=== PATIENT | female | born 1935 | race Caucasian/White ===

== ENCOUNTER 2019-02-03 09:34 | Inpatient (IN) | payer MEDICARE, BC, SELFPAY ==
[2019-02-03] VITALS (8 sets, daily range): BP systolic 111–167; BP diastolic 48–139; PULSE 62–79; RESP 13–20; TEMP 36.4–36.8; O2SAT 95–100; BMI 26.4; BMI 27.3; BMI 27.4
--- NOTE | 2019-02-03 09:39 | RAD_ITS ---
STUDY: X-RAY - LEFT TIBIA AND FIBULA REASON FOR EXAM: Female, 83 years old. Trauma TECHNIQUE: 2 view(s) of the tibia and fibula were obtained. COMPARISON: None. FINDINGS: Transverse fracture of the medial malleolus. Oblique fracture of the lateral malleolus. Widening of the ankle mortise. The proximal tibia and fibula are intact. RAD/Tibia & Fibula 2 Views IMPRESSION: Transverse fracture of the medial malleolus. Oblique fracture of the lateral malleolus. Widening of the ankle mortise. Electronically Signed: Ed Coyle MD at 10:37 EDT Tel , Service support ,
--- NOTE | 2019-02-03 09:44 | ED.VISSUMM ---
- ER Visit Summary Date of Service: 02/03/19 Chief Complaint: Left ankle injury History of Present Illness: The patient is a 83 F presents to the emergency department left ankle injury. Patient states she is going to the dentist this morning. She states that she stepped into the office and lost her balance. She twisted her left ankle and fell to the ground. She states it was swollen and there was a large bump. She pushed on it and it seemed to go back to normal. She is been unable to bear weight since. She did not strike her head. She denies loss of consciousness. She is otherwise been in her normal state of health. Physical Examination: Exam relatively unremarkable. Patient does have obvious deformity of the left ankle. Pulses are normal. Skin is intact. She does have some mild pain at the proximal fibula. Test Results: [] Emergency Department Course and Treatment: The patient has no tenting of the skin. X-rays do confirm a bimalleolar fracture. The patient was consented for conscious sedation and reduction. She was given propofol. When she was comfortably sedated, the ankle was reduced. She was placed in a sugar tong splint with a posterior plate. X-rays do show good reduction. I did discuss the patient with Dr. Cruz. He does feel that he will be able to repair this tomorrow. The patient will be admitted to the hospitalist for medical clearance and orthopedic intervention. Treatment Plan: [] Disposition: Admission Impression: 1. Closed left bimalleolar fracture 2. Conscious sedation 3. Fracture reduction 4. Splint by ED physician This note was generated with [employer] dictation software. It may contain incorrect words, spelling, and punctuation that were not noted in review of the chart prior to signing ED Disposition - Plan for ED Patient: Disposition: Acute Care [facility]
[2019-02-03] MEDS: Morphine 4 MG/ML Syringe IV (09:57)
[2019-02-03] MEDS: Ondansetron 4 MG/2 ML Vial IV (09:58)
--- NOTE | 2019-02-03 11:00 | RAD_ITS ---
STUDY: X-RAY - LEFT ANKLE REASON FOR EXAM: Female, 83 years old. Post reduction TECHNIQUE: 2 view(s) of the ankle. COMPARISON: Same day FINDINGS: Interval reduction of the ankle mortise and bimalleolar fractures. Mild residual mortise widening by approximately 4 mm. Casting material obscures fine detail. RAD/Ankle 2 Views IMPRESSION: Interval reduction of the ankle mortise and bimalleolar fractures. Mild residual mortise widening by approximately 4 mm. Electronically Signed: Ed Coyle MD at 11:52 EDT Tel , Service support ,
[2019-02-03] MEDS: Propofol 200 MG/20 ML Vial IV BOLUS (11:15)
--- NOTE | 2019-02-03 11:37 | EKG12_ITS ---
Test Reason : Blood Pressure : / mmHG Vent. Rate : 065 BPM Atrial Rate : 065 BPM P-R Int : 148 ms QRS Dur : 070 ms QT Int : 382 ms P-R-T Axes : 009 047 -11 degrees QTc Int : 397 ms Normal sinus rhythm Normal ECG Confirmed by SHERI HAMILTON, ANDREWS ([id number]), technical writer and editor KARINE HUGHES ([id number]) on 02/05/2019 1:18:32 PM Referred By: Juliette Reynaga Confirmed By:ANDREWS WADE MD
--- NOTE | 2019-02-03 11:44 | NURSING ---
NO OLD EKGS
--- NOTE | 2019-02-03 11:45 | RAD_ITS ---
STUDY: X-RAY CHEST REASON FOR EXAM: Female, 83 years old. Cough TECHNIQUE: Single frontal view of the chest. COMPARISON: None. FINDINGS: Moderate hiatal hernia. The lungs are clear and expanded. There is no demonstrated pleural abnormality. Normal size heart. Normal mediastinum and demetria. Normal visualized pulmonary arteries. Normal visualized aortic arch and descending thoracic aorta. Normal visualized thoracic spine. Normal visualized ribs, clavicles, and shoulders. There is no demonstrated abnormality of the visualized soft tissue structures of the upper abdomen. RAD/Chest 1 View (Portable) IMPRESSION: Moderate hiatal hernia. No evidence of acute intestinal pathology or acute obstructive uropathy. Electronically Signed: Ed Coyle MD at 12:04 EDT Tel , Service support ,
--- NOTE | 2019-02-03 11:49 | NURSING ---
DR LUIS F BUCHANAN
--- NOTE | 2019-02-03 11:54 | NURSING ---
MED SURG LEFT ANKLE FX SEMENTI
[2019-02-03 12:07] LABS: Absolute Lymphocyte Count 0.92 X10^3/ul (0.83-4.51); Absolute Neutrophil Count 5.1 X10^3/uL (2.0-7.7); Basophil# 0.02 X10^3/uL; Basophil% 0.3 % (0-1); Eosinophil# 0.02 X10^3/uL; Eosinophils% 0.3 % (0-5); Hematocrit 38.1 % (37-47); Hemoglobin 12.5 g/dl (12.0-15.0); Lymphocyte # 0.92 X10^3/ul (4.0); Mean Corp Hgb Conc 32.8 g/gl (32-36); Mean Corpuscular Hgb 32.3 pg (27.0-32.0); Mean Corpuscular Volume 98.4 fL (81-99); Mean Platelet Vol. 10.4 fl (6.2-12.0); Monocyte# 0.51 X10^3/uL; Monocyte% 7.8 % (0-10); Neutrophil # 5.07 X10^3/uL (2.7-7.7); Neutrophil % 77.4 % (47-70); POSITIVE COUNT NO; POSITIVE DIFFERENTIAL NO; POSITIVE MORPHOLOGY NO; Platelet Count 160 K/mm3 (150-450); RBC Distribution Width CV 13.8 % (11.6-14.6); RBC Distribution Width SD 49.1 fl (35.1-43.9); Red Blood Count 3.87 M/mm3 (4.2-5.4); White Blood Count 6.6 K/mm3 (4.4-11.0)
[2019-02-03 12:21] LABS: ALB/GLOB Ratio 1.3 RATIO (0.9-2.4); AST(SGOT) 16 U/L (15-37); Alanine Aminotransfer ALT/SGPT 17 U/L (13-56); Albumin, Serum 3.5 g/dL (3.2-5.0); Alkaline Phosphatase 68 U/L (45-117); Anion Gap 4 (5-15); BUN 18 mg/dL (7-18); BUN/Creat Ratio 25.6 RATIO (10-20); Calcium,Total 8.1 mg/dL (8.5-10.1); Chloride 111 mmol/L (98-107); EST Glomerular Filtration Rate 84 mL/min (>60); Est Glom Filt Rate - Afr Amer 102 mL/min (>60); Estimated Creatinine Clearance 34.64 ml/min; Globulin 2.7 g/dL (2.2-4.2); Glucose 95 mg/dL (74-106); Potassium 4.6 mmol/L (3.5-5.1); Protein, Total 6.2 g/dL (6.4-8.2); Sodium Level 143 mmol/L (136-145)
--- NOTE | 2019-02-03 13:47 | HP.PCM_ITS ---
Problem List (1) Bimalleolar fracture of left ankle Status: Acute (2) GERD (gastroesophageal reflux disease) Status: Chronic (3) HLD (hyperlipidemia) Status: Chronic (4) Benign essential tremor Status: Chronic (5) Vitamin D deficiency Status: Chronic History of Present Illness Date of Admission: 02/03/19 Chief Complaint: left rodrigo pain The patient is a 83 year old F with pmhx of essential tremor, hld, gerd, vit D deficiency, who presents to the ER with left ankle pain. She was walking into her dentists office when her foot somehow got caught in the doorway. She was unable to move it, and she twisted to the side and felt something shifting in her leg. She developed pain and could not walk, so she sat down on the ground without falling. She was brought to the ER and found to have a left bimalleolar fracture. This was reduced in the ER. Ortho Dr. Fall agreed to take her to the OR tomorrow, and the patient is agreeable. Currently pain is 5/10, improved from 7/10. She has no numbness or tingling in the affected extremity. She denies injuries elsewhere. [] Past Medical History Past Medical History (Chronic Problems): Chronic Problems GERD (gastroesophageal reflux disease) (Chronic) HLD (hyperlipidemia) (Chronic) Benign essential tremor (Chronic) Vitamin D deficiency (Chronic) Allergies meperidine [From Demerol] Allergy (Verified 02/03/19 09:36) Unknown Sulfa (Sulfonamide Antibiotics) Allergy (Verified 02/03/19 09:36) Upset Stomach Home Medications: Ambulatory Orders Medication Instructions Recorded Atorvastatin Calcium [Lipitor] 20 mg PO QHS 02/03/19 Cyanocobalamin (Vitamin B-12) 1,000 mcg PO QHS 02/03/19 [Vitamin B-12] Ergocalciferol (Vitamin D2) 50,000 unit PO Q7D 02/03/19 [Vitamin D2] Propranolol HCl 20 mg PO QHS 02/03/19 Ranitidine [Zantac] 150 mg PO 0500 02/03/19 Surgical History: hysterectomy, - - D&C x3-4 Psychiatric History: No pertinent psych hx Lives: Alone Smoking Status: Never smoker Tobacco Use: Non-smoker Alcohol: None Drugs: None - *Family History Maternal History Items: No pertinent history Paternal History Items: No pertinent history Review of Systems Constitutional: Denies: Chills, Fever, Weight Change HEENT: Denies: Head Aches, Sinus Congestion, Sinus Drainage Cardiovascular: Denies: Chest Pain, Palpitations Respiratory: Denies: Cough, Shortness of breath at rest, Sputum production Gastrointestinal: Denies: Abdominal Pain, Nausea, Vomiting Genitourinary: Denies: Dysuria Musculoskeletal: Reports: Leg Pain. Denies: Joint Pain, Joint Tenderness Skin: Denies: Rash, Wounds Neurological: Denies: Numbness, Tingling, Focal weakness Psychiatric: Denies: Anxiety, Depression, Homicidal Ideations, Suicidal Ideations Hematologic/ Lymphatic: Denies: Easy Bruising, Easy Bleeding VTE Information - Inpt Only VTE Present on Admission: No VTE Mechan Device Prophylaxis: None VTE Pharm Prophylaxis ordered?: Yes Patient Problems: Active and Suspected Problems Bimalleolar fracture of left ankle (Acute) - Physical Exam General: Alert, Oriented x3, Cooperative HEENT: Atraumatic, PERRLA, EOMI, Normocephalic Neck: Supple, No JVD, Negative Carotid Bruits Lungs: Clear to auscultation, Normal air movement Cardiovascular: Regular rate, No murmurs Abdomen: Bowel Sounds Present, Soft, Non Tender Extremities: No edema, Capillary Refill Less than 3 Seconds Skin: No rashes, No breakdown Musculoskeletal: - - left ankle dressed apporpriately. PMS intact in the left foot/toes Neurological: Cranial nerves II-XII grossly intact Psych/Mental Status: Normal Affect, Appropriate, Alert and oriented to time, place, person, mood and affect Vital Signs Temp Pulse Resp BP Pulse Ox 98.2 F 66 16 149/64 H 99 02/03/19 12:35 02/03/19 12:35 02/03/19 12:35 02/03/19 12:35 02/03/19 12:35 Oxygen Flow Rate (L/min) [5] 2 Oxygen Flow Rate (L/min) [4] 2 Oxygen Flow Rate (L/min) [3] 2 Oxygen Flow Rate (L/min) [2] 4 Oxygen Flow Rate (L/min) [1 ( 4 Initial Baseline)] Oxygen Flow Rate (L/min) 2 Oxygen Delivery Method [5] Nasal Cannula Oxygen Delivery Method [4] Nasal Cannula Oxygen Delivery Method [3] Nasal Cannula Oxygen Delivery Method [2] Nasal Cannula Oxygen Delivery Method [1 ( Nasal Cannula Initial Baseline)] Oxygen Delivery Method Room Air Weight: 149 lb 14.629 oz Body Mass Index (BMI) 27.3 Laboratory Tests Past 24 Hrs 02/03/19 02/03/19 11:55 11:55 WBC 6.6 RBC 3.87 L Hgb 12.5 Hct 38.1 MCV 98.4 MCH 32.3 H MCHC 32.8 RDW 13.8 RDW Differential 49.1 H Plt Count 160 MPV 10.4 Immature Gran % (Auto) 0.200 Neut % (Auto) 77.4 H Lymph % (Auto) 14.0 L [place] % (Auto) 7.8 Eos % (Auto) 0.3 Baso % (Auto) 0.3 Absolute Neuts (auto) 5.1 Absolute Lymphs (auto) 0.92 Total Counted Not Reportable Sodium 143 Potassium 4.6 Chloride 111 H Carbon Dioxide 28.0 Anion Gap 4 L BUN 18 Creatinine 0.70 Estim Creat Clear Calc 34.64 Est GFR (MDRD) Af Amer 102 Est GFR (MDRD) Non-Af 84 BUN/Creatinine Ratio 25.6 H Glucose 95 Calcium 8.1 L Total Bilirubin 0.60 AST 16 ALT 17 Alkaline Phosphatase 68 Total Protein 6.2 L Albumin 3.5 Globulin 2.7 Albumin/Globulin Ratio 1.3 Assessment/Plan All Active Problems Bimalleolar fracture of left ankle (Acute) 1. Acute Left bimalleolar fracture 2/2 mechanically foot caught in doorway, twisting movement. ortho following. Dr. Hernandez to take to OR tomorrow. Reduced in OR. Already on home VitD. Dietary consult. PTOT, supportive care. Gap is low, Chloride is high. 2. Essential tremor - on propranolol. 3. Vit D def - continue supplement. 4. GERD - on zantac 5. HLD - on statin DVT ppx: per ortho DC planning: likely needs SNF, lives alone in in law suite. This patient was seen by Nathen Sparks PA-C under the supervision of Dr. Reynaga.
[2019-02-03] MEDS: oxyCODONE 5 MG Tablet PO ×2 (15:53→20:07)
[2019-02-03 16:18] LABS: Bacteria 0 SEEN /hpf (None Seen); Mucous, Urine 0 SEEN /hpf (<or=2+); Red Blood Cells-Urine 0 SEEN /hpf (0-5); Squamous Epithelial Cells - UA 0 SEEN /hpf (5-10); White Blood Cells 0 SEEN /hpf (0-5)
[2019-02-03 17:16] LABS: Color, Urine Yellow (Yellow); Glucose, Dipstick Normal (Normal); Ketone-Dipstick 15 mg/dl (Negative); Leukocyte Esterase-Dipstick 25 /ul (Negative); Nitrite-Dipstick Positive (Negative); Occult Blood-Urine 25 /ul (Negative); Protein-Dipstick Negative (Negative); Urine Bilirubin Dipstick Negative (Negative); Urine Clarity Sl. Cloudy (Clear); Urine Urobilinogen Normal (Normal)
--- NOTE | 2019-02-03 18:09 | PCM.CONS.GEN ---
Reason for Consult Date of Consultation: 02/03/19 Reason for Consultation: left trimalleolar ankle fracture History of Present Illness: The patient is a 83 year old F who sustained a twisting injury at her dentist office earlier today. There was no fall. She does have some confusion about recollection of the injury however her daughter is in the room and is able to help facilitate the history. She denies any significant knee or hip pain set for occasional lateral sided knee and she had groin pain when she tried to ambulate not currently. She has had a hairline fracture many years ago in this ankle but no surgery in this lower extremity. She does admit to very sensitive feet and ankles all her life. Past Medical History Past Medical History (Chronic Problems): Chronic Problems GERD (gastroesophageal reflux disease) (Chronic) HLD (hyperlipidemia) (Chronic) Benign essential tremor (Chronic) Vitamin D deficiency (Chronic) Allergies meperidine [From Demerol] Allergy (Verified 02/03/19 09:36) Unknown Sulfa (Sulfonamide Antibiotics) Allergy (Verified 02/03/19 09:36) Upset Stomach Home Medications: Ambulatory Orders Medication Instructions Recorded Atorvastatin Calcium [Lipitor] 20 mg PO QHS 02/03/19 Cyanocobalamin (Vitamin B-12) 1,000 mcg PO QHS 02/03/19 [Vitamin B-12] Ergocalciferol (Vitamin D2) 50,000 unit PO Q7D 02/03/19 [Vitamin D2] Propranolol HCl 20 mg PO QHS 02/03/19 Ranitidine [Zantac] 150 mg PO 0500 02/03/19 Surgical History: hysterectomy, - - D&C x3-4 Psychiatric History: No pertinent psych hx Lives: Alone Smoking Status: Never smoker Tobacco Use: Non-smoker Alcohol: None Drugs: None - *Family History Maternal History Items: No pertinent history Paternal History Items: No pertinent history Patient Problems: Active and Suspected Problems Bimalleolar fracture of left ankle (Acute) Objective: X-rays reviewed pre-and postreduction demonstrate trimalleolar ankle fracture with improved alignment post reduction - Physical Exam General: Cooperative, No apparent distress, Confused Extremities: - - Left lower extremity in a posterior slab and stirrup splint well-padded apartments are soft in the calf and thigh there is no joint effusion or tenderness about the knee she does have brisk capillary refill. And bunion deformity Vital Signs Temp Pulse Resp BP Pulse Ox 97.8 F 75 14 133/66 H 100 02/03/19 15:50 02/03/19 15:50 02/03/19 15:50 02/03/19 15:50 02/03/19 15:50 Oxygen Flow Rate (L/min) [5] 2 Oxygen Flow Rate (L/min) [4] 2 Oxygen Flow Rate (L/min) [3] 2 Oxygen Flow Rate (L/min) [2] 4 Oxygen Flow Rate (L/min) [1 ( 4 Initial Baseline)] Oxygen Flow Rate (L/min) 2 Oxygen Delivery Method [5] Nasal Cannula Oxygen Delivery Method [4] Nasal Cannula Oxygen Delivery Method [3] Nasal Cannula Oxygen Delivery Method [2] Nasal Cannula Oxygen Delivery Method [1 ( Nasal Cannula Initial Baseline)] Oxygen Delivery Method Room Air Weight: 149 lb 14.629 oz Body Mass Index (BMI) 27.3 Laboratory Tests Past 24 Hrs 02/03/19 02/03/19 02/03/19 11:55 11:55 15:50 WBC 6.6 RBC 3.87 L Hgb 12.5 Hct 38.1 MCV 98.4 MCH 32.3 H MCHC 32.8 RDW 13.8 RDW Differential 49.1 H Plt Count 160 MPV 10.4 Immature Gran % (Auto) 0.200 Neut % (Auto) 77.4 H Lymph % (Auto) 14.0 L [place] % (Auto) 7.8 Eos % (Auto) 0.3 Baso % (Auto) 0.3 Absolute Neuts (auto) 5.1 Absolute Lymphs (auto) 0.92 Total Counted Not Reportable Sodium 143 Potassium 4.6 Chloride 111 H Carbon Dioxide 28.0 Anion Gap 4 L BUN 18 Creatinine 0.70 Estim Creat Clear Calc 34.64 Est GFR (MDRD) Af Amer 102 Est GFR (MDRD) Non-Af 84 BUN/Creatinine Ratio 25.6 H Glucose 95 Calcium 8.1 L Total Bilirubin 0.60 AST 16 ALT 17 Alkaline Phosphatase 68 Total Protein 6.2 L Albumin 3.5 Globulin 2.7 Albumin/Globulin Ratio 1.3 Urine Color Yellow Urine Clarity Sl. Cloudy Urine pH 6.0 Ur Specific [place] 1.010 Urine Protein Negative Urine Glucose (UA) Normal Urine Ketones 15 H Urine Occult Blood 25 H Urine Nitrite Positive H Urine Bilirubin Negative Urine Urobilinogen Normal Ur Leukocyte Esterase 25 H Urine RBC 0 SEEN Urine WBC 0 SEEN Ur Squamous Epith Cells 0 SEEN Urine Bacteria 0 SEEN Urine Mucus 0 SEEN Assessment/Plan All Active Problems Bimalleolar fracture of left ankle (Acute) Plan is for open reduction internal fixation of left ankle N.p.o. after midnight Consent signed Strict ice and elevation overnight Antibiotics on-call to the OR
[2019-02-03] MEDS: Lactated Ringers 1,000 ML 100 ML IV (20:07)
[2019-02-03] MEDS: Psyllium 1 PACKET PO (20:08)
[2019-02-03 20:57] LABS: Thyroid Stim Hormone (TSH) 2.13 uIU/mL (0.358-3.74)
[2019-02-03 21:20] LABS: PTHIN 100.8 pg/mL (18.4-80.1)
[2019-02-03] MEDS: Cyanocobalamin 500 MCG Tablet 1000 MCG PO (21:27)
[2019-02-03] MEDS: MELATONIN 3 MG TABLET 6 MG PO (21:27)
[2019-02-03] MEDS: Acetaminophen 500 MG Tablet 1000 MG PO (21:27)
[2019-02-03] MEDS: Propranolol 10 MG Tablet 20 MG PO (21:27)
[2019-02-03] MEDS: Atorvastatin Calcium 20 MG Tablet PO (21:27)
[2019-02-04] VITALS (13 sets, daily range): BP systolic 98–125; BP diastolic 40–81; PULSE 67–83; RESP 16–18; TEMP 36.4–37.2; O2SAT 92–100; BMI 26.9; BMI 27.4
[2019-02-04] MEDS: Morphine 2 MG/ML Syringe IV ×2 (05:18→08:44)
[2019-02-04] MEDS: 0.9% NaCl Peripheral Flush Adult/Peds IV (05:19)
[2019-02-04] MEDS: Lactated Ringers 1,000 ML 100 ML IV (05:26)
[2019-02-04 06:15] LABS: Absolute Lymphocyte Count 0.94 X10^3/ul (0.83-4.51); Absolute Neutrophil Count 3.2 X10^3/uL (2.0-7.7); Basophil# 0.01 X10^3/uL; Basophil% 0.2 % (0-1); Eosinophil# 0.06 X10^3/uL; Eosinophils% 1.2 % (0-5); Hematocrit 36.9 % (37-47); Hemoglobin 12.1 g/dl (12.0-15.0); Lymphocyte # 0.94 X10^3/ul (4.0); Lymphocyte % 19.1 % (19-41); Mean Corp Hgb Conc 32.8 g/gl (32-36); Mean Corpuscular Hgb 31.9 pg (27.0-32.0); Mean Corpuscular Volume 97.4 fL (81-99); Mean Platelet Vol. 10.4 fl (6.2-12.0); Monocyte# 0.68 X10^3/uL; Monocyte% 13.8 % (0-10); Neutrophil # 3.24 X10^3/uL (2.7-7.7); Neutrophil % 65.7 % (47-70); Platelet Count 146 K/mm3 (150-450); RBC Distribution Width CV 13.5 % (11.6-14.6); RBC Distribution Width SD 46.3 fl (35.1-43.9); Red Blood Count 3.79 M/mm3 (4.2-5.4); White Blood Count 4.9 K/mm3 (4.4-11.0)
[2019-02-04 06:21] LABS: POSITIVE COUNT NO; POSITIVE DIFFERENTIAL NO; POSITIVE MORPHOLOGY NO
[2019-02-04 06:34] LABS: Anion Gap 4 (5-15); BUN 15 mg/dL (7-18); BUN/Creat Ratio 20.1 RATIO (10-20); Calcium,Total 8.9 mg/dL (8.5-10.1); Chloride 108 mmol/L (98-107); Cholesterol 141 mg/dL (200); Creatinine, Serum 0.75 mg/dL (0.55-1.02); EST Glomerular Filtration Rate 79 mL/min (>60); Est Glom Filt Rate - Afr Amer 95 mL/min (>60); Estimated Creatinine Clearance 33.12 ml/min; Glucose 86 mg/dL (74-106); High Density Lipoprotein 70 mg/dL; Potassium 3.8 mmol/L (3.5-5.1); Sodium Level 139 mmol/L (136-145); Triglycerides 118 mg/dL; Very Low Density Lipoprotein 24 mg/dL (5-40)
--- NOTE | 2019-02-04 08:09 | PCM.PROGNOTE ---
Patient Problems: Active and Suspected Problems Bimalleolar fracture of left ankle (Acute) Subjective: The pt was seen independently and in conjunction with Nathen SOLER. Afebrile Vital signs stable Pulse ox 94-100% on room air. All lab was personally reviewed. Hemoglobin is 12.1 today. Platelets are mildly decreased at 146,000. BUN is 15 and the creatinine is 0.75. Triglycerides are within normal limits. LDL is 47 and the HDL is 70. TSH is normal at 2.13. PTH is elevated at 100.8. 24-hour urine is in progress. Vitamin D levels are pending. Calcium is normal at 8.9 today. She slept well last night. Pain is adequately controlled. Denies nausea, abdominal pain, shortness of breath, chest pain. Objective: PHYSICAL EXAM: GENERAL: alert, oriented X 3, Cooperative, NAD ORAL: moist mucosa, no mucosal lesions NECK: No JVD, supple, trachea midline, carotids had a brisk upstroke and good pulse volume with no carotid bruits, no cervical or supraclavicular lymphadenopathy LUNGS: CTA, symmetric chest expansion, good air exchange HEART: RRR, Normal S1 and S2, no rub, no gallop, no ectopy, 2/6 systolic ejection murmur heard at the second right intercostal space with no significant radiation. ABDOMEN: soft, she jumps with palpation of the LLQ, ND, BS present, no guarding with palpation, no masses and no hepatosplenomegaly EXTREMITIES: no edema, no clubbing, no cyanosis, no calf tenderness, intact sensation to both feet and the left foot is warm. peripheral pulses are normal.....could not get to the PT or DP on the left due to bandage. The popliteal on the left is 3/3. SKIN: No rashes, no breakdown NEUROLOGIC: no focal neurologic deficits PSYCH: appropriate, normal affect, pleasant - Physical Exam Vital Signs Temp Pulse Resp BP Pulse Ox 98.6 F 70 16 114/40 L 97 02/04/19 07:54 02/04/19 07:54 02/04/19 07:54 02/04/19 07:54 02/04/19 07:54 Oxygen Flow Rate (L/min) [5] 2 Oxygen Flow Rate (L/min) [4] 2 Oxygen Flow Rate (L/min) [3] 2 Oxygen Flow Rate (L/min) [2] 4 Oxygen Flow Rate (L/min) [1 ( 4 Initial Baseline)] Oxygen Flow Rate (L/min) 2 Oxygen Delivery Method [5] Nasal Cannula Oxygen Delivery Method [4] Nasal Cannula Oxygen Delivery Method [3] Nasal Cannula Oxygen Delivery Method [2] Nasal Cannula Oxygen Delivery Method [1 ( Nasal Cannula Initial Baseline)] Oxygen Delivery Method Room Air Weight: 147 lb 4.301 oz Body Mass Index (BMI) 26.9 Intake and Output for Last 24 Hours 02/02/19 02/03/19 02/04/19 23:59 23:59 23:59 Intake Total 300 / 300 898 / 898 Output Total 750 / 750 1140 / 1140 Balance -450 / -450 -242 / -242 Laboratory Tests Past 24 Hrs 02/03/19 02/03/19 02/03/19 11:55 11:55 11:55 WBC 6.6 RBC 3.87 L Hgb 12.5 Hct 38.1 MCV 98.4 MCH 32.3 H MCHC 32.8 RDW 13.8 RDW Differential 49.1 H Plt Count 160 MPV 10.4 Immature Gran % (Auto) 0.200 Neut % (Auto) 77.4 H Lymph % (Auto) 14.0 L [place] % (Auto) 7.8 Eos % (Auto) 0.3 Baso % (Auto) 0.3 Absolute Neuts (auto) 5.1 Absolute Lymphs (auto) 0.92 Total Counted Not Reportable Sodium 143 Potassium 4.6 Chloride 111 H Carbon Dioxide 28.0 Anion Gap 4 L BUN 18 Creatinine 0.70 Estim Creat Clear Calc 34.64 Est GFR (MDRD) Af Amer 102 Est GFR (MDRD) Non-Af 84 BUN/Creatinine Ratio 25.6 H Glucose 95 Calcium 8.1 L Total Bilirubin 0.60 AST 16 ALT 17 Alkaline Phosphatase 68 Total Protein 6.2 L Albumin 3.5 Globulin 2.7 Albumin/Globulin Ratio 1.3 Triglycerides Cholesterol LDL Cholesterol VLDL Cholesterol HDL Cholesterol Vitamin D 25-Hydroxy Vit D 1,25-Dihydroxy TSH 2.13 PTH Intact Urine Color Urine Clarity Urine pH Ur Specific [place] Urine Protein Urine Glucose (UA) Urine Ketones Urine Occult Blood Urine Nitrite Urine Bilirubin Urine Urobilinogen Ur Leukocyte Esterase Urine RBC Urine WBC Ur Squamous Epith Cells Urine Bacteria Urine Mucus Blood Type Antibody Screen 02/03/19 02/03/19 02/04/19 11:55 15:50 05:45 WBC 4.9 RBC 3.79 L Hgb 12.1 Hct 36.9 L MCV 97.4 MCH 31.9 MCHC 32.8 RDW 13.5 RDW Differential 46.3 H Plt Count 146 L MPV 10.4 Immature Gran % (Auto) 0.000 Neut % (Auto) 65.7 Lymph % (Auto) 19.1 [place] % (Auto) 13.8 H Eos % (Auto) 1.2 Baso % (Auto) 0.2 Absolute Neuts (auto) 3.2 Absolute Lymphs (auto) 0.94 Total Counted Not Reportable Sodium Potassium Chloride Carbon Dioxide Anion Gap BUN Creatinine Estim Creat Clear Calc Est GFR (MDRD) Af Amer Est GFR (MDRD) Non-Af BUN/Creatinine Ratio Glucose Calcium Total Bilirubin AST ALT Alkaline Phosphatase Total Protein Albumin Globulin Albumin/Globulin Ratio Triglycerides Cholesterol LDL Cholesterol VLDL Cholesterol HDL Cholesterol Vitamin D 25-Hydroxy Vit D 1,25-Dihydroxy TSH PTH Intact 100.8 H Urine Color Yellow Urine Clarity Sl. Cloudy Urine pH 6.0 Ur Specific [place] 1.010 Urine Protein Negative Urine Glucose (UA) Normal Urine Ketones 15 H Urine Occult Blood 25 H Urine Nitrite Positive H Urine Bilirubin Negative Urine Urobilinogen Normal Ur Leukocyte Esterase 25 H Urine RBC 0 SEEN Urine WBC 0 SEEN Ur Squamous Epith Cells 0 SEEN Urine Bacteria 0 SEEN Urine Mucus 0 SEEN Blood Type Antibody Screen 02/04/19 02/04/19 02/04/19 05:45 05:45 05:45 WBC RBC Hgb Hct MCV MCH MCHC RDW RDW Differential Plt Count MPV Immature Gran % (Auto) Neut % (Auto) Lymph % (Auto) [place] % (Auto) Eos % (Auto) Baso % (Auto) Absolute Neuts (auto) Absolute Lymphs (auto) Total Counted Sodium 139 Potassium 3.8 Chloride 108 H Carbon Dioxide 27.0 Anion Gap 4 L BUN 15 Creatinine 0.75 Estim Creat Clear Calc 33.12 Est GFR (MDRD) Af Amer 95 Est GFR (MDRD) Non-Af 79 BUN/Creatinine Ratio 20.1 H Glucose 86 Calcium 8.9 Total Bilirubin AST ALT Alkaline Phosphatase Total Protein Albumin Globulin Albumin/Globulin Ratio Triglycerides 118 Cholesterol 141 LDL Cholesterol 47 VLDL Cholesterol 24 HDL Cholesterol 70 Vitamin D 25-Hydroxy Pending Vit D 1,25-Dihydroxy TSH PTH Intact Urine Color Urine Clarity Urine pH Ur Specific [place] Urine Protein Urine Glucose (UA) Urine Ketones Urine Occult Blood Urine Nitrite Urine Bilirubin Urine Urobilinogen Ur Leukocyte Esterase Urine RBC Urine WBC Ur Squamous Epith Cells Urine Bacteria Urine Mucus Blood Type A POSITIVE Antibody Screen NEGATIVE 02/04/19 05:45 WBC RBC Hgb Hct MCV MCH MCHC RDW RDW Differential Plt Count MPV Immature Gran % (Auto) Neut % (Auto) Lymph % (Auto) [place] % (Auto) Eos % (Auto) Baso % (Auto) Absolute Neuts (auto) Absolute Lymphs (auto) Total Counted Sodium Potassium Chloride Carbon Dioxide Anion Gap BUN Creatinine Estim Creat Clear Calc Est GFR (MDRD) Af Amer Est GFR (MDRD) Non-Af BUN/Creatinine Ratio Glucose Calcium Total Bilirubin AST ALT Alkaline Phosphatase Total Protein Albumin Globulin Albumin/Globulin Ratio Triglycerides Cholesterol LDL Cholesterol VLDL Cholesterol HDL Cholesterol Vitamin D 25-Hydroxy Vit D 1,25-Dihydroxy Pending TSH PTH Intact Urine Color Urine Clarity Urine pH Ur Specific [place] Urine Protein Urine Glucose (UA) Urine Ketones Urine Occult Blood Urine Nitrite Urine Bilirubin Urine Urobilinogen Ur Leukocyte Esterase Urine RBC Urine WBC Ur Squamous Epith Cells Urine Bacteria Urine Mucus Blood Type Antibody Screen Medical Necessity - Tobacco Use Smoking Status: Never smoker Tobacco Use: Non-smoker Assessment/Plan All Active Problems Bimalleolar fracture of left ankle (Acute) Impressions 1. left bimalleolar ankle fracture with no Fall - suspect she has significant osteoporosis 2. Suspected osteoporosis 3. Hiatal hernia with gastroesophageal reflux disease-intolerant of bisphosphonates in the past 4. History of vitamin D deficiency 5. History of colon polyps 6. Benign essential tremor-controlled with Propanolol 7. Mild dehydration 8. Hyperlipidemia 9. back pain in the upper lumbar, lower thoracic area over the vertebral column - possible old compression fracture 10. increased PTH - primary or secondary hyperparathyroidism? surgery today await the results of the 24 hour urine and vitamin D levels to restart calcium and vitamin D supplementation Will likely need SNF at [place] Start Pepcid for Reflux Continue IV LR until she is able to eat Code Visit Inpatient E&M: 00212 Subs Hosp L2
[2019-02-04 08:35] LABS: Vitamin D,25 Hydroxy 60.2 ng/mL (29.95-100.01)
--- NOTE | 2019-02-04 10:05 | CASEMGMT ---
RN CM Note: unable to complete RN CM assessment at this time. Pt to surgery. Jesus NAVARRETEN RN ACM
--- NOTE | 2019-02-04 10:46 | RAD_ITS ---
STUDY: X-RAY - LEFT ANKLE REASON FOR EXAM: ORIF left ankle. TECHNIQUE: 5 intraoperative view(s) of the ankle. COMPARISON: Radiographs 02/03/2019. FINDINGS: There is an orthopedic plate and screws transfixing a distal fibular fracture in anatomical alignment and position. There are 2 orthopedic screws transfixing a medial malleolar fracture in anatomical alignment and position. Electronically Signed: Chang Cruz MD at 15:00 EDT Tel , Service support , RAD/Ankle min 3 Views
[2019-02-04] MEDS: Cefazolin 2 GM in 0.9% Normal Saline 100 ML IV ×3 (10:51→21:25)
--- NOTE | 2019-02-04 12:54 | PCM.OPRPT ---
Report of Operation Date of Procedure: 02/04/19 Description of Surgical Findings:: Preoperative diagnosis: Left ankle bimalleolar ankle fracture displaced Postoperative diagnosis: Same Procedure: Open reduction internal fixation Anesthesia: Spinal EBL: 10 Complications: None Condition: Stable to PACU Implants: Synthes distal fibular locking plate and 2x 40 mm partially threaded medial malleolus cancellus screws with one washer Indication for procedure: This is a pleasant 83-year-old female who twisted her ankle at the dentist office immediately had pain inability to ambulate was brought to the emergency room where x-rays demonstrated a displaced ankle fracture she did have a closed reduction in the emergency room was splinted she was unable to ambulate with crutches due to her age and stability and was unable to be discharged home she was admitted to the hospitalist service and plans for definitive ORIF were made. Risk benefits and alternatives were reviewed including risk of bleeding infection nerve, artery, bone, tissue damage, blood clot need for further surgery and continued pain. Procedure: Patient was met in the preoperative holding area once again the operative extremity was identified by both patient and physician and was marked. Patient was met by anesthesia and a spinal was placed. Patient was brought back to the operating room and transferred the operating table in the supine position. A bump was placed under the left hip and the left lower extremity was elevated with blankets a well-padded tourniquet was placed on the left upper thigh and she was prepped and draped in the usual sterile fashion. A timeout was called to ensure the proper patient procedure and extremity were being contemplated. An Esmarch was used to exsanguinate the extremity and the tourniquet was inflated to 300 mmHg. A 15 blade scalpel was used to make a curvilinear incision over the medial malleolus section was carried down to avoid injury to the saphenous vein and nerve the fracture site was then cleared of debris with sharp dissection and a fracture was booked open to allow thorough irrigation of the ankle joint and to ensure there was no loose bodies. It was irrigated. Attention was then turned towards the lateral side of the ankle and with sharp dissection a lateral approach was performed with attention to avoid injury to the superficial peroneal nerve in the proximal extent of the wound. Dissection was carried down as full-thickness flaps to the bone. The fracture site was once again identified and cleared of debris. With the use of nrbqg-es-anlut reduction clamps the fracture was reduced and a locking plate was positioned over the fracture plate was secured to the shaft with 2 cortical screws and secured distally with 3 locking screws then placed a final locking screw proximally and one more cortical screw proximally use of the locking screw was because of the quality of the bone. We then turned our attention to the medial malleolus fracture a bepal-qq-kntrg reduction clamp was used to reduce the fracture and 2 threaded K wires were inserted. The cortex was overdrilled and 40 mm cancellus screw x2 in a parallel orientation were placed a washer was placed on the anterior screw. There was excellent compression of the fracture site with excellent reduction. Wounds were thoroughly irrigated a final fluoroscopic images were taken and saved to the PACS system closure was performed with the 0 Vicryl the subcutaneous tissues followed by 3-0 nylon vertical mattress stitches with simple interrupteds in between. Dressing was applied in the form of Xeroform 4 x 4 ABD bulky Arora a stirrup and posterior slab plaster splint and an Abdirashid wrap. Patient tolerated the procedure well with no intraoperative complications she was brought back to the PACU in stable condition all counts were correct.
--- NOTE | 2019-02-04 15:04 | PCM.PROGNOTE ---
Patient Problems: Active and Suspected Problems Bimalleolar fracture of left ankle (Acute) Subjective: Pt resting comfortably in bed post op. No pain. Some tingling in the affected extremity. No SOB/Cough. No N/V. Pt had spinal anaesthesia. - Physical Exam General: Alert, Oriented x3, Cooperative HEENT: Atraumatic, PERRLA, EOMI, Normocephalic Neck: Supple, No JVD, Negative Carotid Bruits Lungs: Clear to auscultation, Normal air movement Cardiovascular: Regular rate, No murmurs Abdomen: Bowel Sounds Present, Soft, Non Tender Extremities: No edema, Capillary Refill Less than 3 Seconds Skin: No rashes, No breakdown Musculoskeletal: No Tenderness to Palpation of Joints or Extremities, - - PMS intact Neurological: Cranial nerves II-XII grossly intact Psych/Mental Status: Normal Affect, Appropriate, Alert and oriented to time, place, person, mood and affect Vital Signs Temp Pulse Resp BP Pulse Ox 98.9 F 69 18 103/81 H 96 02/04/19 13:52 02/04/19 13:52 02/04/19 13:52 02/04/19 13:52 02/04/19 13:52 Oxygen Flow Rate (L/min) [5] 2 Oxygen Flow Rate (L/min) [4] 2 Oxygen Flow Rate (L/min) [3] 2 Oxygen Flow Rate (L/min) [2] 4 Oxygen Flow Rate (L/min) [1 ( 4 Initial Baseline)] Oxygen Flow Rate (L/min) 2 Oxygen Delivery Method [5] Nasal Cannula Oxygen Delivery Method [4] Nasal Cannula Oxygen Delivery Method [3] Nasal Cannula Oxygen Delivery Method [2] Nasal Cannula Oxygen Delivery Method [1 ( Nasal Cannula Initial Baseline)] Oxygen Delivery Method Room Air Weight: 147 lb 4.301 oz Body Mass Index (BMI) 26.9 Intake and Output for Last 24 Hours 02/02/19 02/03/19 02/04/19 23:59 23:59 23:59 Intake Total 300 / 300 1898 / 1898 Output Total 750 / 750 1140 / 1140 Balance -450 / -450 758 / 758 Microbiology Past 72 Hours 02/03/19 15:50 Urine Culture - Preliminary Urine Catheter - Catheter Presumptive E. coli Laboratory Tests Past 24 Hrs 02/03/19 02/03/19 02/03/19 11:55 11:55 15:50 WBC RBC Hgb Hct MCV MCH MCHC RDW RDW Differential Plt Count MPV Immature Gran % (Auto) Neut % (Auto) Lymph % (Auto) Eddy % (Auto) Eos % (Auto) Baso % (Auto) Absolute Neuts (auto) Absolute Lymphs (auto) Total Counted Sodium Potassium Chloride Carbon Dioxide Anion Gap BUN Creatinine Estim Creat Clear Calc Est GFR (MDRD) Af Amer Est GFR (MDRD) Non-Af BUN/Creatinine Ratio Glucose Calcium Triglycerides Cholesterol LDL Cholesterol VLDL Cholesterol HDL Cholesterol Vitamin D 25-Hydroxy Vit D 1,25-Dihydroxy TSH 2.13 PTH Intact 100.8 H Urine Color Yellow Urine Clarity Sl. Cloudy Urine pH 6.0 Ur Specific [place] 1.010 Urine Protein Negative Urine Glucose (UA) Normal Urine Ketones 15 H Urine Occult Blood 25 H Urine Nitrite Positive H Urine Bilirubin Negative Urine Urobilinogen Normal Ur Leukocyte Esterase 25 H Urine RBC 0 SEEN Urine WBC 0 SEEN Ur Squamous Epith Cells 0 SEEN Urine Bacteria 0 SEEN Urine Mucus 0 SEEN Blood Type Antibody Screen 02/04/19 02/04/19 02/04/19 05:45 05:45 05:45 WBC 4.9 RBC 3.79 L Hgb 12.1 Hct 36.9 L MCV 97.4 MCH 31.9 MCHC 32.8 RDW 13.5 RDW Differential 46.3 H Plt Count 146 L MPV 10.4 Immature Gran % (Auto) 0.000 Neut % (Auto) 65.7 Lymph % (Auto) 19.1 Eddy % (Auto) 13.8 H Eos % (Auto) 1.2 Baso % (Auto) 0.2 Absolute Neuts (auto) 3.2 Absolute Lymphs (auto) 0.94 Total Counted Not Reportable Sodium 139 Potassium 3.8 Chloride 108 H Carbon Dioxide 27.0 Anion Gap 4 L BUN 15 Creatinine 0.75 Estim Creat Clear Calc 33.12 Est GFR (MDRD) Af Amer 95 Est GFR (MDRD) Non-Af 79 BUN/Creatinine Ratio 20.1 H Glucose 86 Calcium 8.9 Triglycerides 118 Cholesterol 141 LDL Cholesterol 47 VLDL Cholesterol 24 HDL Cholesterol 70 Vitamin D 25-Hydroxy Vit D 1,25-Dihydroxy TSH PTH Intact Urine Color Urine Clarity Urine pH Ur Specific [place] Urine Protein Urine Glucose (UA) Urine Ketones Urine Occult Blood Urine Nitrite Urine Bilirubin Urine Urobilinogen Ur Leukocyte Esterase Urine RBC Urine WBC Ur Squamous Epith Cells Urine Bacteria Urine Mucus Blood Type A POSITIVE Antibody Screen NEGATIVE 02/04/19 02/04/19 05:45 05:45 WBC RBC Hgb Hct MCV MCH MCHC RDW RDW Differential Plt Count MPV Immature Gran % (Auto) Neut % (Auto) Lymph % (Auto) Eddy % (Auto) Eos % (Auto) Baso % (Auto) Absolute Neuts (auto) Absolute Lymphs (auto) Total Counted Sodium Potassium Chloride Carbon Dioxide Anion Gap BUN Creatinine Estim Creat Clear Calc Est GFR (MDRD) Af Amer Est GFR (MDRD) Non-Af BUN/Creatinine Ratio Glucose Calcium Triglycerides Cholesterol LDL Cholesterol VLDL Cholesterol HDL Cholesterol Vitamin D 25-Hydroxy 60.2 Vit D 1,25-Dihydroxy Pending TSH PTH Intact Urine Color Urine Clarity Urine pH Ur Specific [place] Urine Protein Urine Glucose (UA) Urine Ketones Urine Occult Blood Urine Nitrite Urine Bilirubin Urine Urobilinogen Ur Leukocyte Esterase Urine RBC Urine WBC Ur Squamous Epith Cells Urine Bacteria Urine Mucus Blood Type Antibody Screen Medical Necessity - Tobacco Use Smoking Status: Never smoker Tobacco Use: Non-smoker Assessment/Plan All Active Problems Bimalleolar fracture of left ankle (Acute) 1. Acute Left bimalleolar fracture 2/2 mechanically foot caught in doorway, twisting movement. ortho following. Dr. Hernandez POD#0. Currently no pain. post spinal. good PMS. Already on home VitD q week. Dietary consult. PTOT, supportive care. Gap is low, Chloride is high. 2. Presumed Osteoporosis - currently do not have access to her prior DEXA scans. PTH is elevated, calcium has been mildly low to normal. TSH normal. Renal function normal. Vit D is normal - she is on weekly supplementaion. -She has not tolerated alendronate in the past, due to GI side effects, and a bisphosphonate is not indicated with her underlying hiatal hernia. -She likely needs an additional outpatient therapy, nonbisphosphonate, this will depend on further workup for the underlying etiology. -24 hour urine pending. 3. Essential tremor - on propranolol. 4. Vit D def - continue supplement. 5. GERD with hx hiatal hernia - on zantac 6. HLD - on statin DVT ppx: per ortho DC planning: PTOT for possible SNF placement. This patient was seen by Nathen Sparks PA-C under the supervision of Dr. Reynaga.
[2019-02-04] MEDS: Acetaminophen 500 MG Tablet 1000 MG PO ×2 (15:20→21:26)
[2019-02-04] MEDS: Famotidine 20 MG Tablet PO (15:21)
[2019-02-04] MEDS: Atorvastatin Calcium 20 MG Tablet PO (21:26)
[2019-02-04] MEDS: Cyanocobalamin 500 MCG Tablet 1000 MCG PO (21:26)
[2019-02-04] MEDS: MELATONIN 3 MG TABLET 6 MG PO (21:26)
[2019-02-04] MEDS: Propranolol 10 MG Tablet 20 MG PO (21:27)
[2019-02-04] MEDS: Lactated Ringers 1,000 ML 15 ML IV (23:32)
[2019-02-05 02:30] VITALS: BP 94/44; PULSE 76; RESP 16; TEMP 36.7; O2SAT 94
[2019-02-05] MEDS: Acetaminophen 500 MG Tablet 1000 MG PO ×3 (05:27→21:07)
[2019-02-05] MEDS: oxyCODONE 5 MG Tablet PO (05:27)
[2019-02-05] MEDS: Cefazolin 2 GM in 0.9% Normal Saline 100 ML IV (05:28)
--- NOTE | 2019-02-05 07:22 | PCM.PN.ORT ---
Patient Problems: Active and Suspected Problems Bimalleolar fracture of left ankle (Acute) Subjective: Seen and examined doing okay block has worn off and pain increased this morning no chest pain shortness of breath - Physical Exam General: Cooperative, No apparent distress Extremities: - - Dressing clean dry and intact. Intact sensation to light touch to toes brisk capillary refill compartments soft and compressible Vital Signs Temp Pulse Resp BP Pulse Ox 98.1 F 76 16 94/44 L 94 02/05/19 02:30 02/05/19 02:30 02/05/19 02:30 02/05/19 02:30 02/05/19 02:30 Oxygen Flow Rate (L/min) [5] 2 Oxygen Flow Rate (L/min) [4] 2 Oxygen Flow Rate (L/min) [3] 2 Oxygen Flow Rate (L/min) [2] 4 Oxygen Flow Rate (L/min) [1 ( 4 Initial Baseline)] Oxygen Flow Rate (L/min) 2 Oxygen Delivery Method [5] Nasal Cannula Oxygen Delivery Method [4] Nasal Cannula Oxygen Delivery Method [3] Nasal Cannula Oxygen Delivery Method [2] Nasal Cannula Oxygen Delivery Method [1 ( Nasal Cannula Initial Baseline)] Oxygen Delivery Method Room Air Weight: 147 lb 4.301 oz Body Mass Index (BMI) 26.9 Intake and Output for Last 24 Hours 02/03/19 02/04/19 02/05/19 23:59 23:59 23:59 Intake Total 300 / 300 3034 / 3034 1940 / 1940 Output Total 750 / 750 2090 / 2090 2100 / 2100 Balance -450 / -450 944 / 944 -160 / -160 Microbiology Past 72 Hours 02/03/19 15:50 Urine Culture - Preliminary Urine Catheter - Catheter Presumptive E. coli Laboratory Tests Past 24 Hrs 02/04/19 05:45 Vitamin D 25-Hydroxy 60.2 Medical Necessity - Tobacco Use Smoking Status: Never smoker Tobacco Use: Non-smoker Assessment/Plan All Active Problems Bimalleolar fracture of left ankle (Acute) Nonweightbearing left lower extremity Recommend aspirin 81 mg twice daily times 30 days secondary to immobility Dressing and splint to remain on until follow-up appointment 2 weeks in office. Must keep dressing clean and dry Strict elevation of foot higher than knee when not working with physical therapy for the next 2 weeks
[2019-02-05 08:30] VITALS: BP 114/79; PULSE 74; RESP 16; TEMP 36.3; O2SAT 98
[2019-02-05 08:55] LABS: (24 HR) Urine Calcium 196.2 mg/24 HR (42.0-353.0); 24HR UR TOTAL VOLUME 3325 ml; Calcium Urine pH Range 1; Urine Calcium (Random) 5.9 (Not Estab.)
--- NOTE | 2019-02-05 08:55 | PN_ITS ---
Patient Problems: Active and Suspected Problems Bimalleolar fracture of left ankle (Acute) Subjective: Postoperative day #1 She was seen independently and in conjunction with Nathen SOLER. Afebrile since admission Blood pressure is a little low today and is currently 94/44. Heart rate is 76. She is 93-94% saturated on room air. Fluid balance on 02/04/2019 was +944. Overnight she is -160. Urine obtained by straight cath on 02/03/2019 grew E. coli, greater than 100,000 colonies. It is pansensitive. She slept very well last night. When the epidural wore off she began to experience increased left lower extremity pain but the pain medication has been effective. Denies nausea. No shortness of breath, no cough, no CP. she does c/o pain in her hands and uses hot water to make them feel better. At times the PIP are red and swollen. she also had BL knee swelling and pain in the past. 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 No red or warm to touch joints. No rheumatoid nodules. Skin: No rashes Psych/Mental Status: Normal Affect, Appropriate Vital Signs Temp Pulse Resp BP Pulse Ox 98.1 F 76 16 94/44 L 94 02/05/19 02:30 02/05/19 02:30 02/05/19 02:30 02/05/19 02:30 02/05/19 02:30 Oxygen Flow Rate (L/min) [5] 2 Oxygen Flow Rate (L/min) [4] 2 Oxygen Flow Rate (L/min) [3] 2 Oxygen Flow Rate (L/min) [2] 4 Oxygen Flow Rate (L/min) [1 ( 4 Initial Baseline)] Oxygen Flow Rate (L/min) 2 Oxygen Delivery Method [5] Nasal Cannula Oxygen Delivery Method [4] Nasal Cannula Oxygen Delivery Method [3] Nasal Cannula Oxygen Delivery Method [2] Nasal Cannula Oxygen Delivery Method [1 ( Nasal Cannula Initial Baseline)] Oxygen Delivery Method Room Air Weight: 147 lb 4.301 oz Body Mass Index (BMI) 26.9 Intake and Output for Last 24 Hours 02/03/19 02/04/19 02/05/19 23:59 23:59 23:59 Intake Total 300 / 300 3034 / 3034 194 / 0 Output Total 750 / 750 2089 / 2099 Balance -450 / -450 944 / 944 -160 / -160 Microbiology Past 72 Hours 02/03/19 15:50 Urine Culture - Final Urine Catheter - Catheter Presumptive E. coli Laboratory Tests Past 24 Hrs 02/05/19 08:29 Urine pH Pending Urine Collection Time Pending Urine Total Volume Pending Urine Calcium Pending Ur Calcium 24 Hr Pending Medical Necessity - Tobacco Use Smoking Status: Never smoker Tobacco Use: Non-smoker Assessment/Plan All Active Problems Bimalleolar fracture of left ankle (Acute) Postoperative day #1 Impressions 1. left bimalleolar ankle fracture with no Fall - suspect she has significant osteoporosis 2. Suspected osteoporosis 3. Hiatal hernia with gastroesophageal reflux disease-intolerant of bisphosphonates in the past 4. History of vitamin D deficiency 5. History of colon polyps 6. Benign essential tremor-controlled with Propanolol 7. Mild dehydration 8. Hyperlipidemia 9. back pain in the upper lumbar, lower thoracic area over the vertebral column - possible old compression fracture 10. increased PTH - primary or secondary hyperparathyroidism? Restart vitamin D supplementation Calcium 500 mg p.o. 3 times daily with meals Evista 60 mg p.o. daily for suspected osteoporosis Check H&H and BMP now Check an RA and CCP DC [place] catheter since the 24-hour urine collection has concluded Duricef 500 mg twice daily for urinary tract infection X-rays of the lumbar and cervical spine residential at discharge when she is ready Code Visit Inpatient E&M: 15444 Subs Hosp L2
[2019-02-05 09:32] LABS: Hematocrit 36.2 % (37-47)
[2019-02-05 09:40] LABS: Anion Gap 3 (5-15); BUN 9 mg/dL (7-18); BUN/Creat Ratio 12.8 RATIO (10-20); Calcium,Total 8.5 mg/dL (8.5-10.1); Chloride 108 mmol/L (98-107); EST Glomerular Filtration Rate 84 mL/min (>60); Est Glom Filt Rate - Afr Amer 102 mL/min (>60); Estimated Creatinine Clearance 33.12 ml/min; Glucose 112 mg/dL (74-106); Potassium 3.7 mmol/L (3.5-5.1); Sodium Level 140 mmol/L (136-145)
--- NOTE | 2019-02-05 10:35 | CASEMGMT ---
RN CALEB COMPLIANCE REPRESENTATIVE DEALER CM to room to meet with patient for initial transition planning/care coordination assessment. PROSPER ELLIS introduced self and role at [facility]. Pt voices understanding and consents to assessment at this time. Pt resting in bed in no distress at this time. Pt is A/O at this time and answers all questions appropriately. Care providers, pharmacy, and demographics verified/updated at this time. PCP: Dr Joselyn Garner in [place] Preferred Pharmacy: [facility] Insurance: Aysha EPPS Prescription Benefit: Yes Living Will/HPOA: has both LW and HCPOA, who is her daughter, Tessie Crabtree. Pt made aware these are not on file @ [facility]. LNOK: Daughter Living Arrangements: Lives in an apt attached to her daughters home. HHC/SNF: wishes to go to TCU on discharge. Made aware there may not be a bed available when she is discharged and asked pt if she had a 2nd choice facility. Pt states she will discuss this with her daughter when she gets off of work. Provided pt with local SNF's. Mary JUSTICE, notified of pt's 1st choice and that pt wants to talk to her daughter re: 2nd choice. CM to follow for any further discharge planning/needs. Pt voices no further concerns/needs at this time. Advised pt to ask for CM if any further questions/concerns/needs arise. Voices understanding. PLAN: SNF. Ortega FELIZ RN, CM
--- NOTE | 2019-02-05 11:11 | CASEMGMT ---
Addendum entered by Mary Allen 02/05/19 15:14: Daughter called SW back and states she heard there may be a bed in TCU on Sunday. SW spoke w/Aggie, confirmed this. SW spoke w/physician, pt will not be ready for discharge before Sunday, and so can likely go to TCU on Sunday. SW let Aggie know, she will slot the bed on Sunday for pt. SW let pt's daughter know that pt will be able to go to TCU Sunday. SW will continue to follow. VIVIAN Calero Original Note: Addendum entered by Mary Allen 02/05/19 13:04: SW received a call back from Aggie at TCU, they will not have a bed tomorrow and pt will be ready for discharge tomorrow. SW spoke w/pt, explained the above, she states she will speak w/her daughter this evening about other snf choices this evening, and will let this SW know. SW asked if it would be okay to call her daughter, pt is in agreement with this. SW called daughter Tessie, explained to daughter that TCU will not have a bed when pt is ready for discharge, as pt will likely be ready for discharge tomorrow. SW explained to daughter spoke w/pt and pt gave permission to call daughter about other choices, explained pt does have a list of nursing homes in the area in the room. SW explained to daughter to let SW know tomorrow where she would like SW to send referral. SW explained the Medicare coverage and referral process for SNF. Daughter to call SW tomorrow. VIVIAN Calero Original Note: CM spoke w/pt about placement, pt wants TCU and plans to speak w/her daughter this evening in regard to alternative options in the event TCU does not have a bed. VINH called TCU and left a message, will continue to follow. VIVIAN Calero
[2019-02-05] MEDS: Famotidine 20 MG Tablet PO (11:20)
[2019-02-05] MEDS: Cefadroxil 500 MG CAPSULE PO ×2 (11:21→21:07)
[2019-02-05] MEDS: Aspirin 81 MG TAB.CHEW PO ×2 (11:22→21:07)
[2019-02-05] MEDS: Raloxifene HCl 60 MG Tablet PO (11:22)
[2019-02-05] MEDS: Psyllium 1 PACKET PO (11:22)
[2019-02-05] MEDS: Calcium Carbonate 500 MG Tablet PO ×2 (11:23→17:58)
--- NOTE | 2019-02-05 13:38 | CASEMGMT ---
CM let pt know that pt's LW/POA are not on file here at the hospital. VIVIAN Calero, SODA FOUNTAIN CLERK
--- NOTE | 2019-02-05 14:31 | PCM.PROGNOTE ---
Patient Problems: Active and Suspected Problems Bimalleolar fracture of left ankle (Acute) Subjective: When pain occurs, it completely resolves about 30 minutes after pain medication administered. PTOT evals. Will go to SNF at [place]. No urinary symptoms. No fever/chills. No cough/sob. Tolerating diet. No nausea/vomiting/abd pain. - Physical Exam General: Alert, Oriented x3, Cooperative HEENT: Atraumatic, PERRLA, EOMI, Normocephalic Neck: Supple, No JVD, Negative Carotid Bruits Lungs: Clear to auscultation, Normal air movement Cardiovascular: Regular rate, No murmurs Abdomen: Bowel Sounds Present, Soft, Non Tender Extremities: No edema, Capillary Refill Less than 3 Seconds Skin: No rashes, No breakdown Musculoskeletal: No Tenderness to Palpation of Joints or Extremities Neurological: Cranial nerves II-XII grossly intact Psych/Mental Status: Normal Affect, Appropriate Vital Signs Temp Pulse Resp BP Pulse Ox 97.3 F L 74 16 114/79 98 02/05/19 08:30 02/05/19 08:30 02/05/19 08:30 02/05/19 08:30 02/05/19 08:30 Oxygen Flow Rate (L/min) [5] 2 Oxygen Flow Rate (L/min) [4] 2 Oxygen Flow Rate (L/min) [3] 2 Oxygen Flow Rate (L/min) [2] 4 Oxygen Flow Rate (L/min) [1 ( 4 Initial Baseline)] Oxygen Flow Rate (L/min) 2 Oxygen Delivery Method [5] Nasal Cannula Oxygen Delivery Method [4] Nasal Cannula Oxygen Delivery Method [3] Nasal Cannula Oxygen Delivery Method [2] Nasal Cannula Oxygen Delivery Method [1 ( Nasal Cannula Initial Baseline)] Oxygen Delivery Method Room Air Weight: 147 lb 4.301 oz Body Mass Index (BMI) 26.9 Intake and Output for Last 24 Hours 02/03/19 02/04/19 02/05/19 23:59 23:59 23:59 Intake Total 300 / 300 3034 / 3034 2790 / 2790 Output Total 750 / 750 2090 / 2090 2200 / 2200 Balance -450 / -450 944 / 944 590 / 590 Microbiology Past 72 Hours 02/03/19 15:50 Urine Culture - Final Urine Catheter - Catheter Presumptive E. coli Laboratory Tests Past 24 Hrs 02/05/19 02/05/19 02/05/19 08:29 09:10 09:10 Hgb 12.0 Hct 36.2 L Sodium 140 Potassium 3.7 Chloride 108 H Carbon Dioxide 29.0 Anion Gap 3 L BUN 9 Creatinine 0.70 Estim Creat Clear Calc 33.12 Est GFR (MDRD) Af Amer 102 Est GFR (MDRD) Non-Af 84 BUN/Creatinine Ratio 12.8 Glucose 112 H Calcium 8.5 Urine pH 1 Urine Collection Time 24.0 Urine Total Volume 3325 Urine Calcium 5.9 Ur Calcium 24 Hr 196.2 Medical Necessity - Tobacco Use Smoking Status: Never smoker Tobacco Use: Non-smoker Assessment/Plan All Active Problems Bimalleolar fracture of left ankle (Acute) 1. Acute Left bimalleolar fracture 2/2 mechanically foot caught in doorway, twisting movement. ortho following. Dr. Hernandez POD#1. Currently no pain. post spinal. good PMS. Already on home VitD q week, add calcium. Dietary consult. PTOT, supportive care. Gap is low, Chloride is high. 2. Presumed Osteoporosis - currently do not have access to her prior DEXA scans. PTH is elevated, corrected calcium normal. TSH normal. Renal function normal. Vit D is normal - she is on weekly supplementation. -She has not tolerated alendronate in the past, due to GI side effects, and a bisphosphonate is not indicated with her underlying hiatal hernia. -Evista started. -24 hour urine pending. -Check C/T/L spine xrays 3. Essential tremor - on propranolol. 4. Vit D def - continue supplement. 5. GERD with hx hiatal hernia - on zantac 6. HLD - on statin DVT ppx: per ortho DC planning: PTOT for possible SNF placement. This patient was seen by Nathen Sparks PA-C under the supervision of Dr. Reynaga.
--- NOTE | 2019-02-05 14:36 | RAD_ITS ---
STUDY: X-RAY - CERVICAL SPINE REASON FOR EXAM: Female, 83 years old. Neck pain TECHNIQUE: 3 view(s) of the cervical spine were obtained. COMPARISON: None FINDINGS: Normal anterior atlantoaxial articulation. Normal odontoid process. 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 Normal cervical lordosis. Normal vertebral bodies and endplates. There is narrowing of the C4-5 disc space. The soft tissue structures are unremarkable. RAD/Cerv Spine 2 or 3 Views IMPRESSION: Narrowing of the C4-5 disc space. 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 If clinically indicated, CT would be helpful for further evaluation of this finding. Electronically Signed: Chandra Burkett MD at 20:09 EDT , Service support ,
--- NOTE | 2019-02-05 14:36 | PN_ITS ---
Addendum entered and electronically signed by KARLENE Baldwin 02/05/19 14:39: Code Visit ADDENDUM: Possible hx rheumatoid arthritis per patient, check RA and CRP. Pt has mild back pain throughout spine, with osteoporosis will obtain Xrays throughout to rule out compression fractures. Original Note: Patient Problems: Active and Suspected Problems Bimalleolar fracture of left ankle (Acute) Subjective: When pain occurs, it completely resolves about 30 minutes after pain medication administered. PTOT evals. [place] go [place] [facility] [place]. No urinary symptoms. No fever/chills. No cough/sob. Tolerating diet. No nausea/vomiting/abd pain. - Physical Exam General: Alert, Oriented x3, Cooperative HEENT: Atraumatic, PERRLA, EOMI, Normocephalic Neck: Supple, No JVD, Negative Carotid Bruits Lungs: Clear to auscultation, Normal air movement Cardiovascular: Regular rate, No murmurs Abdomen: Bowel Sounds Present, Soft, Non Tender Extremities: No edema, Capillary Refill Less than 3 Seconds Skin: No rashes, No breakdown Musculoskeletal: No Tenderness to Palpation of Joints or Extremities Neurological: Cranial nerves II-XII grossly intact Psych/Mental Status: Normal Affect, Appropriate Vital Signs Temp Pulse Resp BP Pulse Ox 97.3 F L 74 16 114/79 98 02/05/19 08:30 02/05/19 08:30 02/05/19 08:30 02/05/19 08:30 02/05/19 08:30 Oxygen Flow Rate (L/min) [5] 2 Oxygen Flow Rate (L/min) [4] 2 Oxygen Flow Rate (L/min) [3] 2 Oxygen Flow Rate (L/min) [2] 4 Oxygen Flow Rate (L/min) [1 ( 4 Initial Baseline)] Oxygen Flow Rate (L/min) 2 Oxygen Delivery Method [5] Nasal Cannula Oxygen Delivery Method [4] Nasal Cannula Oxygen Delivery Method [3] Nasal Cannula Oxygen Delivery Method [2] Nasal Cannula Oxygen Delivery Method [1 ( Nasal Cannula Initial Baseline)] Oxygen Delivery Method Room Air Weight: 147 lb 4.301 oz Body Mass Index (BMI) 26.9 Intake and Output for Last 24 Hours 02/03/19 02/04/19 02/05/19 23:59 23:59 23:59 Intake Total 300 / 300 3034 / 3034 2790 / 2790 Output Total 750 / 750 2090 / 2090 2200 / 2200 Balance -450 / -450 944 / 944 590 / 590 Microbiology Past 72 Hours 02/03/19 15:50 Urine Culture - Final Urine Catheter - Catheter Presumptive E. coli Laboratory Tests Past 24 Hrs 02/05/19 02/05/19 02/05/19 08:29 09:10 09:10 Hgb 12.0 Hct 36.2 L Sodium 140 Potassium 3.7 Chloride 108 H Carbon Dioxide 29.0 Anion Gap 3 L BUN 9 Creatinine 0.70 Estim Creat Clear Calc 33.12 Est GFR (MDRD) Af Amer 102 Est GFR (MDRD) Non-Af 84 BUN/Creatinine Ratio 12.8 Glucose 112 H Calcium 8.5 Urine pH 1 Urine Collection Time 24.0 Urine Total Volume 3325 Urine Calcium 5.9 Ur Calcium 24 Hr 196.2 Medical Necessity - Tobacco Use Smoking Status: Never smoker Tobacco Use: Non-smoker Assessment/Plan All Active Problems Bimalleolar fracture of left ankle (Acute) 1. Acute Left bimalleolar fracture 2/2 mechanically foot caught in doorway, twisting movement. ortho following. Dr. Hernandez POD#1. Currently no pain. post spinal. good PMS. Already on home VitD q week, add calcium. Dietary consult. PTOT, supportive care. Gap is low, Chloride is high. 2. Presumed Osteoporosis - currently do not have access to her prior DEXA scans. PTH is elevated, corrected calcium normal. TSH normal. Renal function normal. Vit D is normal - she is on weekly supplementation. -She has not tolerated alendronate in the past, due to GI side effects, and a bisphosphonate is not indicated with her underlying hiatal hernia. -Evista started. -24 hour urine pending. -Check C/T/L spine xrays 3. Essential tremor - on propranolol. 4. Vit D def - continue supplement. 5. GERD with hx hiatal hernia - on zantac 6. HLD - on statin DVT ppx: per ortho DC planning: PTOT for possible SNF placement. This patient was seen by Nathen Sparks PA-C under the supervision of Dr. Reynaga.
--- NOTE | 2019-02-05 15:15 | RAD_ITS ---
STUDY: X-RAY - LUMBAR SPINE REASON FOR EXAM: Female, 83 years old. Pain TECHNIQUE: 3 view(s) of the lumbar spine were obtained. COMPARISON: None FINDINGS: Normal lumbar lordosis. There is no substantial scoliosis. There is a normal alignment of the vertebrae. Normal vertebral bodies and endplates. Normal disc space heights. There are calcified plaques of the abdominal aorta. RAD/Lumbar Spine 2 or 3 Views IMPRESSION: Normal x-ray examination of the lumbar spine. There are calcified plaques of the abdominal aorta. Electronically Signed: Chandra Burkett MD at 16:08 EDT , Service support ,
[2019-02-05 15:21] LABS: Rheumatoid Factor < 10.0 IU/mL (<15)
[2019-02-05 16:16] VITALS: BP 105/43; PULSE 70; RESP 18; TEMP 36.8; O2SAT 98
[2019-02-05 20:10] VITALS: BP 118/56; PULSE 78; RESP 16; TEMP 37.6; O2SAT 97
[2019-02-05] MEDS: Cyanocobalamin 500 MCG Tablet 1000 MCG PO (21:07)
[2019-02-05] MEDS: Atorvastatin Calcium 20 MG Tablet PO (21:07)
[2019-02-05] MEDS: Propranolol 10 MG Tablet 20 MG PO (21:07)
[2019-02-05] MEDS: MELATONIN 3 MG TABLET 6 MG PO (21:07)
[2019-02-06] VITALS (7 sets, daily range): BP systolic 119–134; BP diastolic 37–58; PULSE 65–75; RESP 16–18; TEMP 36.1–36.8; O2SAT 98
[2019-02-06] MEDS: Acetaminophen 500 MG Tablet 1000 MG PO ×3 (05:25→22:05)
[2019-02-06] MEDS: oxyCODONE 5 MG Tablet PO (05:44)
--- NOTE | 2019-02-06 07:05 | PCM.PROGNOTE ---
Patient Problems: Active and Suspected Problems Bimalleolar fracture of left ankle (Acute) Subjective: All events of the past 24 hours of been reviewed. She had a low-grade fever last evening to 99.6. Vital signs are stable. Pulse ox is 97-98% on room air. Oral intake is good. All lab was personally reviewed. 24-hour urine calcium is high at 196. She complains to me that she had some lightheadedness early this morning when she was lying down when it initially started. She denies vertigo. She did have some stomach upset but did not have an emesis. She denies chest pain and also denies shortness of breath. She has no history of atrial fibrillation. Pain is adequately controlled. She was able to ambulate 15 feet with a wheeled walker and contact-guard assist this afternoon. She had good control of the assistive device and good technique. Additional therapy was recommended. Objective: PHYSICAL EXAM: GENERAL: alert, oriented X 3, Cooperative, NAD ORAL: moist mucosa, no mucosal lesions NECK: No JVD, supple, trachea midline LUNGS: CTA, symmetric chest expansion, excellent air exchange HEART: RRR, Normal S1 and S2, no rub, no gallop, 2/6 systolic ejection murmur at the second right intercostal space ABDOMEN: soft, NT, ND, BS present, no guarding with palpation EXTREMITIES: edema left lower extremity, no cyanosis, no calf tenderness, intact sensation to all toes on the left foot and the toes are warm SKIN: No rashes, no breakdown NEUROLOGIC: no focal neurologic deficits PSYCH: appropriate, normal affect, pleasant - Physical Exam Vital Signs Temp Pulse Resp BP Pulse Ox 97.6 F L 72 16 119/48 L 98 02/06/19 02:00 02/06/19 02:00 02/06/19 02:00 02/06/19 02:00 02/06/19 02:00 Oxygen Flow Rate (L/min) [5] 2 Oxygen Flow Rate (L/min) [4] 2 Oxygen Flow Rate (L/min) [3] 2 Oxygen Flow Rate (L/min) [2] 4 Oxygen Flow Rate (L/min) [1 ( 4 Initial Baseline)] Oxygen Flow Rate (L/min) 2 Oxygen Delivery Method [5] Nasal Cannula Oxygen Delivery Method [4] Nasal Cannula Oxygen Delivery Method [3] Nasal Cannula Oxygen Delivery Method [2] Nasal Cannula Oxygen Delivery Method [1 ( Nasal Cannula Initial Baseline)] Oxygen Delivery Method Room Air Weight: 147 lb 4.301 oz Body Mass Index (BMI) 26.9 Intake and Output for Last 24 Hours 02/04/19 02/05/19 02/06/19 23:59 23:59 23:59 Intake Total 3034 / 3034 3340 / 3340 900 / 900 Output Total 2090 / 2090 2200 / 2200 1100 / 1100 Balance 944 / 944 1140 / 1140 -200 / -200 Microbiology Past 72 Hours 02/03/19 15:50 Urine Culture - Final Urine Catheter - Catheter Presumptive E. coli Laboratory Tests Past 24 Hrs 02/05/19 02/05/19 02/05/19 08:29 09:10 09:10 Hgb 12.0 Hct 36.2 L Sodium 140 Potassium 3.7 Chloride 108 H Carbon Dioxide 29.0 Anion Gap 3 L BUN 9 Creatinine 0.70 Estim Creat Clear Calc 33.12 Est GFR (MDRD) Af Amer 102 Est GFR (MDRD) Non-Af 84 BUN/Creatinine Ratio 12.8 Glucose 112 H Calcium 8.5 C-React Prot Ext Range Urine pH 1 Urine Collection Time 24.0 Urine Total Volume 3325 Urine Calcium 5.9 Ur Calcium 24 Hr 196.2 Rheumatoid Factor 02/05/19 09:10 Hgb Hct Sodium Potassium Chloride Carbon Dioxide Anion Gap BUN Creatinine Estim Creat Clear Calc Est GFR (MDRD) Af Amer Est GFR (MDRD) Non-Af BUN/Creatinine Ratio Glucose Calcium C-React Prot Ext Range 102.00 H Urine pH Urine Collection Time Urine Total Volume Urine Calcium Ur Calcium 24 Hr Rheumatoid Factor < 10.0 Medical Necessity - Tobacco Use Smoking Status: Never smoker Tobacco Use: Non-smoker Assessment/Plan All Active Problems Bimalleolar fracture of left ankle (Acute) Postoperative day #2 Impressions 1. left bimalleolar ankle fracture with no Fall - suspect she has significant osteoporosis 2. Suspected osteoporosis 3. Hiatal hernia with gastroesophageal reflux disease-intolerant of bisphosphonates in the past 4. History of vitamin D deficiency 5. History of colon polyps 6. Benign essential tremor-controlled with Propanolol 7. Mild dehydration-resolved 8. Hyperlipidemia 9. back pain in the upper lumbar, lower thoracic area over the vertebral column - possible old compression fracture. No old compression fractures on x-rays 10. increased PTH - primary or secondary hyperparathyroidism? 11. Transient lightheadedness and nausea-etiology? Start HCTZ at a low dose to conserve Calcium in the kidney Place on telemetry. Need to exclude possible PAF as the etiology of the lightheadedness and nausea while lying down. Recheck lab in the a.m. Use Miacalcin for now instead of Evista since she will be more sedentary. Ultimately she would do better with a bisphosphonate....she may be able to tolerate an IV bisphosphonate such as Prolia. Possible transfer to TCU tomorrow if no PAF. Code Visit Inpatient E&M: 73684 Subs Hosp L2
[2019-02-06 08:03] LABS: Absolute Lymphocyte Count 0.88 X10^3/ul (0.83-4.51); Absolute Neutrophil Count 3.1 X10^3/uL (2.0-7.7); Basophil# 0.01 X10^3/uL; Basophil% 0.2 % (0-1); Eosinophil# 0.07 X10^3/uL; Eosinophils% 1.4 % (0-5); Erythrocyte Sedimentation Rate 29 mm/hr (0-30); Hematocrit 32.8 % (37-47); Hemoglobin 10.9 g/dl (12.0-15.0); Lymphocyte # 0.88 X10^3/ul (4.0); Lymphocyte % 18.2 % (19-41); Mean Corp Hgb Conc 33.2 g/gl (32-36); Mean Corpuscular Hgb 32.4 pg (27.0-32.0); Mean Corpuscular Volume 97.6 fL (81-99); Mean Platelet Vol. 10.6 fl (6.2-12.0); Monocyte# 0.82 X10^3/uL; Neutrophil # 3.05 X10^3/uL (2.7-7.7); Neutrophil % 63.2 % (47-70); Platelet Count 131 K/mm3 (150-450); RBC Distribution Width CV 13.7 % (11.6-14.6); RBC Distribution Width SD 49.2 fl (35.1-43.9); Red Blood Count 3.36 M/mm3 (4.2-5.4); White Blood Count 4.8 K/mm3 (4.4-11.0)
[2019-02-06] MEDS: Calcium Carbonate 500 MG Tablet PO ×3 (08:07→17:08)
[2019-02-06 08:10] LABS: POSITIVE COUNT NO; POSITIVE DIFFERENTIAL NO; POSITIVE MORPHOLOGY NO
[2019-02-06] MEDS: Famotidine 20 MG Tablet PO (09:39)
[2019-02-06] MEDS: Cefadroxil 500 MG CAPSULE PO ×2 (09:40→22:04)
[2019-02-06] MEDS: Aspirin 81 MG TAB.CHEW PO ×2 (09:41→22:03)
[2019-02-06] MEDS: Raloxifene HCl 60 MG Tablet PO (09:41)
--- NOTE | 2019-02-06 11:06 | CASEMGMT ---
SW spoke w/pt, let her know TCU will have a bed tomorrow for her and it is anticipated she will be discharged tomorrow. Pt was already aware, had spoken to her daughter. SW will follow for discharge to TCU most likely tomorrow. VIVIAN Calero
[2019-02-06] MEDS: Atorvastatin Calcium 20 MG Tablet PO (22:04)
[2019-02-06] MEDS: Propranolol 10 MG Tablet 20 MG PO (22:04)
[2019-02-06] MEDS: Cyanocobalamin 500 MCG Tablet 1000 MCG PO (22:05)
[2019-02-06] MEDS: MELATONIN 3 MG TABLET 6 MG PO (22:05)
[2019-02-07] VITALS (7 sets, daily range): BP systolic 116–139; BP diastolic 40–50; PULSE 61–75; RESP 16–18; TEMP 36.6–37; O2SAT 96–98
[2019-02-07] MEDS: Acetaminophen 500 MG Tablet 1000 MG PO (05:50)
[2019-02-07 06:06] LABS: Hematocrit 33.8 % (37-47); Hemoglobin 11.1 g/dl (12.0-15.0); Mean Corp Hgb Conc 32.8 g/gl (32-36); Mean Corpuscular Hgb 32.3 pg (27.0-32.0); Mean Corpuscular Volume 98.3 fL (81-99); Mean Platelet Vol. 10.1 fl (6.2-12.0); Platelet Count 156 K/mm3 (150-450); RBC Distribution Width CV 13.6 % (11.6-14.6); RBC Distribution Width SD 46.7 fl (35.1-43.9); Red Blood Count 3.44 M/mm3 (4.2-5.4); White Blood Count 4.2 K/mm3 (4.4-11.0)
[2019-02-07 06:12] LABS: Scan Indicated on CBC? Y/N NO
[2019-02-07 06:23] LABS: Anion Gap 6 (5-15); BUN 10 mg/dL (7-18); BUN/Creat Ratio 17.6 RATIO (10-20); Calcium,Total 8.8 mg/dL (8.5-10.1); Chloride 109 mmol/L (98-107); Creatinine, Serum 0.57 mg/dL (0.55-1.02); EST Glomerular Filtration Rate 108 mL/min (>60); Est Glom Filt Rate - Afr Amer 130 mL/min (>60); Estimated Creatinine Clearance 33.12 ml/min; Glucose 99 mg/dL (74-106); Magnesium 2.4 mg/dL (1.6-2.6); Potassium 4.2 mmol/L (3.5-5.1); Sodium Level 143 mmol/L (136-145)
--- NOTE | 2019-02-07 07:38 | PCM.TXEXTCAR ---
- Diet 02/04/19 16:40 Diet: regular Is pt able to select menu?: Yes - Routine Orders/Code Status Enema Type: Fleetz Enema Frequency: Daily PRN Suppository Type: Dulcolax 10mg Suppository Frequency: Daily PRN - Wound(s) lt ankle Wound Type: Surgical Incision - Therapies Weight Bearing: Non weight bearing Extremity Affected:: Left Lower Physical Therapy: Eval and Treat Occupational Therapy: Eval and Treat - Problem/Diagnosis (1) Bimalleolar fracture of left ankle Status: Acute Current Visit: Yes (2) Benign essential tremor Status: Chronic Current Visit: Yes (3) GERD (gastroesophageal reflux disease) Status: Chronic Current Visit: Yes (4) HLD (hyperlipidemia) Status: Chronic Current Visit: Yes (5) Vitamin D deficiency Status: Chronic Current Visit: Yes (6) Hiatal hernia Status: Chronic Current Visit: Yes (7) Osteoporosis Status: Suspected Current Visit: Yes (8) Colon polyps Status: Chronic Current Visit: Yes (9) Increased PTH level Status: Acute Current Visit: Yes (10) UTI (urinary tract infection) Status: Acute Current Visit: Yes - Allergies/Procedures Done in Hospital Allergies/Adverse Reactions: Allergies meperidine [From Demerol] Allergy (Verified 02/03/19 09:36) Unknown Sulfa (Sulfonamide Antibiotics) Allergy (Verified 02/03/19 09:36) Upset Stomach Procedures: - - ORIF Left ankle fx 02/04/19 - Type of Care/Length of Stay Estimated LOS: Convalescent Care Less Than 30 days Type of Care Needed: Skilled Rehab Potential: Good Prognosis: Good - Additional Orders/Day of Discharge H&P will serve as current which was dated: 02/03/19 Day of Discharge: 02/07/19 - Dietary and Speech Recommendations Dietitian Recommendations/Changes: Continue regular diet. Continue Ensure Enlive 120 mL 4x/day - Follow Up Care Please Follow Up With: Ayesha Elliott MD When: following DC from TCU Please Follow Up With: Mono Ross DO When: 2 weeks
[2019-02-07] MEDS: Famotidine 20 MG Tablet PO (08:15)
[2019-02-07] MEDS: Calcium Carbonate 500 MG Tablet PO (08:56)
[2019-02-07] MEDS: Aspirin 81 MG TAB.CHEW PO (08:56)
[2019-02-07] MEDS: hydroCHLOROthiazide 12.5mg 12.5 MG PO (08:57)
[2019-02-07] MEDS: Cefadroxil 500 MG CAPSULE PO (08:57)
[2019-02-07] MEDS: Calcitonin-Salmon 1 SPRAY SPRAY NARES (09:00)
--- NOTE | 2019-02-07 10:37 | PCM.DC.SUM ---
Discharge Date and Diagnosis - Problem List Patient Problems: Active and Suspected Problems Bimalleolar fracture of left ankle (Acute) Osteoporosis (Suspected) Increased PTH level (Acute) UTI (urinary tract infection) (Acute) Date of Admission: 02/03/19 Date of Discharge: 02/07/19 - Primary Discharge Diagnosis Active and Suspected Problems Bimalleolar fracture of left ankle (Acute) due to suspected osteoporosis Osteoporosis (Suspected) Increased PTH level (Acute) UTI (urinary tract infection) (Acute) - Secondary Discharge Diagnosis Chronic Problems GERD (gastroesophageal reflux disease) (Chronic) HLD (hyperlipidemia) (Chronic) Benign essential tremor (Chronic) Vitamin D deficiency (Chronic) Hiatal hernia (Chronic) Colon polyps (Chronic) Hospital Course and Treatment Imaging Results: Clinical Impression(s) from Imaging Studies Tibia/Fibula X-Ray 02/03/19 09:39 IMPRESSION: Transverse fracture of the medial malleolus. Oblique fracture of the lateral malleolus. Widening of the ankle mortise. Electronically Signed: Ed Coyle MD at 10:37 EDT Tel , Service support , Ankle X-Ray 02/03/19 11:00 IMPRESSION: Interval reduction of the ankle mortise and bimalleolar fractures. Mild residual mortise widening by approximately 4 mm. Electronically Signed: Ed Coyle MD at 11:52 EDT Tel , Service support , Chest X-Ray 02/03/19 11:45 IMPRESSION: Moderate hiatal hernia. No evidence of acute intestinal pathology or acute obstructive uropathy. Electronically Signed: Ed Coyle MD at 12:04 EDT Tel , Service support , Ankle X-Ray 02/04/19 10:46 Cervical Spine X-Ray 02/05/19 14:36 IMPRESSION: Narrowing of the C4-5 disc space. 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 If clinically indicated, CT would be helpful for further evaluation of this finding. Electronically Signed: Chandra Burkett MD at 20:09 EDT , Service support , Lumbar Spine X-Ray 02/05/19 15:15 IMPRESSION: Normal x-ray examination of the lumbar spine. There are calcified plaques of the abdominal aorta. Electronically Signed: Chandra Burkett MD at 16:08 EDT , Service support , Microbiology 02/03/19 15:50 Urine Catheter - Catheter Urine Culture - Final Presumptive E. coli Laboratory Results - last 24 hr 02/07/19 02/07/19 05:56 05:56 WBC 4.2 L RBC 3.44 L Hgb 11.1 L Hct 33.8 L MCV 98.3 MCH 32.3 H MCHC 32.8 RDW 13.6 RDW Differential 46.7 H Plt Count 156 MPV 10.1 Sodium 143 Potassium 4.2 Chloride 109 H Carbon Dioxide 28.0 Anion Gap 6 BUN 10 Creatinine 0.57 Estim Creat Clear Calc 33.12 Est GFR (MDRD) Af Amer 130 Est GFR (MDRD) Non-Af 108 BUN/Creatinine Ratio 17.6 Glucose 99 Calcium 8[address] Mono Cruz-orthopedics Operations: - - ORIF left ankle fracture on 02/04/[address] Ross Procedures: None Summary of Care Provided: Tamy Delgado is a 83YO female admitted with left ankle bimalleolar fracture. The patient did not fall the ankle fractured when she twisted it. Her past medical history is significant for GERD, hiatal hernia, heart murmur, hyperlipidemia, benign essential tremor, colon polyps, vitamin D deficiency and remote iron deficiency. She was put on Vitamin D in the past 1-2 months. She was not currently on calcium at admission. She is a non-smoker. She drinks a 2 Liter bottle of soda every 2 weeks. She denies any hx of thyroid disease. She apparently was on a bisphosphonate in the past but, she had increased heartburn and the medication was stopped. She was taken to surgery by Dr. Soria on 02/04/2019 for ORIF of the left ankle fracture. PT/OT was consulted and she has been ambulating with a FWW. Work-up for treatable causes of osteoporosis was undertaken in the hospital. PTH was elevated at 100.8 and the highest normal is 80.1. Calcium corrected for hypoalbuminemia is within normal limits. Generally the calcium is high with hypercalcemia but, there is a hx of hyperparathyroidism in her family so I think she deserves a work-up for hyperthyroidism as an OP. TSH was normal. 25 hydroxy vitamin D was normal. The 24-hour urine calcium was 196.2 Generally if it is > 200 HCTZ is used to retain calcium in the kidney. In light of the bimalleolar fracture without trauma/fall I suspect she has severe osteoporosis and I elected to start her on a low dose of HCTZ. She is intolerant of bisphosphonates and since she is less active than usual and in a cast so I did not start Evista because it can be prothrombotic. I started Miacalcin but, this is not the best treatment for osteoporosis and following recovery from the fracture would consider changing to Evista. She is on calcium and vitamin D supplementation a the time of DC. She should have a DEXA in the next few months. She has been told a long time ago that she has rheumatoid arthritis. ESR is 29 and the CRP is 102.......these may be elevated due to the fracture but, can not rule out inflammatory arthropathy. RA is <10 and the JANNY and CCP are pending. On 02/06/19 she had lightheadedness and nausea and she was placed on telemetry which showed NSR with no significant ectopy. Hemoglobin at the time of discharge is 11.1 and stable. White blood cell count is unremarkable and platelets are within normal limits. BMP is unremarkable. She was transferred to the transitional care unit on 02/07/2019 for further physical therapy prior to returning home. She will follow-up with Dr. Elliott following discharge from TCU. She needs to see Dr. Ross in the office in 2 weeks. She is strictly nonweightbearing on the left lower extremity and it should be elevated anytime she is in bed. She will be on aspirin 81 mg p.o. twice daily for DVT prophylaxis at the recommendation of Dr. Ross. 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 No red or warm to touch joints. No rheumatoid nodules. Skin: No rashes Psych/Mental Status: Normal Affect, Appropriate This note was generated with [employer] dictation software. It may contain incorrect words, spelling, and punctuation that were not noted in checking the note before signing. Patient Problems: Active and Suspected Problems Bimalleolar fracture of left ankle (Acute) Osteoporosis (Suspected) Increased PTH level (Acute) UTI (urinary tract infection) (Acute) - Physical Exam Vital Signs Temp Pulse Resp BP Pulse Ox 97.9 F 69 16 139/46 H 98 02/07/19 08:16 02/07/19 08:16 02/07/19 08:16 02/07/19 08:16 02/07/19 08:16 Oxygen Flow Rate (L/min) [5] 2 Oxygen Flow Rate (L/min) [4] 2 Oxygen Flow Rate (L/min) [3] 2 Oxygen Flow Rate (L/min) [2] 4 Oxygen Flow Rate (L/min) [1 ( 4 Initial Baseline)] Oxygen Flow Rate (L/min) 2 Oxygen Delivery Method [5] Nasal Cannula Oxygen Delivery Method [4] Nasal Cannula Oxygen Delivery Method [3] Nasal Cannula Oxygen Delivery Method [2] Nasal Cannula Oxygen Delivery Method [1 ( Nasal Cannula Initial Baseline)] Oxygen Delivery Method Room Air Weight: 147 lb 4.301 oz Body Mass Index (BMI) 26.9 Intake and Output for Last 24 Hours 02/05/19 02/06/19 02/07/19 23:59 23:59 23:59 Intake Total 3340 / 3340 1450 / 1450 450 / 450 Output Total 2200 / 2200 1100 / 1100 Balance 1140 / 1140 350 / 350 450 / 450 Microbiology Past 72 Hours 02/03/19 15:50 Urine Culture - Final Urine Catheter - Catheter Presumptive E. coli Laboratory Tests Past 24 Hrs 02/07/19 02/07/19 05:56 05:56 WBC 4.2 L RBC 3.44 L Hgb 11.1 L Hct 33.8 L MCV 98.3 MCH 32.3 H MCHC 32.8 RDW 13.6 RDW Differential 46.7 H Plt Count 156 MPV 10.1 Sodium 143 Potassium 4.2 Chloride 109 H Carbon Dioxide 28.0 Anion Gap 6 BUN 10 Creatinine 0.57 Estim Creat Clear Calc 33.12 Est GFR (MDRD) Af Amer 130 Est GFR (MDRD) Non-Af 108 BUN/Creatinine Ratio 17.6 Glucose 99 Calcium 8.8 Magnesium 2.4 Home Medications: Medications to take at Discharge Atorvastatin Calcium [Lipitor] 20 mg PO QHS 02/03/19 Cyanocobalamin (Vitamin B-12) [Vitamin B-12] 1,000 mcg PO QHS 02/03/19 Ergocalciferol (Vitamin D2) [Vitamin D2] 50,000 unit PO Q7D 02/03/19 Propranolol HCl 20 mg PO QHS 02/03/19 Acetaminophen [Tylenol] 1,000 mg PO Q8 tablet 02/07/19 Aspirin [Adult Aspirin Regimen] 81 mg PO BID #1 tablet. 02/07/19 Calcium Carbonate [Tums] 500 mg PO BIDCM tablet 02/07/19 Cefadroxil [Duricef] 500 mg PO BID #6 capsule 02/07/19 Famotidine [Pepcid] 20 mg PO DAILY tablet 02/07/19 Melatonin 6 mg PO QHS tablet 02/07/19 Oxycodone [Oxyir] 5 - 10 mg PO Q4H PRN PRN 7 Days #30 tablet 02/07/19 hydroCHLOROthiazide [Hydrochlorothiazide] 12.5 mg PO DAILY capsule 02/07/19 Following Prescrptions Were Given to Patient: Aspirin [Adult Aspirin Regimen] 81 mg PO BID #1 tablet. Primary Care Physician: [facility],Out of [Primary Care Provider] - Please Follow Up With: Ayesha Elliott MD When: following DC from TCU Please Follow Up With: Mono Ross DO When: 2 weeks Disposition: Halfway facility Minutes spent on discharge:: 35 Patient Condition:: Good Medical Necessity - Tobacco Use Smoking Status: Never smoker Tobacco Use: Non-smoker Meaningful Use Info Meaningful Use Diagnoses (Choose all that apply): None applicable Code Visit Inpatient E&M: 47413 Disch Hosp
--- NOTE | 2019-02-07 10:41 | DS.PCM_ITS ---
Discharge Date and Diagnosis - Problem List Patient Problems: Active and Suspected Problems Bimalleolar fracture of left ankle (Acute) Osteoporosis (Suspected) Increased PTH level (Acute) UTI (urinary tract infection) (Acute) Date of Admission: 02/03/19 Date of Discharge: 02/07/19 - Primary Discharge Diagnosis Active and Suspected Problems Bimalleolar fracture of left ankle (Acute) due to suspected osteoporosis Osteoporosis (Suspected) Increased PTH level (Acute) UTI (urinary tract infection) (Acute) - Secondary Discharge Diagnosis Chronic Problems GERD (gastroesophageal reflux disease) (Chronic) HLD (hyperlipidemia) (Chronic) Benign essential tremor (Chronic) Vitamin D deficiency (Chronic) Hiatal hernia (Chronic) Colon polyps (Chronic) Hospital Course and Treatment Imaging Results: Clinical Impression(s) from Imaging Studies Tibia/Fibula X-Ray 02/03/19 09:39 IMPRESSION: Transverse fracture of the medial malleolus. Oblique fracture of the lateral malleolus. Widening of the ankle mortise. Electronically Signed: Ed Coyle MD at 10:37 EDT Tel , Service support , Ankle X-Ray 02/03/19 11:00 IMPRESSION: Interval reduction of the ankle mortise and bimalleolar fractures. Mild residual mortise widening by approximately 4 mm. Electronically Signed: Ed Coyle MD at 11:52 EDT Tel , Service support , Chest X-Ray 02/03/19 11:45 IMPRESSION: Moderate hiatal hernia. No evidence of acute intestinal pathology or acute obstructive uropathy. Electronically Signed: Ed Coyle MD at 12:04 EDT Tel , Service support , Ankle X-Ray 02/04/19 10:46 Cervical Spine X-Ray 02/05/19 14:36 IMPRESSION: Narrowing of the C4-5 disc space. 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 If clinically indicated, CT would be helpful for further evaluation of this finding. Electronically Signed: Chandra Burkett MD at 20:09 EDT , Service support , Lumbar Spine X-Ray 02/05/19 15:15 IMPRESSION: Normal x-ray examination of the lumbar spine. There are calcified plaques of the abdominal aorta. Electronically Signed: Chandra Burkett MD at 16:08 EDT , Service support , Microbiology 02/03/19 15:50 Urine Catheter - Catheter Urine Culture - Final Presumptive E. coli Laboratory Results - last 24 hr 02/07/19 02/07/19 05:56 05:56 WBC 4.2 L RBC 3.44 L Hgb 11.1 L Hct 33.8 L MCV 98.3 MCH 32.3 H MCHC 32.8 RDW 13.6 RDW Differential 46.7 H Plt Count 156 MPV 10.1 Sodium 143 Potassium 4.2 Chloride 109 H Carbon Dioxide 28.0 Anion Gap 6 BUN 10 Creatinine 0.57 Estim Creat Clear Calc 33.12 Est GFR (MDRD) Af Amer 130 Est GFR (MDRD) Non-Af 108 BUN/Creatinine Ratio 17.6 Glucose 99 Calcium 8[address] Mono Cruz-orthopedics Operations: - - ORIF left ankle fracture on 02/04/[address] Ross Procedures: None Summary of Care Provided: Tamy Delgado is a 83YO female admitted with left ankle bimalleolar fracture. The patient did not fall the ankle fractured when she twisted it. Her past medical history is significant for GERD, hiatal hernia, heart murmur, hyperlipidemia, benign essential tremor, colon polyps, vitamin D deficiency and remote iron deficiency. She was put on Vitamin D in the past 1-2 months. She was not currently on calcium at admission. She is a non-smoker. She drinks a 2 Liter bottle of soda every 2 weeks. She denies any hx of thyroid disease. She apparently was on a bisphosphonate in the past but, she had increased heartburn and the medication was stopped. She was taken to surgery by Dr. Soria on 02/04/2019 for ORIF of the left ankle fracture. PT/OT was consulted and she medrano s been ambulating with a FWW. Work-up for treatable causes of osteoporosis was undertaken in the hospital. PTH was elevated at 100.8 and the highest normal is 80.1. Calcium corrected for hypoalbuminemia is within normal limits. Generally the calcium is high with hypercalcemia but, there is a hx of hyperparathyroidism in her family so I think she deserves a work-up for hyperthyroidism as an OP. TSH was normal. 25 hydroxy vitamin D was normal. The 24-hour urine calcium was 196.2 Generally if it is > 200 HCTZ is used to retain calcium in the kidney. In light of the bimalleolar fracture without trauma/fall I suspect she has severe osteoporosis and I elected to start her on a low dose of HCTZ. She is intolerant of bisphosphonates and since she is less active than usual and in a cast so I did not start Evista because it can be prothrombotic. I started Miacalcin but, this is not the best treatment for osteoporosis and following recovery from the fracture would consider changing to Evista. She is on calcium and vitamin D supplementation a the time of DC. She should have a DEXA in the next few months. She has been told a long time ago that she has rheumatoid arthritis. ESR is 29 and the CRP is 102.......these may be elevated due to the fracture but, can not rule out inflammatory arthropathy. RA is <10 and the JANNY and CCP are pending. On 02/06/19 she had lightheadedness and nausea and she was placed on telemetry which showed NSR with no significant ectopy. Hemoglobin at the time of discharge is 11.1 and stable. White blood cell count is unremarkable and platelets are within normal limits. BMP is unremarkable. She was transferred to the transitional care unit on 02/07/2019 for further physical therapy prior to returning home. She will follow-up with Dr. Elliott following discharge from TCU. She needs to see Dr. Ross in the office in 2 weeks. She is strictly nonweightbearing on the left lower extremity and it should be elevated anytime she is in bed. She will be on aspirin 81 mg p.o. twice daily for DVT prophylaxis at the recommendation of Dr. Rsos. 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 No red or warm to touch joints. No rheumatoid nodules. Skin: No rashes Psych/Mental Status: Normal Affect, Appropriate This note was generated with Eko dictation software. It may contain incorrect words, spelling, and punctuation that were not noted in checking the note before signing. Patient Problems: Active and Suspected Problems Bimalleolar fracture of left ankle (Acute) Osteoporosis (Suspected) Increased PTH level (Acute) UTI (urinary tract infection) (Acute) - Physical Exam Vital Signs Temp Pulse Resp BP Pulse Ox 97.9 F 69 16 139/46 H 98 02/07/19 08:16 02/07/19 08:16 02/07/19 08:16 02/07/19 08:16 02/07/19 08:16 Oxygen Flow Rate (L/min) [5] 2 Oxygen Flow Rate (L/min) [4] 2 Oxygen Flow Rate (L/min) [3] 2 Oxygen Flow Rate (L/min) [2] 4 Oxygen Flow Rate (L/min) [1 ( 4 Initial Baseline)] Oxygen Flow Rate (L/min) 2 Oxygen Delivery Method [5] Nasal Cannula Oxygen Delivery Method [4] Nasal Cannula Oxygen Delivery Method [3] Nasal Cannula Oxygen Delivery Method [2] Nasal Cannula Oxygen Delivery Method [1 ( Nasal Cannula Initial Baseline)] Oxygen Delivery Method Room Air Weight: 147 lb 4.301 oz Body Mass Index (BMI) 26.9 Intake and Output for Last 24 Hours 02/05/19 02/06/19 02/07/19 23:59 23:59 23:59 Intake Total 3340 / 3340 1450 / 1450 450 / 450 Output Total 2200 / 2200 1100 / 1100 Balance 1140 / 1140 350 / 350 450 / 450 Microbiology Past 72 Hours 02/03/19 15:50 Urine Culture - Final Urine Catheter - Catheter Presumptive E. coli Laboratory Tests Past 24 Hrs 02/07/19 02/07/19 05:56 05:56 WBC 4.2 L RBC 3.44 L Hgb 11.1 L Hct 33.8 L MCV 98.3 MCH 32.3 H MCHC 32.8 RDW 13.6 RDW Differential 46.7 H Plt Count 156 MPV 10.1 Sodium 143 Potassium 4.2 Chloride 109 H Carbon Dioxide 28.0 Anion Gap 6 BUN 10 Creatinine 0.57 Estim Creat Clear Calc 33.12 Est GFR (MDRD) Af Amer 130 Est GFR (MDRD) Non-Af 108 BUN/Creatinine Ratio 17.6 Glucose 99 Calcium 8.8 Magnesium 2.4 Home Medications: Medications to take at Discharge Atorvastatin Calcium [Lipitor] 20 mg PO QHS 02/03/19 Cyanocobalamin (Vitamin B-12) [Vitamin B-12] 1,000 mcg PO QHS 02/03/19 Ergocalciferol (Vitamin D2) [Vitamin D2] 50,000 unit PO Q7D 02/03/19 Propranolol HCl 20 mg PO QHS 02/03/19 Acetaminophen [Tylenol] 1,000 mg PO Q8 tablet 02/07/19 Aspirin [Adult Aspirin Regimen] 81 mg PO BID #1 tablet. 02/07/19 Calcium Carbonate [Tums] 500 mg PO BIDCM tablet 02/07/19 Cefadroxil [Duricef] 500 mg PO BID #6 capsule 02/07/19 Famotidine [Pepcid] 20 mg PO DAILY tablet 02/07/19 Melatonin 6 mg PO QHS tablet 02/07/19 Oxycodone [Oxyir] 5 - 10 mg PO Q4H PRN PRN 7 Days #30 tablet 02/07/19 hydroCHLOROthiazide [Hydrochlorothiazide] 12.5 mg PO DAILY capsule 02/07/19 Following Prescrptions Were Given to Patient: Aspirin [Adult Aspirin Regimen] 81 mg PO BID #1 tablet. Primary Care Physician: [facility],Out of [Primary Care Provider] - Please Follow Up With: Ayesha Elliott MD When: following DC from TCU Please Follow Up With: Mono Ross DO When: 2 weeks Disposition: [facility] facility Minutes spent on discharge:: 35 Patient Condition:: Good Medical Necessity - Tobacco Use Smoking Status: Never smoker Tobacco Use: Non-smoker Meaningful Use Info Meaningful Use Diagnoses (Choose all that apply): None applicable Code Visit Inpatient E&M: 49039 Disch Hosp
--- NOTE | 2019-02-07 11:18 | CASEMGMT ---
Pt is ready for discharge to TCU. VINH faxed all discharge paperwork to TCU. SW spoke w/pt, she is aware going to TCU today, SW let her know will call her daughter to let her know. RN called TCU, it is likely pt will go to TCU after lunch. VINH called pt's daughter, let her know pt is discharged to TCU and will likely go over after lunch. No further needs, pt to TCU today. VIVIAN Calero
[2019-02-07 11:19] LABS: Vitamin D 1,25-Dihydroxy 65.8 pg/mL (19.9-79.3)
--- NOTE | 2019-02-07 12:04 | NURSING ---
Report given to Nilay CHENG in TCU at this time.
[2019-02-08 15:22] LABS: CCP IgG Antibodies 2 units (0-19)
[2019-02-08 15:56] LABS: ANTINUCLEAR ANTIBODIES DIRECT Negative (Negative)
== END 2019-02-07 12:15 | disposition skilled nursing facility (03) | DRG 493 ==
LOC: ED 11:59 → MS2 12:05
PROVIDERS: Orthopaedic Surgery; Physician Assistant; Admitting Provider Internal Medicine; Emergency Provider Emergency Medicine; Referring Provider Internal Medicine; Visit Provider Internal Medicine
PROC: 0QSK04Z Reposition Left Fibula with Internal Fixation Device, Open Approach (ICD-10-PCS; principal; 2019-02-04 09:35)
DX: M80.862A Other osteoporosis with current pathological fracture, left lower leg, initial encounter for fracture (principal); N39.0 Urinary tract infection, site not specified; K21.9 Gastro-esophageal reflux disease without esophagitis; E78.5 Hyperlipidemia, unspecified; I10 Essential (primary) hypertension; E55.9 Vitamin D deficiency, unspecified; K44.9 Diaphragmatic hernia without obstruction or gangrene; G25.0 Essential tremor; E86.0 Dehydration; Z86.010 Personal history of colon polyps; M54.9 Dorsalgia, unspecified
CPT/HCPCS: 36415; 71045; 72040; 72100; 73590; 73600; 73610; 76000; 80048; 80053; 80061; 81001; 82306; 82340; 82652; 83735; 83970; 84443; 85014; 85018; 85025; 85027; 85652; 86038; 86140; 86200; 86225; 86235; 86431; 86850; 86900; 87086; 87088; 87186; 93005; 97110; 97162; 97166; 97530; 97802; 99152; 99285; C1713; J7030; J7050; J7120; A4216; J2405

== ENCOUNTER 2019-02-07 12:20 | Inpatient (IN) | payer MEDICARE, BC, SELFPAY ==
[2019-02-04 08:05] VITALS: BMI 26.9
[2019-02-07 13:00] VITALS: BP 140/62; PULSE 71; RESP 18; TEMP 36.9; O2SAT 96
[2019-02-07 14:09] VITALS: BMI 25.9
[2019-02-07 14:20] VITALS: BMI 25.9
--- NOTE | 2019-02-07 14:52 | PCM.HP.STD ---
Problem List (1) Heart murmur Status: Chronic (2) Bimalleolar fracture of left ankle Status: Acute (3) GERD (gastroesophageal reflux disease) Status: Chronic (4) HLD (hyperlipidemia) Status: Chronic (5) Benign essential tremor Status: Chronic (6) Vitamin D deficiency Status: Chronic (7) Hiatal hernia Status: Chronic (8) Colon polyps Status: Chronic History of Present Illness Date of Admission: 02/07/19 Chief Complaint: Here for rehabilitation, strengthening, prior to discharge home alone. The patient is a 83 year old Female with below past medical history presented to [facility] Emergency Department 02/03/2019 with left ankle injury. Fall, twisted left ankle, swollen. Unable to bear weight. Ankle deformed. 02/03/2019 X-ray left tibia/fibular showed transverse fracture medial malleolus, oblique fracture lateral malleolus, widening of ankle mortise. 02/03/2019 EKG normal sinus rhythm, normal EKG. 02/03/2019 Chest X-ray moderate hiatal hernia. Propofol given, ankle reduced, sugar tong splint, posterior plate applied. 02/03/2019 Admit to Hospital. Preoperative evaluation. 02/04/2019 Dr. Ross performed open reduction internal fixation left bimalleolar ankle fracture. 02/05/2019 X-ray cervical spine showed narrowing C4-5 disc space. developmental defects of lateral arches of C1 02/05/2019 X-ray lumbar spine normal. HCTZ started to help kidneys retain calcium. Bisphosphonates intolerable due to hiatal hernia, gastroesophageal reflux disease. Evista not used due to prothrombotic effect. Calcium, Vitamin D added for osteoporosis, recommend DEXA as outpatient. Aspirin 81MG twice daily for DVT prophylaxis. Urine culture growing > 100,000 E. Coli treated with Cefuroxime twice daily. 02/07/2019 Admit to TCU with debility, here for rehabilitation, strengthening, prior to discharge home alone. Resident with establish with Dr. Elliott for primary care. Past Medical History Past Medical History (Chronic Problems): Chronic Problems GERD (gastroesophageal reflux disease) (Chronic) HLD (hyperlipidemia) (Chronic) Benign essential tremor (Chronic) Vitamin D deficiency (Chronic) Hiatal hernia (Chronic) Colon polyps (Chronic) Heart murmur (Chronic) Allergies meperidine [From Demerol] Allergy (Verified 02/03/19 09:36) Unknown Sulfa (Sulfonamide Antibiotics) Allergy (Verified 02/03/19 09:36) Upset Stomach Home Medications: Ambulatory Orders Medication Instructions Recorded Atorvastatin Calcium [Lipitor] 20 mg PO QHS 02/03/19 Cyanocobalamin (Vitamin B-12) 1,000 mcg PO QHS 02/03/19 [Vitamin B-12] Ergocalciferol (Vitamin D2) 50,000 unit PO Q7D 02/03/19 [Vitamin D2] Propranolol HCl 20 mg PO QHS 02/03/19 Acetaminophen [Tylenol] 1,000 mg PO Q8 02/07/19 Aspirin [Adult Aspirin Regimen] 81 mg PO BID 02/07/19 Calcium Carbonate [Tums] 500 mg PO BIDCM 02/07/19 Cefadroxil [Duricef] 500 mg PO BID 02/07/19 Famotidine [Pepcid] 20 mg PO DAILY 02/07/19 Melatonin 6 mg PO QHS 02/07/19 Oxycodone [Oxyir] 5 - 10 mg PO Q4H PRN PRN 7 Days 02/07/19 #30 tablet hydroCHLOROthiazide 12.5 mg PO DAILY 02/07/19 [Hydrochlorothiazide] Surgical History: hysterectomy, - - Oopherectomy, skin cancer left ear, hemorrhoids, D&C x3-4 Psychiatric History: 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 Lives: Alone Smoking Status: Never smoker Alcohol: None Drugs: None - *Family History Maternal History Items: No pertinent history Paternal History Items: No pertinent history Review of Systems Constitutional: Denies: Chills, Fever, Weight Change HEENT: Denies: Head Aches, Sinus Congestion, Sinus Drainage Cardiovascular: Denies: Chest Pain, Palpitations Respiratory: Denies: Cough, Shortness of breath at rest, Sputum production Gastrointestinal: Denies: Abdominal Pain, Nausea, Vomiting Genitourinary: Denies: Dysuria Musculoskeletal: Denies: Joint Pain, Joint Tenderness Skin: Denies: Rash, Wounds Neurological: Denies: Numbness, Tingling, Focal weakness Psychiatric: Denies: Anxiety, Depression, Homicidal Ideations, Suicidal Ideations Hematologic/ Lymphatic: Denies: Easy Bruising, Easy Bleeding VTE Information - Inpt Only VTE Present on Admission: No VTE Mechan Device Prophylaxis: Knee High DEEJAY Hose VTE Pharm Prophylaxis ordered?: Yes - Physical Exam General: Alert, Oriented x3, Cooperative HEENT: Atraumatic, PERRLA, EOMI, Normocephalic Neck: Supple, No JVD, Negative Carotid Bruits Lungs: Clear to auscultation, Normal air movement Cardiovascular: Regular rate, No murmurs Abdomen: Bowel Sounds Present, Soft, Non Tender Extremities: No edema, Capillary Refill Less than 3 Seconds, - - Left lower extremity splinted. Skin: No rashes, No breakdown Musculoskeletal: No Tenderness to Palpation of Joints or Extremities Neurological: Cranial nerves II-XII grossly intact Psych/Mental Status: Normal Affect, Appropriate Vital Signs Temp Pulse Resp BP Pulse Ox 98.4 F 71 18 140/62 H 96 02/07/19 13:00 02/07/19 13:00 02/07/19 13:00 02/07/19 13:00 02/07/19 13:00 Oxygen Delivery Method Room Air Weight: 64.2 kg Body Mass Index (BMI) 25.9 Assessment/Plan All Active Problems Bimalleolar fracture of left ankle (Acute) Increased PTH level (Acute) UTI (urinary tract infection) (Acute) 83 year old female with below past medical history hospitalized for left bimalleolar fracture, underwent open reduction internal fixation 02/04/[address] Ross, complicated by severe osteoporosis, E. Coli UTI, admitted to TCU with debility, here for rehabilitation, strengthening, prior to discharge home alone. Debility - PT/OT. Pain - Tylenol 1000MG Q8H, Oxycodone 5MG Q4H PRN moderate pain. Bowel - Miralax 17GM daily, Senna/colace 2 tablets BID, Dulcolax 10MG PO daily PRN. Pneumonia vaccination - Administer Prevnar 13 and/or Pneumovax 23 as necessary. DVT prophylaxis - Aspirin 81MG BID thru 03/06/2019. Hyperlipidemia - Atorvastatin 20MG QHS. Hypocalcemia - Calcium 500MG BID, HCTZ 12.5MG daily. E. Coli UTI - Duricef 500MG BID thru 02/15/2019. Vitamin B12 deficiency - B12 1000MCG daily. Nutrition - Ensure Enlive 120ML 4x/day. Vitamin D deficiency - D2 50,000 units per week. GERD - Famotidine 20MG daily. Insomnia - Melatonin 6MG QHS. Benign essential tremor - Propranolol 20MG QHS. Osteoporosis - order bone density test, consider Prolia, or Tymlos.
--- NOTE | 2019-02-07 15:04 | HP.PCM_ITS ---
Problem List (1) Heart murmur Status: Chronic (2) Bimalleolar fracture of left ankle Status: Acute (3) GERD (gastroesophageal reflux disease) Status: Chronic (4) HLD (hyperlipidemia) Status: Chronic (5) Benign essential tremor Status: Chronic (6) Vitamin D deficiency Status: Chronic (7) Hiatal hernia Status: Chronic (8) Colon polyps Status: Chronic History of Present Illness Date of Admission: 02/07/19 Chief Complaint: Here for rehabilitation, strengthening, prior to discharge home alone. The patient is a 83 year old Female with below past medical history presented to [facility] Emergency Department 02/03/2019 with left ankle injury. Fall, twisted left ankle, swollen. Unable to bear weight. Ankle deformed. 02/03/2019 X-ray left tibia/fibular showed transverse fracture medial malleolus, oblique fracture lateral malleolus, widening of ankle mortise. 02/03/2019 EKG normal sinus rhythm, normal EKG. 02/03/2019 Chest X-ray moderate hiatal hernia. Propofol given, ankle reduced, sugar tong splint, posterior plate applied. 02/03/2019 Admit to Hospital. Preoperative evaluation. 02/04/2019 Dr. Ross performed open reduction internal fixation left bimalleolar ankle fracture. 02/05/2019 X-ray cervical spine showed narrowing C4-5 disc space. developmental defects of lateral arches of C1 02/05/2019 X-ray lumbar spine normal. HCTZ started to help kidneys retain calcium. Bisphosphonates intolerable due to hiatal hernia, gastroesophageal reflux disease. Evista not used due to prothrombotic effect. Calcium, Vitamin D added for osteoporosis, recommend DEXA as outpatient. Aspirin 81MG twice daily for DVT prophylaxis. Urine culture growing > 100,000 E. Coli treated with Cefuroxime twice daily. 02/07/2019 Admit to TCU with debility, here for rehabilitation, strengthening, prior to discharge home alone. Resident with establish with Dr. Elliott for primary care. Past Medical History Past Medical History (Chronic Problems): Chronic Problems GERD (gastroesophageal reflux disease) (Chronic) HLD (hyperlipidemia) (Chronic) Benign essential tremor (Chronic) Vitamin D deficiency (Chronic) Hiatal hernia (Chronic) Colon polyps (Chronic) Heart murmur (Chronic) Allergies meperidine [From Demerol] Allergy (Verified 02/03/19 09:36) Unknown Sulfa (Sulfonamide Antibiotics) Allergy (Verified 02/03/19 09:36) Upset Stomach Home Medications: Ambulatory Orders Medication Instructions Recorded Atorvastatin Calcium [Lipitor] 20 mg PO QHS 02/03/19 Cyanocobalamin (Vitamin B-12) 1,000 mcg PO QHS 02/03/19 [Vitamin B-12] Ergocalciferol (Vitamin D2) 50,000 unit PO Q7D 02/03/19 [Vitamin D2] Propranolol HCl 20 mg PO QHS 02/03/19 Acetaminophen [Tylenol] 1,000 mg PO Q8 02/07/19 Aspirin [Adult Aspirin Regimen] 81 mg PO BID 02/07/19 Calcium Carbonate [Tums] 500 mg PO BIDCM 02/07/19 Cefadroxil [Duricef] 500 mg PO BID 02/07/19 Famotidine [Pepcid] 20 mg PO DAILY 02/07/19 Melatonin 6 mg PO QHS 02/07/19 Oxycodone [Oxyir] 5 - 10 mg PO Q4H PRN PRN 7 Days 02/07/19 #30 tablet hydroCHLOROthiazide 12.5 mg PO DAILY 02/07/19 [Hydrochlorothiazide] Surgical History: hysterectomy, - - Oopherectomy, skin cancer left ear, hemorrhoids, D&C x3-4 Psychiatric History: 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 Lives: Alone Smoking Status: Never smoker Alcohol: None Drugs: None - *Family History Maternal History Items: No pertinent history Paternal History Items: No pertinent history Review of Systems Constitutional: Denies: Chills, Fever, Weight Change HEENT: Denies: Head Aches, Sinus Congestion, Sinus Drainage Cardiovascular: Denies: Chest Pain, Palpitations Respiratory: Denies: Cough, Shortness of breath at rest, Sputum production Gastrointestinal: Denies: Abdominal Pain, Nausea, Vomiting Genitourinary: Denies: Dysuria Musculoskeletal: Denies: Joint Pain, Joint Tenderness Skin: Denies: Rash, Wounds Neurological: Denies: Numbness, Tingling, Focal weakness Psychiatric: Denies: Anxiety, Depression, Homicidal Ideations, Suicidal Ideations Hematologic/ Lymphatic: Denies: Easy Bruising, Easy Bleeding VTE Information - Inpt Only VTE Present on Admission: No VTE Mechan Device Prophylaxis: Knee High DEEJAY Hose VTE Pharm Prophylaxis ordered?: Yes - Physical Exam General: Alert, Oriented x3, Cooperative HEENT: Atraumatic, PERRLA, EOMI, Normocephalic Neck: Supple, No JVD, Negative Carotid Bruits Lungs: Clear to auscultation, Normal air movement Cardiovascular: Regular rate, No murmurs Abdomen: Bowel Sounds Present, Soft, Non Tender Extremities: No edema, Capillary Refill Less than 3 Seconds, - - Left lower extremity splinted. Skin: No rashes, No breakdown Musculoskeletal: No Tenderness to Palpation of Joints or Extremities Neurological: Cranial nerves II-XII grossly intact Psych/Mental Status: Normal Affect, Appropriate Vital Signs Temp Pulse Resp BP Pulse Ox 98.4 F 71 18 140/62 H 96 02/07/19 13:00 02/07/19 13:00 02/07/19 13:00 02/07/19 13:00 02/07/19 13:00 Oxygen Delivery Method Room Air Weight: 64.2 kg Body Mass Index (BMI) 25.9 Assessment/Plan All Active Problems Bimalleolar fracture of left ankle (Acute) Increased PTH level (Acute) UTI (urinary tract infection) (Acute) 83 year old female with below past medical history hospitalized for left bimalleolar fracture, underwent open reduction internal fixation 02/04/[address] Ross, complicated by severe osteoporosis, E. Coli UTI, admitted to TCU with debility, here for rehabilitation, strengthening, prior to discharge home alone. * Debility - PT/OT. * Pain - Tylenol 1000MG Q8H, Oxycodone 5MG Q4H PRN moderate pain. * Bowel - Miralax 17GM daily, Senna/colace 2 tablets BID, Dulcolax 10MG PO daily PRN. * Pneumonia vaccination - Administer Prevnar 13 and/or Pneumovax 23 as necessary. * DVT prophylaxis - Aspirin 81MG BID thru 03/06/2019. * Hyperlipidemia - Atorvastatin 20MG QHS. * Hypocalcemia - Calcium 500MG BID, HCTZ 12.5MG daily. * E. Coli UTI - Duricef 500MG BID thru 02/15/2019. * Vitamin B12 deficiency - B12 1000MCG daily. * Nutrition - Ensure Enlive 120ML 4x/day. * Vitamin D deficiency - D2 50,000 units per week. * GERD - Famotidine 20MG daily. * Insomnia - Melatonin 6MG QHS. * Benign essential tremor - Propranolol 20MG QHS. * Osteoporosis - order bone density test, consider Prolia, or Tymlos.
[2019-02-07] MEDS: Senna/Docusate Sodium 1 Tablet 2 TABLET PO (18:26)
[2019-02-07] MEDS: Calcium Carbonate 500 MG Tablet PO (18:27)
[2019-02-07] MEDS: Aspirin E.C. 81 MG Tablet PO (18:28)
[2019-02-07] MEDS: Cefadroxil 500 MG CAPSULE PO (18:28)
[2019-02-07] MEDS: Atorvastatin Calcium 20 MG Tablet PO (21:00)
[2019-02-07] MEDS: MELATONIN 3 MG TABLET 6 MG PO (21:00)
[2019-02-07] MEDS: Cyanocobalamin 500 MCG Tablet 1000 MCG PO (21:00)
[2019-02-07] MEDS: Propranolol 10 MG Tablet 20 MG PO (21:01)
[2019-02-07] MEDS: Acetaminophen 500 MG Tablet 1000 MG PO (21:01)
[2019-02-08] MEDS: Acetaminophen 500 MG Tablet 1000 MG PO ×3 (06:08→21:28)
[2019-02-08] MEDS: Cefadroxil 500 MG CAPSULE PO ×2 (06:09→17:16)
[2019-02-08] MEDS: Famotidine 20 MG Tablet PO (06:09)
[2019-02-08] MEDS: hydroCHLOROthiazide 12.5mg 12.5 MG PO (06:10)
[2019-02-08] MEDS: Senna/Docusate Sodium 1 Tablet 2 TABLET PO ×2 (06:10→17:17)
[2019-02-08 06:50] LABS: Absolute Lymphocyte Count 0.96 X10^3/ul (0.83-4.51); Absolute Neutrophil Count 1.8 X10^3/uL (2.0-7.7); Basophil# 0.02 X10^3/uL; Basophil% 0.6 % (0-1); Eosinophil# 0.07 X10^3/uL; Hematocrit 33.9 % (37-47); Lymphocyte # 0.96 X10^3/ul (4.0); Lymphocyte % 27.3 % (19-41); Mean Corp Hgb Conc 32.4 g/gl (32-36); Mean Corpuscular Hgb 31.9 pg (27.0-32.0); Mean Corpuscular Volume 98.3 fL (81-99); Mean Platelet Vol. 10.1 fl (6.2-12.0); Monocyte# 0.68 X10^3/uL; Monocyte% 19.3 % (0-10); Neutrophil # 1.79 X10^3/uL (2.7-7.7); Neutrophil % 50.8 % (47-70); Platelet Count 179 K/mm3 (150-450); RBC Distribution Width CV 13.5 % (11.6-14.6); RBC Distribution Width SD 46.6 fl (35.1-43.9); Red Blood Count 3.45 M/mm3 (4.2-5.4); White Blood Count 3.5 K/mm3 (4.4-11.0)
[2019-02-08 06:52] LABS: POSITIVE COUNT NO; POSITIVE DIFFERENTIAL NO; POSITIVE MORPHOLOGY NO
[2019-02-08 07:19] LABS: Anion Gap 6 (5-15); BUN 12 mg/dL (7-18); BUN/Creat Ratio 17.6 RATIO (10-20); Calcium,Total 8.4 mg/dL (8.5-10.1); Chloride 104 mmol/L (98-107); Creatinine, Serum 0.68 mg/dL (0.55-1.02); EST Glomerular Filtration Rate 87 mL/min (>60); Est Glom Filt Rate - Afr Amer 105 mL/min (>60); Estimated Creatinine Clearance 33.12 ml/min; Glucose 96 mg/dL (74-106); Potassium 3.8 mmol/L (3.5-5.1); Sodium Level 138 mmol/L (136-145)
[2019-02-08] MEDS: Calcium Carbonate 500 MG Tablet PO ×2 (09:01→17:15)
[2019-02-08] MEDS: Aspirin E.C. 81 MG Tablet PO ×2 (09:01→17:16)
[2019-02-08] MEDS: Tuberculin,Purif.prot.deriv. 50 TU/ML Vial 5 ML ID (12:48)
[2019-02-08 16:00] VITALS: BP 122/63; PULSE 77; RESP 18; TEMP 37.2; O2SAT 93
[2019-02-08] MEDS: Ensure Clear 120 ML Liquid PO (21:27)
[2019-02-08] MEDS: Atorvastatin Calcium 20 MG Tablet PO (21:29)
[2019-02-08] MEDS: MELATONIN 3 MG TABLET 6 MG PO (21:29)
[2019-02-08] MEDS: Propranolol 10 MG Tablet 20 MG PO (21:29)
[2019-02-08] MEDS: Cyanocobalamin 500 MCG Tablet 1000 MCG PO (21:31)
[2019-02-09] MEDS: Famotidine 20 MG Tablet PO (06:06)
[2019-02-09] MEDS: hydroCHLOROthiazide 12.5mg 12.5 MG PO (06:06)
[2019-02-09] MEDS: Cefadroxil 500 MG CAPSULE PO ×2 (06:07→18:00)
[2019-02-09] MEDS: Senna/Docusate Sodium 1 Tablet 2 TABLET PO ×2 (06:07→18:00)
[2019-02-09] MEDS: Acetaminophen 500 MG Tablet 1000 MG PO ×3 (06:09→21:23)
[2019-02-09] MEDS: Calcium Carbonate 500 MG Tablet PO ×2 (08:32→18:00)
[2019-02-09] MEDS: Aspirin E.C. 81 MG Tablet PO ×2 (08:32→18:00)
[2019-02-09] MEDS: Ensure Clear 120 ML Liquid PO ×3 (09:58→21:22)
[2019-02-09 10:00] VITALS: RESP 16
--- NOTE | 2019-02-09 13:31 | NURSING ---
Addendum entered by Ti Velazquez 02/09/19 18:49: pt has external hemorrhoid, anusol suppository given per order. Original Note: c/o hemorrhoid pain. states uses anusol supp at home. ti toro made aware.
[2019-02-09 16:00] VITALS: BP 107/58; PULSE 72; RESP 16; TEMP 37.1; O2SAT 97
[2019-02-09] MEDS: Hydrocortisone 25 MG Suppository RECTAL (18:36)
[2019-02-09] MEDS: Atorvastatin Calcium 20 MG Tablet PO (21:23)
[2019-02-09] MEDS: Cyanocobalamin 500 MCG Tablet 1000 MCG PO (21:23)
[2019-02-09] MEDS: MELATONIN 3 MG TABLET 6 MG PO (21:23)
[2019-02-09] MEDS: Propranolol 10 MG Tablet 20 MG PO (21:23)
[2019-02-10] MEDS: Acetaminophen 500 MG Tablet 1000 MG PO ×3 (05:52→21:42)
[2019-02-10] MEDS: Senna/Docusate Sodium 1 Tablet 2 TABLET PO ×2 (05:52→17:07)
[2019-02-10] MEDS: Cefadroxil 500 MG CAPSULE PO ×2 (05:52→17:06)
[2019-02-10] MEDS: hydroCHLOROthiazide 12.5mg 12.5 MG PO (05:52)
[2019-02-10] MEDS: Famotidine 20 MG Tablet PO (05:53)
[2019-02-10] MEDS: Hydrocortisone 25 MG Suppository RECTAL (06:23)
[2019-02-10 07:25] VITALS: PULSE 76; RESP 18; O2SAT 98
--- NOTE | 2019-02-10 10:00 | NURSING ---
awakens easily, states had nausea this am. states took meds on empty stomach this am. encouraged pt to have snack with meds. communication sent to pharmacy to change duricef to breakfast time. pt made aware. states feeling better at this time. going to work with therapy and will eat breakfast after.
[2019-02-10] MEDS: Aspirin E.C. 81 MG Tablet PO ×2 (10:58→17:06)
--- NOTE | 2019-02-10 12:40 | NURSING ---
Patient's bone scan rescheduled for 02/12/19 at 0900.
[2019-02-10] MEDS: Ensure Clear 120 ML Liquid PO ×2 (13:55→21:41)
[2019-02-10 16:00] VITALS: BP 127/58; PULSE 72; RESP 16; TEMP 36.9; O2SAT 94
[2019-02-10] MEDS: MELATONIN 3 MG TABLET 6 MG PO (21:41)
[2019-02-10] MEDS: Propranolol 10 MG Tablet 20 MG PO (21:41)
[2019-02-10] MEDS: Atorvastatin Calcium 20 MG Tablet PO (21:42)
[2019-02-10] MEDS: Cyanocobalamin 500 MCG Tablet 1000 MCG PO (21:42)
[2019-02-11] MEDS: Acetaminophen 500 MG Tablet 1000 MG PO ×3 (05:25→20:33)
[2019-02-11] MEDS: hydroCHLOROthiazide 12.5mg 12.5 MG PO (05:26)
[2019-02-11] MEDS: Senna/Docusate Sodium 1 Tablet 2 TABLET PO ×2 (05:26→18:03)
[2019-02-11] MEDS: Famotidine 20 MG Tablet PO (05:27)
[2019-02-11] MEDS: Cefadroxil 500 MG CAPSULE PO (07:52)
[2019-02-11] MEDS: Aspirin E.C. 81 MG Tablet PO ×2 (07:52→18:03)
[2019-02-11] MEDS: Ensure Clear 120 ML Liquid PO (07:54)
[2019-02-11] MEDS: Hydrocortisone 25 MG Suppository RECTAL (11:29)
[2019-02-11 15:34] VITALS: BP 120/55; PULSE 74; RESP 16; TEMP 36.2; O2SAT 95
--- NOTE | 2019-02-11 16:05 | NURSING ---
Pt c/o nausea again today, states she took her meds this morning on an empty stomach and it upset her stomach. Dr. Elliott updated and N.O. orders received. Pt updated. Pt eating crackers and drinking water, states she feels better when rechecked, cont to monitor.
[2019-02-11] MEDS: Ondansetron ODT 4 MG Tablet PO (17:19)
[2019-02-11] MEDS: Calcium Carbonate 500 MG Tablet PO (18:03)
[2019-02-11] MEDS: Cyanocobalamin 500 MCG Tablet 1000 MCG PO (20:33)
[2019-02-11] MEDS: Propranolol 10 MG Tablet 20 MG PO (20:33)
[2019-02-11] MEDS: Atorvastatin Calcium 20 MG Tablet PO (20:33)
[2019-02-11] MEDS: MELATONIN 3 MG TABLET 6 MG PO (20:34)
[2019-02-12] MEDS: Acetaminophen 500 MG Tablet 1000 MG PO ×3 (04:40→21:02)
[2019-02-12] MEDS: hydroCHLOROthiazide 12.5mg 12.5 MG PO (04:41)
[2019-02-12] MEDS: Famotidine 20 MG Tablet PO (04:41)
[2019-02-12] MEDS: Hydrocortisone 25 MG Suppository RECTAL (04:42)
[2019-02-12] MEDS: Aspirin E.C. 81 MG Tablet PO (08:40)
[2019-02-12] MEDS: Calcium Carbonate 500 MG Tablet PO ×2 (08:40→16:49)
--- NOTE | 2019-02-12 10:57 | NURSING ---
Dr. Elliott updated on pt nausea, not eating well, new orders.
[2019-02-12] MEDS: Ondansetron ODT 4 MG Tablet 8 MG PO ×2 (11:22→20:58)
[2019-02-12 11:41] LABS: AST(SGOT) 21 U/L (15-37); Alanine Aminotransfer ALT/SGPT 16 U/L (13-56); Albumin, Serum 3.3 g/dL (3.2-5.0); Alkaline Phosphatase 76 U/L (45-117); Anion Gap 10 (5-15); BUN 13 mg/dL (7-18); BUN/Creat Ratio 21.7 RATIO (10-20); Calcium,Total 8.9 mg/dL (8.5-10.1); Chloride 92 mmol/L (98-107); EST Glomerular Filtration Rate 101 mL/min (>60); Est Glom Filt Rate - Afr Amer 123 mL/min (>60); Estimated Creatinine Clearance 33.12 ml/min; Globulin 3.4 g/dL (2.2-4.2); Glucose 96 mg/dL (74-106); Potassium 3.5 mmol/L (3.5-5.1); Protein, Total 6.7 g/dL (6.4-8.2); Sodium Level 126 mmol/L (136-145)
[2019-02-12] MEDS: Ensure Clear 120 ML Liquid PO ×3 (11:51→21:01)
--- NOTE | 2019-02-12 14:58 | CASEMGMT ---
Plan of care meeting held today with pt and daughter Tessie present. Pt is receiving PT/OT and progressing. No d/c date set at this time. Pt is planning on returning home at d/c, either to the mother in law suite she has been living in at Tessie's home, or to her daughter's home in [place]. Pt will need a wheelchair and wheeled walker upon d/c. Pt dgt obtaining raised toilet seat. Therapy is recommending home health services PT/OT. Will continue with treatment plan at this time. CHRISTOPHER Swann
[2019-02-12 15:28] VITALS: BP 122/62; PULSE 67; RESP 16; TEMP 37.2; O2SAT 93
[2019-02-12] MEDS: Senna/Docusate Sodium 1 Tablet 2 TABLET PO (16:49)
[2019-02-12] MEDS: Cyanocobalamin 500 MCG Tablet 1000 MCG PO (21:02)
[2019-02-12] MEDS: MELATONIN 3 MG TABLET 6 MG PO (21:02)
[2019-02-12] MEDS: Propranolol 10 MG Tablet 20 MG PO (21:02)
[2019-02-13] MEDS: Famotidine 20 MG Tablet PO (05:22)
[2019-02-13] MEDS: Enoxaparin 30 MG/0.3 ML Syringe SC (05:23)
[2019-02-13] MEDS: Acetaminophen 500 MG Tablet 1000 MG PO ×3 (05:23→21:18)
[2019-02-13] MEDS: Ondansetron ODT 4 MG Tablet 8 MG PO ×3 (05:23→21:17)
[2019-02-13 06:17] LABS: Anion Gap 9 (5-15); BUN 11 mg/dL (7-18); BUN/Creat Ratio 17.3 RATIO (10-20); Calcium,Total 8.3 mg/dL (8.5-10.1); Chloride 97 mmol/L (98-107); Creatinine, Serum 0.64 mg/dL (0.55-1.02); EST Glomerular Filtration Rate 95 mL/min (>60); Est Glom Filt Rate - Afr Amer 114 mL/min (>60); Estimated Creatinine Clearance 33.12 ml/min; Glucose 95 mg/dL (74-106); Potassium 3.3 mmol/L (3.5-5.1); Sodium Level 131 mmol/L (136-145)
[2019-02-13] MEDS: Calcium Carbonate 500 MG Tablet PO (08:22)
--- NOTE | 2019-02-13 10:20 | MDS.RN ---
Pain interview for lexx 02/14/19 completed.
[2019-02-13] MEDS: Hydrocortisone 25 MG Suppository RECTAL ×2 (10:46→21:20)
[2019-02-13] MEDS: Ensure Clear 120 ML Liquid PO ×2 (10:54→21:21)
--- NOTE | 2019-02-13 12:01 | PCM.PN.BLA ---
Progress Note Patient is an 83-year-old female known to me from a recent admission to the hospital for trimalleolar fracture of the left ankle. Since coming to the transitional care unit she has been experiencing a dizzy/lightheaded feeling and also having excessive belching, flatulence and nausea. She is having a difficult time eating because the smell bothers her. New medications since coming to the hospital include melatonin 6 mg nightly, calcium carbonate and MiraLAX however she has refused the MiraLAX. The dizziness can be attributed to melatonin and we will decrease the dose to 1.5 mg nightly. She was hyponatremic to 126 on 02/12 on received 1 Liter of NS with K and the sodium today is 133 but, she remains nauseated and having a lot of gas. K is low and has been supplemented. I discussed some changes with Dr. Elliott on the phone and he is in agreement. Increase the Anusol to scheduled BID until he hemorrhoidal pain is improved. DC the calcium carbonate.....nausea and flatulence are 2 of the most common side effects and decrease Melatonin to 1.5 mg. The recommended dose for patients over 70 years of age in the literature is actually 0.5-1 mg but, the hospital only has 3 mg tablets so will give 1.5 mg. If the head sensation continues will DC the Melatonin. Will also try Simethicone ACHS to help with gas. Will check back with her tomorrow to see if she has had any improvement.
--- NOTE | 2019-02-13 12:49 | CASEMGMT ---
Addendum entered by Bianka Rojas 02/13/19 15:02: Student Social Work MDS documentation reviewed. CHRISTOPHER Swann Original Note: Brief interview for mental status (BIMS) and mood (PHQ-9) completed on this day. BIMS score . PHQ-9 score 12/25. Ayleen Crain social work student
--- NOTE | 2019-02-13 14:45 | PCM.PN.RX ---
<Dequan Myers D - Last Filed: 02/13/19 14:45> Progress Note - Pharmacy Subjective: TCU Admission Objective: Allergies meperidine [From Demerol] Allergy (Verified 02/03/19 09:36) Unknown Sulfa (Sulfonamide Antibiotics) Allergy (Verified 02/03/19 09:36) Upset Stomach Current Medications Generic Name Dose Route Start Last Admin Trade Name Freq PRN Reason Stop Dose Admin Acetaminophen 1,000 mg 02/07/19 22:00 02/13/19 13:44 Tylenol PO 1,000 mg Q8 [facility] Administration Atorvastatin Calcium 20 mg 02/07/19 22:00 02/12/19 10:56 Lipitor PO Not Given QHS [facility] Bisacodyl 10 mg 02/07/19 15:24 Dulcolax PO DAILY PRN Constipation Calamine/Phenol 1 applic 02/08/19 12:55 Calmoseptine Ointment TOPICAL BID PRN PRN Hemorrhoids Protocol Cyanocobalamin 1,000 mcg 02/07/19 22:00 02/12/19 21:02 Vitamin B12 PO 1,000 mcg QHS [facility] Administration Enoxaparin Sodium 30 mg 02/13/19 06:00 02/13/19 05:23 Lovenox SC 30 mg DAILY@0600 [facility] Administration Ergocalciferol 50,000 unit 02/11/19 10:00 02/11/19 12:39 Vitamin D PO 50,000 unit Q7D [facility] Administration Famotidine 20 mg 02/08/19 06:00 02/13/19 05:22 Pepcid PO 20 mg DAILY [facility] Administration Hydrocortisone Acetate 25 mg 02/13/19 18:00 Anusol Hc RECTAL BID [facility] Melatonin 1.5 mg 02/13/19 22:00 Melatonin PO QHS [facility] Nutritional Formula (Lactose Free) 120 ml 02/08/19 22:00 02/13/19 13:44 Ensure Clear PO Not Given 1000,1400,2200 [facility] Ondansetron HCl 8 mg 02/12/19 14:00 02/13/19 13:44 Zofran Odt PO 8 mg Q8 [facility] Administration Oxycodone HCl 5 mg 02/07/19 15:25 Oxyir PO Q4H PRN MODERATE PAIN (4-5/10) Polyethylene Glycol 17 gm 02/08/19 06:00 02/13/19 05:24 Miralax PO Not Given DAILY [facility] Propranolol HCl 20 mg 02/07/19 22:00 02/12/19 21:02 Inderal PO 20 mg QHS [facility] Administration Senna/Docusate Sodium 2 tablet 02/07/19 18:00 02/13/19 05:24 Senokot-S, Emily-Colace PO Not Given BID [facility] Simethicone 80 mg 02/13/19 13:00 02/13/19 13:43 Mylicon PO 80 mg PCHS [facility] Administration Tuberculin PPD 5 tu 02/15/19 10:00 Tubersol, Aplisol, Ppd ID 02/15/19 10:01 X1 ONE Problem List Heart murmur (Chronic) Vital Signs Temp Pulse Resp BP Pulse Ox 98.9 F 67 16 122/62 H 93 02/12/19 15:28 02/12/19 15:28 02/12/19 15:28 02/12/19 15:28 02/12/19 15:28 Oxygen Delivery Method Room Air Weight: 62.369 kg Body Mass Index (BMI) 25.9 Sodium 131 mmol/L (136-145) L 02/13/19 05:20 Potassium 3.3 mmol/L (3.5-5.1) L 02/13/19 05:20 Chloride 97 mmol/L (98-107) L 02/13/19 05:20 Carbon Dioxide 25.0 mmol/L (21.0-32.0) 02/13/19 05:20 Anion Gap 9 (5-15) 02/13/19 05:20 BUN 11 mg/dL (7-18) 02/13/19 05:20 Creatinine 0.64 mg/dL (0.55-1.02) 02/13/19 05:20 Est GFR (MDRD) Af Amer 114 mL/min (>60) 02/13/19 05:20 Est GFR (MDRD) Non-Af 95 mL/min (>60) 02/13/19 05:20 BUN/Creatinine Ratio 17.3 RATIO (10-20) 02/13/19 05:20 Glucose 95 mg/dL (74-106) 02/13/19 05:20 Assessment/Plan: 1) Pain APAP, oxycodone for moderate pain, hydrocortisone suppositories. Continue to monitor daily pain scores, prn medication use. 2) DVT PPx Enoxaparin. Continue to monitor for bleeding/clot. 3) HLD Atorvastatin. Continue to monitor lipids. 4) GI Simethicone, ondansetron, famotidine. Continue to monitor s/s GI distress. * Recommend to check D level due to symptoms shes having along with her high dose of 50k units D weekly. 5) Sleep Melatonin. Continue to monitor for insomnia. 6) Nutrition B12, D, Ensure. Continue to monitor clinically. 7) Tremor Propranolol at HS. Continue to monitor BP/HR. Psychotropic Medications: None Unnecessary Medications: None Bowel Regimen: 8) Senna/s, PEG, prn bisacodyl. Continue to monitor prn medication use, for constipation/diarrhea. Date of Note:: 02/13/19 - Provider Comments Provider responsibility: Provider responsible to enter orders to implement recommendations <Hugo Gordon Chi - Last Filed: 02/13/19 19:39> Progress Note - Pharmacy Subjective: [] Objective: Allergies meperidine [From Demerol] Allergy (Verified 02/03/19 09:36) Unknown Sulfa (Sulfonamide Antibiotics) Allergy (Verified 02/03/19 09:36) Upset Stomach Current Medications Generic Name Dose Route Start Last Admin Trade Name Freq PRN Reason Stop Dose Admin Acetaminophen 1,000 mg 02/07/19 22:00 02/13/19 13:44 Tylenol PO 1,000 mg Q8 [facility] Administration Atorvastatin Calcium 20 mg 02/07/19 22:00 02/12/19 10:56 Lipitor PO Not Given QHS [facility] Bisacodyl 10 mg 02/07/19 15:24 Dulcolax PO DAILY PRN Constipation Calamine/Phenol 1 applic 02/08/19 12:55 Calmoseptine Ointment TOPICAL BID PRN PRN Hemorrhoids Protocol Cyanocobalamin 1,000 mcg 02/07/19 22:00 02/12/19 21:02 Vitamin B12 PO 1,000 mcg QHS [facility] Administration Enoxaparin Sodium 30 mg 02/13/19 06:00 02/13/19 05:23 Lovenox SC 30 mg DAILY@0600 [facility] Administration Ergocalciferol 50,000 unit 02/11/19 10:00 02/11/19 12:39 Vitamin D PO 50,000 unit Q7D [facility] Administration Famotidine 20 mg 02/08/19 06:00 02/13/19 05:22 Pepcid PO 20 mg DAILY [facility] Administration Hydrocortisone Acetate 25 mg 02/13/19 22:00 Anusol Hc RECTAL 1000,2200 [facility] Melatonin 1.5 mg 02/13/19 22:00 Melatonin PO QHS [facility] Nutritional Formula (Lactose Free) 120 ml 02/08/19 22:00 02/13/19 13:44 Ensure Clear PO Not Given 1000,1400,2200 [facility] Ondansetron HCl 8 mg 02/12/19 14:00 02/13/19 13:44 Zofran Odt PO 8 mg Q8 [facility] Administration Oxycodone HCl 5 mg 02/07/19 15:25 Oxyir PO Q4H PRN MODERATE PAIN (4-5/10) Polyethylene Glycol 17 gm 02/08/19 06:00 02/13/19 05:24 Miralax PO Not Given DAILY [facility] Propranolol HCl 20 mg 02/07/19 22:00 02/12/19 21:02 Inderal PO 20 mg QHS [facility] Administration Senna/Docusate Sodium 2 tablet 02/07/19 18:00 02/13/19 16:54 Senokot-S, Emily-Colace PO Not Given BID [facility] Simethicone 80 mg 02/13/19 13:00 02/13/19 16:54 Mylicon PO 80 mg PCHS [facility] Administration Tuberculin PPD 5 tu 02/15/19 10:00 Tubersol, Aplisol, Ppd ID 02/15/19 10:01 X1 ONE Problem List Heart murmur (Chronic) Vital Signs Temp Pulse Resp BP Pulse Ox 98.3 F 68 16 126/55 H 95 02/13/19 15:31 02/13/19 15:31 02/13/19 15:31 02/13/19 15:31 02/13/19 15:31 Oxygen Delivery Method Room Air Weight: 62.369 kg Body Mass Index (BMI) 25.9 Sodium 131 mmol/L (136-145) L 02/13/19 05:20 Potassium 3.3 mmol/L (3.5-5.1) L 02/13/19 05:20 Chloride 97 mmol/L (98-107) L 02/13/19 05:20 Carbon Dioxide 25.0 mmol/L (21.0-32.0) 02/13/19 05:20 Anion Gap 9 (5-15) 02/13/19 05:20 BUN 11 mg/dL (7-18) 02/13/19 05:20 Creatinine 0.64 mg/dL (0.55-1.02) 02/13/19 05:20 Est GFR (MDRD) Af Amer 114 mL/min (>60) 02/13/19 05:20 Est GFR (MDRD) Non-Af 95 mL/min (>60) 02/13/19 05:20 BUN/Creatinine Ratio 17.3 RATIO (10-20) 02/13/19 05:20 Glucose 95 mg/dL (74-106) 02/13/19 05:20 Assessment/Plan: Psychotropic Medications: Unnecessary Medications: Bowel Regimen: - Provider Comments Provider responsibility: Provider responsible to enter orders to implement recommendations Provider Comments to Recommendations by Pharmacy: Agree
--- NOTE | 2019-02-13 15:00 | PHA.CONS_ITS ---
<Dequan Myers D - Last Filed: 02/13/19 14:45> Progress Note - Pharmacy Subjective: TCU Admission Objective: Allergies meperidine [From Demerol] Allergy (Verified 02/03/19 09:36) Unknown Sulfa (Sulfonamide Antibiotics) Allergy (Verified 02/03/19 09:36) Upset Stomach Current Medications Generic Name Dose Route Start Last Admin Trade Name Freq PRN Reason Stop Dose Admin Acetaminophen 1,000 mg 02/07/19 22:00 02/13/19 13:44 Tylenol PO 1,000 mg Q8 [facility] Administration Atorvastatin Calcium 20 mg 02/07/19 22:00 02/12/19 10:56 Lipitor PO Not Given QHS [facility] Bisacodyl 10 mg 02/07/19 15:24 Dulcolax PO DAILY PRN Constipation Calamine/Phenol 1 applic 02/08/19 12:55 Calmoseptine Ointment TOPICAL BID PRN PRN Hemorrhoids Protocol Cyanocobalamin 1,000 mcg 02/07/19 22:00 02/12/19 21:02 Vitamin B12 PO 1,000 mcg QHS [facility] Administration Enoxaparin Sodium 30 mg 02/13/19 06:00 02/13/19 05:23 Lovenox SC 30 mg DAILY@0600 [facility] Administration Ergocalciferol 50,000 unit 02/11/19 10:00 02/11/19 12:39 Vitamin D PO 50,000 unit Q7D [facility] Administration Famotidine 20 mg 02/08/19 06:00 02/13/19 05:22 Pepcid PO 20 mg DAILY [facility] Administration Hydrocortisone Acetate 25 mg 02/13/19 18:00 Anusol Hc RECTAL BID [facility] Melatonin 1.5 mg 02/13/19 22:00 Melatonin PO QHS [facility] Nutritional Formula (Lactose Free) 120 ml 02/08/19 22:00 02/13/19 13:44 Ensure Clear PO Not Given 1000,1400,2200 [facility] Ondansetron HCl 8 mg 02/12/19 14:00 02/13/19 13:44 Zofran Odt PO 8 mg Q8 [facility] Administration Oxycodone HCl 5 mg 02/07/19 15:25 Oxyir PO Q4H PRN MODERATE PAIN (4-5/10) Polyethylene Glycol 17 gm 02/08/19 06:00 02/13/19 05:24 Miralax PO Not Given DAILY [facility] Propranolol HCl 20 mg 02/07/19 22:00 02/12/19 21:02 Inderal PO 20 mg QHS [facility] Administration Senna/Docusate Sodium 2 tablet 02/07/19 18:00 02/13/19 05:24 Senokot-S, Emily-Colace PO Not Given BID [facility] Simethicone 80 mg 02/13/19 13:00 02/13/19 13:43 Mylicon PO 80 mg PCHS [facility] Administration Tuberculin PPD 5 tu 02/15/19 10:00 Tubersol, Aplisol, Ppd ID 02/15/19 10:01 X1 ONE Problem List Heart murmur (Chronic) Vital Signs Temp Pulse Resp BP Pulse Ox 98.9 F 67 16 122/62 H 93 02/12/19 15:28 02/12/19 15:28 02/12/19 15:28 02/12/19 15:28 02/12/19 15:28 Oxygen Delivery Method Room Air Weight: 62.369 kg Body Mass Index (BMI) 25.9 Sodium 131 mmol/L (136-145) L 02/13/19 05:20 Potassium 3.3 mmol/L (3.5-5.1) L 02/13/19 05:20 Chloride 97 mmol/L (98-107) L 02/13/19 05:20 Carbon Dioxide 25.0 mmol/L (21.0-32.0) 02/13/19 05:20 Anion Gap 9 (5-15) 02/13/19 05:20 BUN 11 mg/dL (7-18) 02/13/19 05:20 Creatinine 0.64 mg/dL (0.55-1.02) 02/13/19 05:20 Est GFR (MDRD) Af Amer 114 mL/min (>60) 02/13/19 05:20 Est GFR (MDRD) Non-Af 95 mL/min (>60) 02/13/19 05:20 BUN/Creatinine Ratio 17.3 RATIO (10-20) 02/13/19 05:20 Glucose 95 mg/dL (74-106) 02/13/19 05:20 Assessment/Plan: 1) Pain APAP, oxycodone for moderate pain, hydrocortisone suppositories. Continue to monitor daily pain scores, prn medication use. 2) DVT PPx Enoxaparin. Continue to monitor for bleeding/clot. 3) HLD Atorvastatin. Continue to monitor lipids. 4) GI Simethicone, ondansetron, famotidine. Continue to monitor s/s GI distress. * Recommend to check D level due to symptoms shes having along with her high dose of 50k units D weekly. 5) Sleep Melatonin. Continue to monitor for insomnia. 6) Nutrition B12, D, Ensure. Continue to monitor clinically. 7) Tremor Propranolol at HS. Continue to monitor BP/HR. Psychotropic Medications: None Unnecessary Medications: None Bowel Regimen: 8) Senna/s, PEG, prn bisacodyl. Continue to monitor prn medication use, for constipation/diarrhea. Date of Note:: 02/13/19 - Provider Comments Provider responsibility: Provider responsible to enter orders to implement recommendations <Hugo Gordon Chi - Last Filed: 02/13/19 19:39> Progress Note - Pharmacy Subjective: [] Objective: Allergies meperidine [From Demerol] Allergy (Verified 02/03/19 09:36) Unknown Sulfa (Sulfonamide Antibiotics) Allergy (Verified 02/03/19 09:36) Upset Stomach Current Medications Generic Name Dose Route Start Last Admin Trade Name Freq PRN Reason Stop Dose Admin Acetaminophen 1,000 mg 02/07/19 22:00 02/13/19 13:44 Tylenol PO 1,000 mg Q8 [facility] Administration Atorvastatin Calcium 20 mg 02/07/19 22:00 02/12/19 10:56 Lipitor PO Not Given QHS [facility] Bisacodyl 10 mg 02/07/19 15:24 Dulcolax PO DAILY PRN Constipation Calamine/Phenol 1 applic 02/08/19 12:55 Calmoseptine Ointment TOPICAL BID PRN PRN Hemorrhoids Protocol Cyanocobalamin 1,000 mcg 02/07/19 22:00 02/12/19 21:02 Vitamin B12 PO 1,000 mcg QHS [facility] Administration Enoxaparin Sodium 30 mg 02/13/19 06:00 02/13/19 05:23 Lovenox SC 30 mg DAILY@0600 [facility] Administration Ergocalciferol 50,000 unit 02/11/19 10:00 02/11/19 12:39 Vitamin D PO 50,000 unit Q7D [facility] Administration Famotidine 20 mg 02/08/19 06:00 02/13/19 05:22 Pepcid PO 20 mg DAILY [facility] Administration Hydrocortisone Acetate 25 mg 02/13/19 22:00 Anusol Hc RECTAL 1000,2200 [facility] Melatonin 1.5 mg 02/13/19 22:00 Melatonin PO QHS [facility] Nutritional Formula (Lactose Free) 120 ml 02/08/19 22:00 02/13/19 13:44 Ensure Clear PO Not Given 1000,1400,2200 [facility] Ondansetron HCl 8 mg 02/12/19 14:00 02/13/19 13:44 Zofran Odt PO 8 mg Q8 [facility] Administration Oxycodone HCl 5 mg 02/07/19 15:25 Oxyir PO Q4H PRN MODERATE PAIN (4-5/10) Polyethylene Glycol 17 gm 02/08/19 06:00 02/13/19 05:24 Miralax PO Not Given DAILY [facility] Propranolol HCl 20 mg 02/07/19 22:00 02/12/19 21:02 Inderal PO 20 mg QHS [facility] Administration Senna/Docusate Sodium 2 tablet 02/07/19 18:00 02/13/19 16:54 Senokot-S, Emily-Colace PO Not Given BID [facility] Simethicone 80 mg 02/13/19 13:00 02/13/19 16:54 Mylicon PO 80 mg PCHS [facility] Administration Tuberculin PPD 5 tu 02/15/19 10:00 Tubersol, Aplisol, Ppd ID 02/15/19 10:01 X1 ONE Problem List Heart murmur (Chronic) Vital Signs Temp Pulse Resp BP Pulse Ox 98.3 F 68 16 126/55 H 95 02/13/19 15:31 02/13/19 15:31 02/13/19 15:31 02/13/19 15:31 02/13/19 15:31 Oxygen Delivery Method Room Air Weight: 62.369 kg Body Mass Index (BMI) 25.9 Sodium 131 mmol/L (136-145) L 02/13/19 05:20 Potassium 3.3 mmol/L (3.5-5.1) L 02/13/19 05:20 Chloride 97 mmol/L (98-107) L 02/13/19 05:20 Carbon Dioxide 25.0 mmol/L (21.0-32.0) 02/13/19 05:20 Anion Gap 9 (5-15) 02/13/19 05:20 BUN 11 mg/dL (7-18) 02/13/19 05:20 Creatinine 0.64 mg/dL (0.55-1.02) 02/13/19 05:20 Est GFR (MDRD) Af Amer 114 mL/min (>60) 02/13/19 05:20 Est GFR (MDRD) Non-Af 95 mL/min (>60) 02/13/19 05:20 BUN/Creatinine Ratio 17.3 RATIO (10-20) 02/13/19 05:20 Glucose 95 mg/dL (74-106) 02/13/19 05:20 Assessment/Plan: Psychotropic Medications: Unnecessary Medications: Bowel Regimen: - Provider Comments Provider responsibility: Provider responsible to enter orders to implement recommendations Provider Comments to Recommendations by Pharmacy: Agree
[2019-02-13 15:31] VITALS: BP 126/55; PULSE 68; RESP 16; TEMP 36.8; O2SAT 95
--- NOTE | 2019-02-13 16:47 | CHAPLAIN ---
Type of Pastoral Visit _x__ Initial Visit ___ Follow-up Visit ___ On-call Visit ___ General Patient Visit ___ Spiritual Assessment ___ Family Conference ___ Bereavement ___ Rapid Response ___ Code Blue ___ Other (describe below) Pastoral Care Referral From _x__ Patient ___ Family ___ Nurse ___ Physician ___ Bakeshop Cleaner ___ Jewelry Mechanic ___ Other (describe below) Sacrament/Intervention _x__ Active listening ___ Anointing ___ Synagogue ___ Bereavement ___ Communion _x__ Brii exploration ___ _x__ Life review _x__ Prayer ___ Reconciliation ___ Sacrament of Sick ___ Supportive presence ___ Wedding ___ Other (describe below) Pastoral Comments long talk on many subjects; patient welcomes further visits from
[2019-02-13] MEDS: Cyanocobalamin 500 MCG Tablet 1000 MCG PO (21:18)
[2019-02-13] MEDS: Propranolol 10 MG Tablet 20 MG PO (21:18)
[2019-02-13] MEDS: MELATONIN 3 MG TABLET 1.5 MG PO (21:18)
[2019-02-13] MEDS: Atorvastatin Calcium 20 MG Tablet PO (21:18)
[2019-02-14] MEDS: Acetaminophen 500 MG Tablet 1000 MG PO ×3 (05:03→20:53)
[2019-02-14] MEDS: Ondansetron ODT 4 MG Tablet 8 MG PO ×3 (05:03→20:53)
[2019-02-14] MEDS: Famotidine 20 MG Tablet PO (05:04)
[2019-02-14] MEDS: Enoxaparin 30 MG/0.3 ML Syringe SC (05:04)
[2019-02-14 08:28] LABS: Vitamin D,25 Hydroxy 87.7 ng/mL (29.95-100.01)
[2019-02-14] MEDS: Hydrocortisone 25 MG Suppository RECTAL ×2 (10:29→20:51)
[2019-02-14] MEDS: Ensure Clear 120 ML Liquid PO ×2 (10:30→12:50)
[2019-02-14 15:10] VITALS: BP 115/59; PULSE 70; RESP 14; TEMP 36.8; O2SAT 99
--- NOTE | 2019-02-14 15:48 | NURSING ---
Dr. Gordon reviewed labs, order to recheck BMP in AM.
[2019-02-14] MEDS: Atorvastatin Calcium 20 MG Tablet PO (20:52)
[2019-02-14] MEDS: Propranolol 10 MG Tablet 20 MG PO (20:52)
[2019-02-14] MEDS: MELATONIN 3 MG TABLET 1.5 MG PO (20:52)
[2019-02-14] MEDS: Cyanocobalamin 500 MCG Tablet 1000 MCG PO (20:53)
[2019-02-15] MEDS: Enoxaparin 30 MG/0.3 ML Syringe SC (05:23)
[2019-02-15] MEDS: Acetaminophen 500 MG Tablet 1000 MG PO ×3 (05:24→21:15)
[2019-02-15] MEDS: Ondansetron ODT 4 MG Tablet 8 MG PO ×3 (05:24→21:16)
[2019-02-15] MEDS: Famotidine 20 MG Tablet PO (05:27)
[2019-02-15 06:57] LABS: Absolute Lymphocyte Count 1.16 X10^3/ul (0.83-4.51); Basophil# 0.03 X10^3/uL; Basophil% 0.6 % (0-1); Eosinophil# 0.05 X10^3/uL; Hematocrit 34.3 % (37-47); Hemoglobin 11.4 g/dl (12.0-15.0); Lymphocyte # 1.16 X10^3/ul (4.0); Lymphocyte % 23.7 % (19-41); Mean Corp Hgb Conc 33.2 g/gl (32-36); Mean Corpuscular Hgb 32.3 pg (27.0-32.0); Mean Corpuscular Volume 97.2 fL (81-99); Mean Platelet Vol. 9.6 fl (6.2-12.0); Monocyte# 0.66 X10^3/uL; Monocyte% 13.5 % (0-10); Neutrophil # 2.98 X10^3/uL (2.7-7.7); POSITIVE COUNT NO; POSITIVE DIFFERENTIAL NO; POSITIVE MORPHOLOGY NO; Platelet Count 267 K/mm3 (150-450); RBC Distribution Width CV 14.1 % (11.6-14.6); RBC Distribution Width SD 48.9 fl (35.1-43.9); Red Blood Count 3.53 M/mm3 (4.2-5.4); White Blood Count 4.9 K/mm3 (4.4-11.0)
[2019-02-15 07:24] LABS: Anion Gap 8 (5-15); BUN 9 mg/dL (7-18); BUN/Creat Ratio 12.8 RATIO (10-20); Calcium,Total 8.6 mg/dL (8.5-10.1); Chloride 105 mmol/L (98-107); EST Glomerular Filtration Rate 84 mL/min (>60); Est Glom Filt Rate - Afr Amer 102 mL/min (>60); Estimated Creatinine Clearance 33.12 ml/min; Glucose 97 mg/dL (74-106); Potassium 3.9 mmol/L (3.5-5.1); Sodium Level 137 mmol/L (136-145)
[2019-02-15] MEDS: Ensure Clear 120 ML Liquid PO ×3 (10:49→21:21)
[2019-02-15] MEDS: Tuberculin,Purif.prot.deriv. 50 TU/ML Vial 5 ML ID (11:02)
[2019-02-15] MEDS: Hydrocortisone 25 MG Suppository RECTAL ×2 (11:11→21:21)
[2019-02-15 15:45] VITALS: BP 120/57; PULSE 76; RESP 18; TEMP 37; O2SAT 96
[2019-02-15] MEDS: Senna/Docusate Sodium 1 Tablet 2 TABLET PO (17:26)
[2019-02-15] MEDS: Cyanocobalamin 500 MCG Tablet 1000 MCG PO (21:15)
[2019-02-15] MEDS: MELATONIN 3 MG TABLET 1.5 MG PO (21:16)
[2019-02-15] MEDS: Propranolol 10 MG Tablet 20 MG PO (21:16)
[2019-02-15] MEDS: Atorvastatin Calcium 20 MG Tablet PO (21:16)
[2019-02-16] MEDS: Enoxaparin 30 MG/0.3 ML Syringe SC (05:40)
[2019-02-16] MEDS: Acetaminophen 500 MG Tablet 1000 MG PO ×3 (05:41→20:47)
[2019-02-16] MEDS: Famotidine 20 MG Tablet PO (05:41)
[2019-02-16] MEDS: Senna/Docusate Sodium 1 Tablet 2 TABLET PO (05:41)
[2019-02-16] MEDS: Ondansetron ODT 4 MG Tablet 8 MG PO ×3 (05:41→20:48)
[2019-02-16] MEDS: Hydrocortisone 25 MG Suppository RECTAL ×2 (09:46→20:54)
[2019-02-16] MEDS: Ensure Clear 120 ML Liquid PO (09:48)
[2019-02-16 15:23] VITALS: BP 121/57; PULSE 73; RESP 18; TEMP 36.8; O2SAT 98
[2019-02-16] MEDS: MELATONIN 3 MG TABLET 1.5 MG PO (20:48)
[2019-02-16] MEDS: Cyanocobalamin 500 MCG Tablet 1000 MCG PO (20:48)
[2019-02-16] MEDS: Propranolol 10 MG Tablet 20 MG PO (20:49)
[2019-02-16] MEDS: Atorvastatin Calcium 20 MG Tablet PO (20:49)
[2019-02-17] MEDS: Famotidine 20 MG Tablet PO (05:30)
[2019-02-17] MEDS: Enoxaparin 30 MG/0.3 ML Syringe SC (05:30)
[2019-02-17] MEDS: Acetaminophen 500 MG Tablet 1000 MG PO ×3 (05:31→21:15)
[2019-02-17] MEDS: Ondansetron ODT 4 MG Tablet 8 MG PO ×3 (05:31→21:12)
--- NOTE | 2019-02-17 10:13 | RAD_ITS ---
STUDY: X-RAY - LEFT ANKLE REASON FOR EXAM: Postop 02/04/2019. TECHNIQUE: 3 view(s) of the ankle. COMPARISON: Radiographs 02/03/2019 and intraoperative films 02/04/2018. FINDINGS: There is orthopedic plate and screws transfixing a distal fibular fracture in anatomic alignment and position. There are 2 orthopedic screws transfixing a medial malleolar fracture in anatomical alignment and position. Normal visualized talus and calcaneus. The visualized subtalar, talonavicular, calcaneocuboid and tarsal articulations are normal. There is an overlying cast. RAD/Ankle min 3 Views IMPRESSION: No interval change of operative reduction internal fixation of distal fibular and medial malleolar fractures. Electronically Signed: Chang Cruz MD at 14:09 EDT Tel , Service support ,
[2019-02-17] MEDS: Ensure Clear 120 ML Liquid PO (11:19)
[2019-02-17] MEDS: Hydrocortisone 25 MG Suppository RECTAL ×2 (11:36→22:07)
[2019-02-17 14:00] VITALS: PULSE 69; RESP 16; O2SAT 97
--- NOTE | 2019-02-17 14:07 | CASEMGMT ---
Social Work SW spoke with pt and with dgt Tessie. D/C set for Sunday02/19/19. Pt will be returning to her home where she lives in an in-law suite at daughter Tessie's home. Pt is alone during the day. Pt is agreeable to home health services PT/OT and dgt preferring [facility]. Pt will need wheelchair with elevating leg rests and a wheeled walker. Referral made to Carlie at [facility] and they are able to accept pt. Referral made to [facility] for needed DME. Will fax orders when obtained. Plan: D/C 02/19 with [facility] PT/OT and walker and wheelchair CHRISTOPHER Swann
[2019-02-17 16:00] VITALS: BP 127/68; PULSE 69; RESP 16; TEMP 36.6; O2SAT 94
[2019-02-17] MEDS: Senna/Docusate Sodium 1 Tablet 2 TABLET PO (17:44)
--- NOTE | 2019-02-17 19:50 | DCINST_ITS ---
- Discharge Diagnoses Current Active Problems: Current Active and Chronic Problems Heart murmur (Chronic) You will use the following diet at home:: No restrictions, Regular Your food should be the consistency of: Regular Your liquids should be the consistency of: Regular/Thin Discharge Activity: Return to Normal Activity, May Shower, Use Walker Weight Bearing Status: No weight bearing - Left lower extremity. Call your doctor if you observe: Inability to urinate, Inability to have a bowel movement, Shortness of breath, Chest pain, Uncontrolled pain Allergies/Adverse Reactions: Allergies meperidine [From Demerol] Allergy (Verified 02/03/19 09:36) Unknown Sulfa (Sulfonamide Antibiotics) Allergy (Verified 02/03/19 09:36) Upset Stomach Medications to take at Discharge Atorvastatin Calcium [Lipitor] 20 mg PO QHS 02/03/19 Cyanocobalamin (Vitamin B-12) [Vitamin B-12] 1,000 mcg PO QHS 02/03/19 Ergocalciferol (Vitamin D2) [Vitamin D2] 50,000 unit PO Q7D 02/03/19 Propranolol HCl 20 mg PO QHS 02/03/19 Acetaminophen [Tylenol] 1,000 mg PO Q8 02/07/19 Melatonin 6 mg PO QHS 02/07/19 Menthol/Lanolin/Calamine/Znox [Calmoseptine Ointment] 1 applic TOPICAL BID PRN PRN tube 02/17/19 Ondansetron [Zofran Odt] 8 mg PO Q8 #30 tablet 02/17/19 SimETHICONE [Mylicon] 80 mg PO PCHS #30 tablet 02/17/19 The following prescriptions were given: Ondansetron [Zofran Odt] 8 mg PO Q8 #30 tablet SimETHICONE [Mylicon] 80 mg PO PCHS #30 tablet Primary Care Physician: Ayesha Elliott MD [STAFF PHYSICIAN] - Please follow up with your Primary Care Physician in: 1 week. Test Results: Test results from this visit will be discussed in further detail at your follow- up appointment, if applicable. Please Follow Up With: DEXA bone density scan When: after discharge Please Follow Up With: Dr Ross When: 2 weeks. Please Follow Up With: Dr Elliott - after discharge Please Follow Up With: [facility] PT and OT When: They will call you to set up a time to come to your house Proposed Discharge Date: 02/19/19
--- NOTE | 2019-02-17 19:50 | PCM.DC.SUM ---
Discharge Date and Diagnosis Date of Admission: 02/07/19 Date of Discharge: 02/19/19 - Secondary Discharge Diagnosis Chronic Problems GERD (gastroesophageal reflux disease) (Chronic) HLD (hyperlipidemia) (Chronic) Benign essential tremor (Chronic) Vitamin D deficiency (Chronic) Hiatal hernia (Chronic) Colon polyps (Chronic) Heart murmur (Chronic) Hospital Course and Treatment Imaging Results: 02/07/19 14:21 Diet: Regular Diet Clinical Impression(s) from Imaging Studies Ankle X-Ray 02/17/19 10:13 IMPRESSION: No interval change of operative reduction internal fixation of distal fibular and medial malleolar fractures. Electronically Signed: Chang Cruz MD at 14:09 EDT Tel , Service support , Operations: None, - - ORIF left ankle fracture on 02/04/[address] Ross Procedures: None Summary of Care Provided: The patient is a 83 year old Female with below past medical history hospitalized for left bimalleolar fracture, underwent open reduction internal fixation 02/04/[address] Ross, complicated by severe osteoporosis, E. Coli UTI, admitted to TCU with debility, here for rehabilitation, strengthening, prior to discharge home alone. Discharge home with daughter, and Home Health Services for PT/OT. - Physical Exam Vital Signs Temp Pulse Resp BP Pulse Ox 97.8 F 69 16 127/68 H 94 02/17/19 16:00 02/17/19 16:00 02/17/19 16:00 02/17/19 16:00 02/17/19 16:00 Oxygen Delivery Method Room Air Weight: 62.369 kg Body Mass Index (BMI) 25.9 Intake and Output for Last 24 Hours 02/15/19 02/16/19 02/17/19 23:59 23:59 23:59 Intake Total 540 / 540 600 / 600 780 / 780 Balance 540 / 540 600 / 600 780 / 780 Discharge Diet: No Restrictions Discharge Activity: Return to Normal Activity, May Shower, Use Walker Weight Bearing Status: No weight bearing - Left lower extremity. Call your doctor if you observe: Inability to urinate, Inability to have a bowel movement, Shortness of breath, Chest pain, Uncontrolled pain Home Medications: Medications to take at Discharge Atorvastatin Calcium [Lipitor] 20 mg PO QHS 02/03/19 Cyanocobalamin (Vitamin B-12) [Vitamin B-12] 1,000 mcg PO QHS 02/03/19 Ergocalciferol (Vitamin D2) [Vitamin D2] 50,000 unit PO Q7D 02/03/19 Propranolol HCl 20 mg PO QHS 02/03/19 Acetaminophen [Tylenol] 1,000 mg PO Q8 02/07/19 Melatonin 6 mg PO QHS 02/07/19 Menthol/Lanolin/Calamine/Znox [Calmoseptine Ointment] 1 applic TOPICAL BID PRN PRN tube 02/17/19 Ondansetron [Zofran Odt] 8 mg PO Q8 #30 tablet 02/17/19 SimETHICONE [Mylicon] 80 mg PO PCHS #30 tablet 02/17/19 Following Prescrptions Were Given to Patient: Ondansetron [Zofran Odt] 8 mg PO Q8 #30 tablet SimETHICONE [Mylicon] 80 mg PO PCHS #30 tablet Primary Care Physician: Ayesha Elliott MD [STAFF PHYSICIAN] - Please follow up with your Primary Care Physician in: 1 week. Please Follow Up With: DEXA bone density scan When: after discharge Please Follow Up With: Dr Ross When: 2 weeks. Please Follow Up With: Dr Elliott - after discharge Please Follow Up With: [facility] PT and OT When: They will call you to set up a time to come to your house Disposition: Home with Home Health Minutes spent on discharge:: 35 Patient Condition:: Stable Medical Necessity - Tobacco Use Smoking Status: Never smoker Meaningful Use Info Meaningful Use Diagnoses (Choose all that apply): None applicable
--- NOTE | 2019-02-17 19:51 | PCM.PN.HH ---
Home Health Note - Plan Overview of reason of hospitalization: The patient is a 83 year old Female with below past medical history hospitalized for left bimalleolar fracture, underwent open reduction internal fixation 02/04/[address] Ross, complicated by severe osteoporosis, E. Coli UTI, admitted to TCU with debility, here for rehabilitation, strengthening, prior to discharge home alone. Discharge home with daughter, and Home Health Services for PT/OT. Problems: Patient was seen for Heart murmur (Chronic) Complete List of Medical Problems Bimalleolar fracture of left ankle (Acute) GERD (gastroesophageal reflux disease) (Chronic) HLD (hyperlipidemia) (Chronic) Benign essential tremor (Chronic) Vitamin D deficiency (Chronic) Hiatal hernia (Chronic) Colon polyps (Chronic) Increased PTH level (Acute) UTI (urinary tract infection) (Acute) Heart murmur (Chronic) - Requirements and Reasons Disciplines Needed/Ordered: Physical Therapy Reason for Disciplines: Gait Training, Stair Training, Fall Prevention, Home Safety/Equipment Instruction, Balance and/or Posture Training, Transfer Training Related To: Change in Medical Treatment Plan, Physical Impairments, Unsteady Gait/Balance, Fall Risk Patient is unable to leave the home: Without Aid of Supportive Devices (crutches, cane, wheelchair, walker), Without the assistance of another person Medically Contraindicated related to: Weight Bearing Status - Additional Disciplines Additional Disciplines Needed/Ordered: Occupational Therapy
[2019-02-17] MEDS: MELATONIN 3 MG TABLET 1.5 MG PO (21:15)
[2019-02-17] MEDS: Propranolol 10 MG Tablet 20 MG PO (21:15)
[2019-02-17] MEDS: Atorvastatin Calcium 20 MG Tablet PO (21:15)
[2019-02-17] MEDS: Cyanocobalamin 500 MCG Tablet 1000 MCG PO (21:15)
[2019-02-18] MEDS: Ondansetron ODT 4 MG Tablet 8 MG PO ×2 (06:12→22:18)
[2019-02-18] MEDS: Acetaminophen 500 MG Tablet 1000 MG PO ×3 (06:19→22:19)
[2019-02-18] MEDS: Famotidine 20 MG Tablet PO (06:19)
[2019-02-18] MEDS: Enoxaparin 30 MG/0.3 ML Syringe SC (06:19)
--- NOTE | 2019-02-18 09:43 | CASEMGMT ---
Social Work Orders for DME faxed to [facility] [place]. Equipment to be delivered to pt room prior to discharge. Phone call to Tessie and updated on this. D/C planned for tomorrow 02/19. CHRISTOPHER Swann
[2019-02-18] MEDS: Hydrocortisone 25 MG Suppository RECTAL ×2 (11:04→22:20)
[2019-02-18] MEDS: Ensure Clear 120 ML Liquid PO ×2 (11:06→14:34)
[2019-02-18 16:00] VITALS: BP 130/55; PULSE 70; RESP 18; TEMP 36.4; O2SAT 97
[2019-02-18 20:30] VITALS: O2SAT 98
[2019-02-18] MEDS: Cyanocobalamin 500 MCG Tablet 1000 MCG PO (22:19)
[2019-02-18] MEDS: Propranolol 10 MG Tablet 20 MG PO (22:19)
[2019-02-18] MEDS: MELATONIN 3 MG TABLET 1.5 MG PO (22:19)
[2019-02-18] MEDS: Atorvastatin Calcium 20 MG Tablet PO (22:19)
[2019-02-19] MEDS: Ondansetron ODT 4 MG Tablet 8 MG PO (06:43)
[2019-02-19] MEDS: Famotidine 20 MG Tablet PO (06:44)
[2019-02-19] MEDS: Enoxaparin 30 MG/0.3 ML Syringe SC (06:44)
[2019-02-19] MEDS: Acetaminophen 500 MG Tablet 1000 MG PO (06:44)
--- NOTE | 2019-02-19 07:06 | MDS.RN ---
Information for the mds was obtained from review of the clinical record, interview of resident, staff, and direct observation of resident's care.
[2019-02-19] MEDS: Hydrocortisone 25 MG Suppository RECTAL (09:24)
[2019-02-19 10:31] LABS: Cholesterol 142 mg/dL (200); High Density Lipoprotein 47 mg/dL; Triglycerides 123 mg/dL; Very Low Density Lipoprotein 25 mg/dL (5-40)
[2019-02-19 11:28] VITALS: BP 134/47; PULSE 62; RESP 18; TEMP 36.6
== END 2019-02-19 11:00 | disposition home health service (06) | DRG 560 ==
PROVIDERS: Internal Medicine; Admitting Provider Family Medicine Geriatric Medicine; Referring Provider Family Medicine Geriatric Medicine; Visit Provider Family Medicine Geriatric Medicine
DX: S82.842D Displaced bimalleolar fracture of left lower leg, subsequent encounter for closed fracture with routine healing (principal); N39.0 Urinary tract infection, site not specified; W19.XXXD Unspecified fall, subsequent encounter; K21.9 Gastro-esophageal reflux disease without esophagitis; E78.5 Hyperlipidemia, unspecified; G25.0 Essential tremor; E55.9 Vitamin D deficiency, unspecified; B96.20 Unspecified Escherichia coli [E. coli] as the cause of diseases classified elsewhere; Z23 Encounter for immunization; K44.9 Diaphragmatic hernia without obstruction or gangrene
CPT/HCPCS: 36415; 73610; 80048; 80053; 80061; 82306; 85025; 90732; 97110; 97116; 97163; 97166; 97530; 97535; 97802; G0009

== ENCOUNTER → 2019-03-26 11:27 | Outpatient (CLI) | payer MEDICARE, BC, SELFPAY ==
--- NOTE | 2019-03-26 11:29 | RAD_ITS ---
STUDY: X-RAY - LEFT ANKLE REASON FOR EXAM: Female, 83 years old. Ankle pain TECHNIQUE: 3 view(s) of the ankle. COMPARISON: None. FINDINGS: There is orthopedic plate and screws transfixing a distal fibular fracture in anatomic alignment and position. There are 2 orthopedic screws transfixing a medial malleolar fracture in anatomical alignment and position. Normal visualized talus and calcaneus. The visualized subtalar, talonavicular, calcaneocuboid and tarsal articulations are normal. There is an overlying cast. RAD/Ankle min 3 Views IMPRESSION: No interval change of operative reduction internal fixation of distal fibular and medial malleolar fractures. Electronically Signed: Morena Gonzalez, at 7:55 EDT Tel , Service support ,
== END ==
PROVIDERS: Referring Provider Orthopaedic Surgery; Visit Provider Orthopaedic Surgery
DX: S82.842A Displaced bimalleolar fracture of left lower leg, initial encounter for closed fracture (principal); X58.XXXA Exposure to other specified factors, initial encounter; Y93.9 Activity, unspecified; Y92.9 Unspecified place or not applicable; Y99.9 Unspecified external cause status
CPT/HCPCS: 73610

== ENCOUNTER → 2019-04-28 08:44 | Outpatient (CLI) | payer MEDICARE, BC, SELFPAY ==
--- NOTE | 2019-04-28 08:46 | RAD_ITS ---
STUDY: X-RAY - LEFT ANKLE REASON FOR EXAM: Female, 83 years old. Post surgical follow-up after ORIF of ankle 2 months ago. TECHNIQUE: 3 view(s) of the ankle. COMPARISON: March 26, 2019 FINDINGS: Generalized osteopenia likely from disuse. Stable medial malleolar cancellus screw placement and lateral malleolar plate and screw placement. No complications identified. Normal tibiotalar articulation and ankle mortise. Normal visualized talus and calcaneus. The visualized subtalar, talonavicular, calcaneocuboid and tarsal articulations are normal. The soft tissue structures are unremarkable. RAD/Ankle min 3 Views IMPRESSION: Stable ORIF changes. No complications. Electronically Signed: Mejia Huitron MD at 16:52 EDT , Service support ,
== END ==
PROVIDERS: Referring Provider Orthopaedic Surgery; Visit Provider Orthopaedic Surgery
DX: S82.842A Displaced bimalleolar fracture of left lower leg, initial encounter for closed fracture (principal)
CPT/HCPCS: 73610

== ENCOUNTER 2019-10-16 19:02 | Inpatient (IN) | payer MEDICARE, BC, SELFPAY ==
[2019-09-03 09:28] VITALS: BMI 25.9
[2019-10-16 19:02] VITALS: BP 159/72; PULSE 66; RESP 18; TEMP 36.4; O2SAT 98; BMI 26.2
[2019-10-16] MEDS: Ondansetron 4 MG/2 ML Vial IV ×2 (19:30→21:44)
--- NOTE | 2019-10-16 19:33 | EKG12_ITS ---
Test Reason : DYSRYTHMIA Blood Pressure : / mmHG Vent. Rate : 061 BPM Atrial Rate : 061 BPM P-R Int : 154 ms QRS Dur : 074 ms QT Int : 394 ms P-R-T Axes : 012 021 -06 degrees QTc Int : 396 ms Normal sinus rhythm Normal ECG Confirmed by LATOYA HAMILTON, TJ ([id number]), editor magazine KARINE HUGHES ([id number]) on 10/20/2019 11:35:00 AM Referred By: ISAEL Confirmed By:TJ KLEIN MD
--- NOTE | 2019-10-16 19:38 | RAD_ITS ---
STUDY: X-RAY CHEST REASON FOR EXAM: Female, 83 years old. Nausea and vomiting TECHNIQUE: Single frontal view of the chest. COMPARISON: February 03, 2019. FINDINGS: Large hiatal hernia containing air-fluid level. Cardiac silhouette unremarkable. Pulmonary vascularity unremarkable. Aorta atherosclerotic. No focal airspace opacities. No pleural effusions. Upper abdomen unremarkable. Osseous structures intact. No pneumothorax. RAD/Chest 1 View (Portable) IMPRESSION: Large hiatal hernia. Electronically Signed: Baudilio Williamson, at 20:05 EST Tel , Service support ,
--- NOTE | 2019-10-16 19:40 | ED.DCSUM_ITS ---
- ER Visit Summary Date of Service: 10/16/19 Chief Complaint: Abdominal pain, vomiting History of Present Illness: The patient is a 83 F presenting with abdominal pain and vomiting. This started this evening. Patient states she had vomiting and diarrhea last week. Her symptoms resolved on Sunday and she was starting to feel better. Today this evening she started having vomiting again. She complains of left lower quadrant abdominal pain and right-sided chest pain associated with this. She denies shortness of breath. Denies diarrhea or constipation. Denies urinary complaints. Denies fever. Physical Examination: Vitals are stable. Patient is afebrile. Alert no acute distress. HEENT exam is unremarkable. Neck is supple. Lungs are clear and equal bilaterally. Right lateral chest wall tenderness with no crepitus Heart is regular rate and rhythm. Abdomen is soft epigastric and left lower quadrant tenderness with no guarding or rebound Extremities are unremarkable. Skin is warm and dry. No focal neurologic deficit. Remainder of exam is unremarkable. Emergency Department Course and Treatment: Patient was given IV fluids, Zofran, morphine. EKG is sinus rhythm rate of 61 with no acute ischemic changes. CBC, chemistries unremarkable other than glucose 134. AST 14. Lipase 446. Urinalysis shows 0-5 white blood cells, 0-5 red blood cells. Troponin is negative. Lactic acid 2.5. Chest x-ray shows hiatal hernia. CTA chest shows cholelithiasis and choledocholithiasis. Large hiatal hernia. Hepatic hypodensities, too small to characterize. Old healed granulomatous disease. She continues to have nausea and was given Phenergan IV. She was given Zosyn IV. Discussed with Dr. Beasley. Patient will be admitted. Disposition: Admission Impression: Cholelithiasis, choledocholithiasis This note was generated with [employer] dictation software. It may contain incorrect words, spelling, and punctuation that were not noted in review of the chart prior to signing ED Disposition - Plan for ED Patient: Referrals: [facility],Out of [Primary Care Provider] -
[2019-10-16 20:04] LABS: Absolute Lymphocyte Count 1.46 X10^3/uL (0.83-4.51); Absolute Neutrophil Count 5.9 X10^3/uL (2.0-7.7); Basophil# 0.04 X10^3/uL; Basophil% 0.5 % (0-1); Eosinophil# 0.08 X10^3/uL; Hematocrit 39.8 % (37-47); Hemoglobin 13.2 g/dL (12.0-15.0); Lymphocyte # 1.46 X10^3/ul (4.0); Lymphocyte % 17.7 % (19-41); Mean Corp Hgb Conc 33.2 g/dL (32-36); Mean Corpuscular Hgb 32.4 pg (27.0-32.0); Mean Corpuscular Volume 97.5 fL (81-99); Mean Platelet Vol. 10.5 fl (6.2-12.0); Monocyte# 0.72 X10^3/uL; Monocyte% 8.7 % (0-10); NRBC Flagged by Analyzer 0 % (0-5); Neutrophil # 5.91 X10^3/uL (2.7-7.7); Neutrophil % 71.4 % (47-70); Platelet Count 248 K/mm3 (150-450); RBC Distribution Width CV 13.2 % (11.6-14.6); RBC Distribution Width SD 47.6 fl (35.1-43.9); Red Blood Count 4.08 M/mm3 (4.2-5.4); White Blood Count 8.3 K/mm3 (4.4-11.0)
[2019-10-16] MEDS: 0.9% Normal Saline 1,000 ML 1000 ML IV (20:08)
[2019-10-16] MEDS: proMETHazine 25 MG/ML Syringe 6.25 MG IV ×2 (20:08→22:46)
[2019-10-16 20:19] LABS: AST(SGOT) 14 U/L (15-37); Alanine Aminotransfer ALT/SGPT 27 U/L (13-56); Albumin, Serum 3.5 g/dL (3.2-5.0); Alkaline Phosphatase 94 U/L (45-117); Anion Gap 6 (5-15); BUN 11 mg/dL (7-18); BUN/Creat Ratio 14.3 RATIO (10-20); Calcium,Total 8.9 mg/dL (8.5-10.1); Chloride 109 mmol/L (98-107); Creatinine, Serum 0.77 mg/dL (0.55-1.02); EST Glomerular Filtration Rate 76 mL/min (>60); Est Glom Filt Rate - Afr Amer 92 mL/min (>60); Globulin 3.4 g/dL (2.2-4.2); Glucose 134 mg/dL (74-106); Lipase 446 U/L (73-393); Protein, Total 6.9 g/dL (6.4-8.2); Sodium Level 144 mmol/L (136-145)
[2019-10-16 20:40] LABS: Mucous, Urine 0 SEEN /hpf (<or=2+)
[2019-10-16 20:49] LABS: Color, Urine Yellow (Yellow); Glucose, Dipstick Normal (Normal); Ketone-Dipstick Negative (Negative); Leukocyte Esterase-Dipstick 25 /ul (Negative); Nitrite-Dipstick Positive (Negative); Occult Blood-Urine 50 /ul (Negative); Protein-Dipstick Negative (Negative); Specific Gravity, Urine 1.015 (1.002-1.030); Urine Bilirubin Dipstick Negative (Negative); Urine Clarity Sl. Cloudy (Clear); Urine Urobilinogen Normal (Normal)
[2019-10-16 20:51] LABS: Bacteria 2+ /hpf (None Seen); Red Blood Cells-Urine 0-5 SEEN /hpf (0-5); Squamous Epithelial Cells - UA 0-5 SEEN /hpf (5-10); White Blood Cells 0-5 SEEN /hpf (0-5)
[2019-10-16 21:00] LABS: Lactic Acid 2.5 mmol/L (0.4-1.9)
[2019-10-16 21:07] LABS: D-Dimer Quantitative (DVT/PE) 1.51 FEU/ug/m (0.27-0.49)
--- NOTE | 2019-10-16 21:11 | CT_ITS ---
STUDY: CTA CHEST REASON FOR EXAM: Female, 83 years old. Right chest and breast pain. Abdominal pain, vomiting. RADIATION DOSAGE (If Supplied By Facility): CTDIvol = ( 8.41 ) mGy, DLP = ( 684.46 ) mGycm TECHNIQUE: The examination was performed with the intravenous administration of Isovue 370 75ml. Post-processing of the angiographic images was performed, with multiplanar reformation and 3D reconstruction. Individualized dose optimization techniques were used for this CT. COMPARISON: None. FINDINGS: The heart and pericardium are normal. The aorta is normal in caliber, with no aneurysm or dissection. There is no mediastinal mass or adenopathy. There is no hilar or axillary adenopathy. There is no evidence of pulmonary embolus. There is no pleural effusion. There is no pulmonary consolidation. Large hiatal hernia. There is no osseous abnormality. CT/CTA Chest W/WO Contrast IMPRESSION: 1. No pulmonary embolus or aortic dissection. 2. Large hiatal hernia. Electronically Signed: Laurence Covington MD at 21:56 EST Tel , Service support ,
--- NOTE | 2019-10-16 21:12 | CT_ITS ---
STUDY: CT ABDOMEN AND PELVIS WITH CONTRAST REASON FOR EXAM: Female, 83 years old. Right chest and breast pain. Right abdominal pain. RADIATION DOSAGE (If Supplied By Facility): CTDIvol = ( 8.41 ) mGy, DLP = ( 684.46 ) mGycm TECHNIQUE: Transaxial images were obtained from the dome of the diaphragm to the symphysis pubis without oral contrast. Isovue 370 75ml was administered. Sagittal and coronal images were reconstructed. Individualized dose optimization techniques were used for this CT. COMPARISON: None. FINDINGS: Lung bases are clear. Heart size is normal. Low-attenuation lesions in the liver measure up to 1 cm and are not adequately characterized. Small dependent stones in the gallbladder. Common duct is not dilated. However, 3 mm stone is suspected in the distal common duct. Multiple granulomatous calcifications in the spleen. The spleen is otherwise unremarkable. Normal pancreas. The adrenal glands are normal. The kidneys are unremarkable. No stones or hydronephrosis. The aorta is normal in caliber. There is no free fluid, free air, or organized collection. No bowel obstruction or inflammatory change. Diverticulosis. No acute diverticulitis. Urinary bladder is unremarkable. Normal abdominal wall. Normal osseous structures. CT/Abdomen/Pelvis W IV Cont ONLY IMPRESSION: 1. Cholelithiasis and choledocholithiasis. 2. Large hiatal hernia. 3. Hepatic hypodensities, too small to characterize. 4. Old healed granulomatous disease. Electronically Signed: Laurence Covington MD at 22:12 EST Tel , Service support ,
[2019-10-16] MEDS: Morphine 4 MG/ML Syringe IV (21:44)
[2019-10-16 21:48] VITALS: BP 147/66; PULSE 71; RESP 18; O2SAT 97
--- NOTE | 2019-10-16 22:36 | US_ITS ---
STUDY: ABDOMINAL ULTRASOUND - RIGHT UPPER QUADRANT REASON FOR VISIT: Female, 83 years old. Right upper quadrant pain. TECHNIQUE: Ultrasound evaluation of the right upper quadrant was performed with real-time and static merino-scale imaging. TECHNICAL QUALITY: Adequate. COMPARISON: None. FINDINGS: Liver: The liver measures 14.3 cm. There is normal echogenicity of the liver. The bile ducts are within normal limits. There is hepatic color flow. The direction of portal flow is hepatopetal. Small hepatic cysts measure up to 9 mm. Gallbladder: Normal distended gallbladder. The gallbladder wall measures 2 mm. There is a positive sonographic Toth''s sign. There is no pericholecystic fluid. Shadowing stones in the gallbladder. Trace gallbladder sludge. Common Bile Duct (C.B.D.): The common bile duct measures 5 mm. Pancreas: Visualized portions of the pancreas are unremarkable. The tail is not seen. Right Kidney: Normal size of the right kidney. The right kidney measures 10.4 x 5.4 x 4.3 cm. Normal renal cortex. The right cortex measures 1.8 cm. There is no demonstrated renal mass or cyst. There is no right hydronephrosis. US/Gallbladder IMPRESSION: 1. Cholelithiasis with positive sonographic Toth''s sign, suspicious for acute cholecystitis. 2. Small hepatic cysts. Electronically Signed: Laurecne Covington MD at 23:37 EST Tel , Service support ,
--- NOTE | 2019-10-16 23:22 | HP.PCM_ITS ---
History of Present Illness Date of Admission: 10/16/19 The patient is a 83 year old F presented to the ER with her daughter due to right-sided chest pain/upper abdominal pain nausea and vomiting. Patient's daughter reported having an episode similar about a week ago but the right side pain only lasted for about 2 hours and she did have nausea vomiting and diarrhea with that and she may have had an episode about a year ago as well but again resolved on its own. She was doing better until tonight about 5 PM she had increased upper quadrant pain. Patient had a CT abdomen pelvis done which did show small gallstones and a distended gallbladder and a questionable choledocholithiasis but nondilated common bile duct. CTA was also done due to the right chest pain which was negative for PE. Patient does have a normal white blood count with a slight left shift currently. Ultrasound gallbladder also currently pending. Past Medical History Past Medical History (Chronic Problems): Chronic Problems (Last Reviewed 04/28/19 @ 09:06 by Nikki Whiting) GERD (gastroesophageal reflux disease) (Chronic) HLD (hyperlipidemia) (Chronic) Benign essential tremor (Chronic) Vitamin D deficiency (Chronic) Hiatal hernia (Chronic) Colon polyps (Chronic) Heart murmur (Chronic) Medical History: Medical History (Last Reviewed 04/28/19 @ 09:06 by Nikki Whiting) Bimalleolar fracture of left ankle (Acute) S82.842A GERD (gastroesophageal reflux disease) (Chronic) K21.9 HLD (hyperlipidemia) (Chronic) E78.5 Benign essential tremor (Chronic) G25.0 Vitamin D deficiency (Chronic) E55.9 Hiatal hernia (Chronic) K44.9 Osteoporosis (Suspected) M81.0 Colon polyps (Chronic) K63.5 Increased PTH level (Acute) E34.9 UTI (urinary tract infection) (Acute) N39.0 Heart murmur (Chronic) R01.1 Allergies meperidine [From Demerol] Allergy (Verified 10/16/19 19:04) Unknown Sulfa (Sulfonamide Antibiotics) Allergy (Verified 10/16/19 19:04) Upset Stomach Home Medications: Ambulatory Orders Medication Instructions Recorded Atorvastatin Calcium [Lipitor] 20 mg PO QHS 02/03/19 Cyanocobalamin (Vitamin B-12) 1,000 mcg PO DAILY 02/03/19 [Vitamin B-12] Ergocalciferol (Vitamin D2) 50,000 unit PO Q7D 02/03/19 [Vitamin D2] Propranolol HCl 20 mg PO QHS 02/03/19 Acetaminophen [Tylenol] 1,000 mg PO Q8H PRN PRN 02/07/19 Menthol/Lanolin/Calamine/Znox 1 applic TOPICAL BID PRN PRN tube 02/17/19 [Calmoseptine Ointment] Ondansetron [Zofran Odt] 8 mg PO Q8 #30 tablet 02/17/19 Surgical History: hysterectomy, - - Oopherectomy, skin cancer left ear, hemorrhoids, D&C x3-4 Psychiatric History: No pertinent psych hx SECURITY SERVICES SPECIALIST History: No pertinent SECURITY SERVICES SPECIALIST history Smoking Status: Never smoker - *Family History Maternal History Items: No pertinent history Paternal History Items: No pertinent history Review of Systems Constitutional: Reports: Anorexia Cardiovascular: Denies: Chest Pain Gastrointestinal: Reports: Abdominal Pain - Right upper quadrant, Nausea, Vomiting VTE Information - Inpt Only VTE Present on Admission: Yes VTE Mechan Device Prophylaxis: SCD's VTE Pharm Prophylaxis ordered?: No Reason prophylaxis not ordered:: Treatment Not Indicated - Physical Exam Vitals/I&O's: Vital Signs Temp Pulse Resp BP Pulse Ox 97.5 F L 71 18 147/66 H 97 10/16/19 19:02 10/16/19 21:48 10/16/19 21:48 10/16/19 21:48 10/16/19 21:48 Oxygen Delivery Method Room Air Weight: 139 lb 1.787 oz Body Mass Index (BMI) 26.2 General: Alert, Oriented x3, Cooperative Lungs: Normal air movement Cardiovascular: Regular rate Abdomen: Soft, Non-Distended, Tender - Right upper quadrant and epigastric, no peritoneal signs Extremities: No clubbing, No cyanosis, No edema Neurological: Cranial nerves II-XII grossly intact Psych/Mental Status: Normal Affect Laboratory Results 10/16/19 19:20: WBC 8.3, RBC 4.08 L, Hgb 13.2, Hct 39.8, MCV 97.5, MCH 32.4 H, MCHC 33.2, RDW Std Deviation 47.6 H, RDW Coeff of Elva 13.2, Plt Count 248, MPV 10.5, Immature Gran % (Auto) 0.700, Neut % (Auto) 71.4 H, Lymph % (Auto) 17.7 L, [place] % (Auto) 8.7, Eos % (Auto) 1.0, Baso % (Auto) 0.5, Absolute Neuts (auto) 5.9, Absolute Lymphs (auto) 1.46, Nucleated RBC % 0 10/16/19 19:20: Sodium 144, Potassium 4.0, Chloride 109 H, Carbon Dioxide 29.0, Anion Gap 6, BUN 11, Creatinine 0.77, Estim Creat Clear Calc 31.60, Est GFR (MDRD) Af Amer 92, Est GFR (MDRD) Non-Af 76, BUN/Creatinine Ratio 14.3, Glucose 134 H, Calcium 8.9, Total Bilirubin 0.40, AST 14 L, ALT 27, Alkaline Phosphatase 94, Troponin I < 0.015, Total Protein 6.9, Albumin 3.5, Globulin 3.4, Albumin/Globulin Ratio 1.0, Lipase 446 H 10/16/19 19:20: D-Dimer Quant (PE/DVT) 1.51 H* 10/16/19 20:10: Lactic Acid 2.5 H* 10/16/19 20:30: Urine Color Yellow, Urine Clarity Sl. Cloudy, Urine pH 8.0, Ur S pecific [place] 1.015, Urine Protein Negative, Urine Glucose (UA) Normal, Urine Ketones Negative, Urine Occult Blood 50 H, Urine Nitrite Positive H, Urine Bilirubin Negative, Urine Urobilinogen Normal, Ur Leukocyte Esterase 25 H, Urine RBC 0-5 SEEN, Urine WBC 0-5 SEEN, Ur Squamous Epith Cells 0-5 SEEN, Urine Bacteria 2+, Urine Mucus 0 SEEN Current Medications Sodium Chloride () 1,000 mls @ 150 mls/hr IV .Q6H40M [facility] Assessment/Plan All Active Problems (Last Reviewed 04/28/19 @ 09:06 by Nikki Whiting) Bimalleolar fracture of left ankle (Acute) Increased PTH level (Acute) UTI (urinary tract infection) (Acute) 83-year-old female with cholelithiasis, possible choledocholithiasis 1. Plan to recheck patient's liver functions in the morning. Patient currently has normal liver functions. If they still remain normal would just plan to do laparoscopic cholecystectomy with grams tomorrow afternoon, then if needed depending on cholangiograms would do an ERCP. Reviewed the anatomy with the patient and discussed the procedure: laparoscopic cholecystectomy with possible cholangiograms, possible open. Review risks including but not limited to bleeding, infection, hernia, bile leak, retained gallstones requiring another procedure ERCP- Endoscopic Retrograde Cholangiopancreatography, injury to another organ (bile ducts, common bile duct, small bowel, etc.) which may require transfer to tertiary care facility and conversion to an open procedure. All questions were answered. Gretta Michael M.D. Pager: [phone] [facility] [address] [place] [address], [facility], [address] [place] [address] Office: [phone] Code Visit Inpatient E&M: 10261 Init Hosp L1
[2019-10-16] MEDS: 0.9% Normal Saline 1,000 ML 150 ML IV (23:34)
[2019-10-16 23:41] VITALS: PULSE 66; RESP 17; O2SAT 95
[2019-10-17] VITALS (16 sets, daily range): BP systolic 110–150; BP diastolic 41–72; PULSE 65–93; RESP 16–18; TEMP 36.6–37.2; O2SAT 93–100; BMI 25.7; BMI 25.8
--- NOTE | 2019-10-17 | GALL_PTH ---
PATIENT: JOSE TOLBERT LOC: MS3 U#:[id number] AGE/SX: 83/F ROOM: MS313 RE10/17/[address]: Dr. Gretta Michael MD : [id number] BED: 1 DIS: 10/18/2019 SPEC #: [id number] RECD: 10/17/19 17:17 STATUS: SABIHA PARKER #: [id number] NIMA: 10/17/19 00:[address]: Gretta Michael DEPT: SURGICAL PATHOLOGY RECD BY: Seb Berman Tissues: Gallbladder, NOS Procedures: Surgery Specimen Level III HEADER OPERATION: Laparoscopic cholecystectomy with IOC, common bile duct PRE-OP DIAGNOSIS: Cholelithiasis, possible choledocholithiasis TISSUE SUBMITTED: Gallbladder and contents MICROSCOPIC DIAGNOSIS Gallbladder and contents: Acute and chronic ulcerated cholecystitis and cholelithiasis. SJ:fallon 10/21/19 MICROSCOPIC DESCRIPTION Slides are reviewed. GROSS DESCRIPTION Received is one container labeled with the patient's name and designated gallbladder and contents. The specimen consists of a gallbladder measuring 8 cm in length and up to 3.5 cm in diameter. The serosa is congested. The external surface is pink-harrell, smooth and glistening for the most part. Focally it is granular, hemorrhagic and contains cautery artifact. The gallbladder contains harrell mucoid bile and multiple black-brownish, irregular stones measuring in aggregate 1.5 x 1 x 0.3 cm and 0.2 to 0.3 cm in greatest dimension. The mucosa is ulcerated. The gallbladder wall measures up to 0.2 cm in thickness. [employer] Hand sections from the gallbladder and the cystic duct are submitted in one cassette. / SJ:fallon 10/20/19 TC:2 CPT: 48111
[2019-10-17 00:17] LABS: Reflex Lactate? Y
[2019-10-17] MEDS: Lactated Ringers 1,000 ML 125 ML IV (00:47)
[2019-10-17 01:17] LABS: Lactic Acid 2.1 mmol/L (0.4-1.9)
[2019-10-17] MEDS: Lactated Ringers 500 ML 999 ML IV (02:30)
[2019-10-17] MEDS: 0.9% Saline Lock 10 ML Syringe IV ×3 (03:29→11:28)
[2019-10-17] MEDS: Lactated Ringers 1,000 ML 150 ML IV (03:32)
[2019-10-17 05:21] LABS: Absolute Lymphocyte Count 0.89 X10^3/uL (0.83-4.51); Absolute Neutrophil Count 5.8 X10^3/uL (2.0-7.7); Basophil# 0.02 X10^3/uL; Basophil% 0.3 % (0-1); Hematocrit 35.8 % (37-47); Hemoglobin 11.7 g/dL (12.0-15.0); Lymphocyte # 0.89 X10^3/ul (4.0); Lymphocyte % 11.9 % (19-41); Mean Corp Hgb Conc 32.7 g/dL (32-36); Mean Corpuscular Hgb 32.1 pg (27.0-32.0); Mean Corpuscular Volume 98.1 fL (81-99); Mean Platelet Vol. 10.3 fl (6.2-12.0); Monocyte% 9.4 % (0-10); NRBC Flagged by Analyzer 0 % (0-5); Neutrophil % 77.6 % (47-70); Platelet Count 186 K/mm3 (150-450); RBC Distribution Width SD 46.3 fl (35.1-43.9); Red Blood Count 3.65 M/mm3 (4.2-5.4); White Blood Count 7.5 K/mm3 (4.4-11.0)
[2019-10-17 05:39] LABS: AST(SGOT) 15 U/L (15-37); Alanine Aminotransfer ALT/SGPT 21 U/L (13-56); Albumin, Serum 2.8 g/dL (3.2-5.0); Alkaline Phosphatase 76 U/L (45-117); Anion Gap 5 (5-15); BUN 6 mg/dL (7-18); BUN/Creat Ratio 9.5 RATIO (10-20); Bilirubin, Direct 0.19 mg/dL (0.00-0.30); Calcium,Total 8.4 mg/dL (8.5-10.1); Chloride 109 mmol/L (98-107); Creatinine, Serum 0.63 mg/dL (0.55-1.02); EST Glomerular Filtration Rate 95 mL/min (>60); Est Glom Filt Rate - Afr Amer 115 mL/min (>60); Globulin 2.6 g/dL (2.2-4.2); Glucose 106 mg/dL (74-106); Lipase 113 U/L (73-393); Potassium 4.1 mmol/L (3.5-5.1); Protein, Total 5.4 g/dL (6.4-8.2); Sodium Level 141 mmol/L (136-145)
[2019-10-17 05:44] LABS: Lactic Acid 2.5 mmol/L (0.4-1.9)
--- NOTE | 2019-10-17 06:43 | PN.SURG_ITS ---
Subjective: Patient denies any pain this morning, urinated 400 overnight white blood count still within normal limits slight shift, LFTs are normal lipase is also normal - Physical Exam Vitals/I&O's: Vital Signs Temp Pulse Resp BP Pulse Ox 98.2 F 68 16 112/54 L 97 10/17/19 05:55 10/17/19 05:55 10/17/19 05:55 10/17/19 05:55 10/17/19 05:55 Oxygen Delivery Method Room Air Weight: 138 lb 10.732 oz Body Mass Index (BMI) 25.7 Intake and Output for Last 24 Hours 10/15/19 10/16/19 10/17/19 23:59 23:59 23:59 Intake Total 1000 / 1000 1094.59 / 1094.59 Output Total 400 / 400 Balance 1000 / 1000 694.59 / 694.59 General: Alert, Oriented x3, Cooperative, No apparent distress HEENT: Atraumatic Lungs: Normal air movement Cardiovascular: Regular rate Abdomen: Soft, Non-Distended, Tender - Mild right upper quadrant, no peritoneal signs Extremities: No clubbing, No cyanosis, No edema Neurological: Cranial nerves II-XII grossly intact Psych/Mental Status: Normal Affect Laboratory Results 10/16/19 19:20: WBC 8.3, RBC 4.08 L, Hgb 13.2, Hct 39.8, MCV 97.5, MCH 32.4 H, MCHC 33.2, RDW Std Deviation 47.6 H, RDW Coeff of Elva 13.2, Plt Count 248, MPV 10.5, Immature Gran % (Auto) 0.700, Neut % (Auto) 71.4 H, Lymph % (Auto) 17.7 L, Ocean % (Auto) 8.7, Eos % (Auto) 1.0, Baso % (Auto) 0.5, Absolute Neuts (auto) 5.9, Absolute Lymphs (auto) 1.46, Nucleated RBC % 0 10/16/19 19:20: Sodium 144, Potassium 4.0, Chloride 109 H, Carbon Dioxide 29.0, Anion Gap 6, BUN 11, Creatinine 0.77, Estim Creat Clear Calc 31.60, Est GFR (MDRD) Af Amer 92, Est GFR (MDRD) Non-Af 76, BUN/Creatinine Ratio 14.3, Glucose 134 H, Calcium 8.9, Total Bilirubin 0.40, AST 14 L, ALT 27, Alkaline Phosphatase 94, Troponin I < 0.015, Total Protein 6.9, Albumin 3.5, Globulin 3.4, Albumin/Globulin Ratio 1.0, Lipase 446 H 10/16/19 19:20: D-Dimer Quant (PE/DVT) 1.51 H* 10/16/19 20:10: Lactic Acid 2.5 H* 10/16/19 20:30: Urine Color Yellow, Urine Clarity Sl. Cloudy, Urine pH 8.0, Ur Specific [place] 1.015, Urine Protein Negative, Urine Glucose (UA) Normal, Urine Ketones Negative, Urine Occult Blood 50 H, Urine Nitrite Positive H, Urine Bilirubin Negative, Urine Urobilinogen Normal, Ur Leukocyte Esterase 25 H, Urine RBC 0-5 SEEN, Urine WBC 0-5 SEEN, Ur Squamous Epith Cells 0-5 SEEN, Urine Bacteria 2+, Urine Mucus 0 SEEN 10/17/19 00:35: Lactic Acid 2.1 H* 10/17/19 05:06: Sodium 141, Potassium 4.1, Chloride 109 H, Carbon Dioxide 27.0, Anion Gap 5, BUN 6 L, Creatinine 0.63, Estim Creat Clear Calc 31.60, Est GFR (MDRD) Af Amer 115, Est GFR (MDRD) Non-Af 95, BUN/Creatinine Ratio 9.5 L, Glucose 106, Calcium 8.4 L, Total Bilirubin 0.50, Direct Bilirubin 0.19, AST 15, ALT 21, Alkaline Phosphatase 76, Total Protein 5.4 L, Albumin 2.8 L, Globulin 2.6, Lipase 113 10/17/19 05:06: WBC 7.5, RBC 3.65 L, Hgb 11.7 L, Hct 35.8 L, MCV 98.1, MCH 32.1 H, MCHC 32.7, RDW Std Deviation 46.3 H, RDW Coeff of Elva 13.0, Plt Count 186, MPV 10.3, Immature Gran % (Auto) 0.800, Neut % (Auto) 77.6 H, Lymph % (Auto) 11.9 L, Ocean % (Auto) 9.4, Eos % (Auto) 0.0, Baso % (Auto) 0.3, Absolute Neuts (auto) 5.8, Absolute Lymphs (auto) 0.89, Nucleated RBC % 0 10/17/19 05:06: Lactic Acid 2.5 H* Current Medications Piperacillin Sod/Tazobactam (Sod 3.375 gm/ Sodium Chloride) 50 mls @ 12.5 mls/hr IV Q8 [facility] Last Admin: 10/17/19 05:48 Dose: 12.5 mls/hr Documented by: Pantoprazole Sodium 40 mg/ (Sodium Chloride) 110 mls @ 330 mls/hr IV Q24 G[facility] Last Infusion: 10/17/19 01:16 Dose: Infused Documented by: Sodium Chloride () 250 mls @ 15 mls/hr IV .[id number] PRN PRN Reason: Additional IVPB Infusion Last Infusion: 10/17/19 05:52 Dose: 0 mls/hr Documented by: Lactated Ringer's () 1,000 mls @ 150 mls/hr IV .[id number] [facility] Last Admin: 10/17/19 03:32 Dose: 150 mls/hr Documented by: Melatonin (Melatonin) 6 mg PO QHS [facility] Morphine Sulfate () 1 - 3 mg IV Q2H PRN PRN PRN Reason: Pain Score 1-10/10 Nutritional Formula (Lactose Free) (Ensure Enlive) 120 ml PO 4X/DAY GER Ondansetron HCl (Zofran) 4 mg IV Q6H PRN PRN PRN Reason: NAUSEA Propranolol HCl (Inderal) 20 mg PO QHS [facility] Last Admin: 10/17/19 00:47 Dose: Not Given Documented by: Simethicone (Mylicon) 80 mg PO PCHS [facility] Sodium Chloride () 10 - 40 ml IV UD PRN PRN Reason: SALINE FLUSH Last Admin: 10/17/19 05:43 Dose: 10 ml Documented by: Medical Necessity - Tobacco Use Smoking Status: Never smoker Assessment/Plan All Active Problems (Last Reviewed 04/28/19 @ 09:06 by Nikki Whiting) Bimalleolar fracture of left ankle (Acute) Increased PTH level (Acute) UTI (urinary tract infection) (Acute) 83-year-old female with cholelithiasis, possible choledocholithiasis 1. We will plan for a laparoscopic cholecystectomy with cholangiograms, possible open, possible laparoscopic common bile duct exploration this afternoon as patient's liver functions are normal this morning. Patient did have an elevated lactic acid again unsure source as patient has been urinating well with 400 cc overnight as well his pain has improved white blood cell count is still within normal limits patient is on Zosyn IV for the possible choledocholithiasis. We will plan to recheck lactic acid see if it could be a possible lab error. Patient had no further questions about the procedure this morning. Patient's UA is suspicious for UTI, urine culture pending patient is on Zosyn 3.375 g IV every 8 hours already. Addendum: repeat lactic acid still 2.6, patient still denies abdominal pain however patient is on LR at 150 unsure if this could be the reason of the elevated lactate will change to normal saline at 150.--Addendum: Next repeat was 1.8 within normal limits. Gretta Michael M.D. Pager: [phone] [facility] [address] [place] [address], [facility], [address] [place] [address] Office: [phone]
[2019-10-17 07:43] LABS: Lactic Acid 2.6 mmol/L (0.4-1.9)
[2019-10-17 09:12] LABS: Reflex Lactate? Y
[2019-10-17] MEDS: 0.9% Normal Saline 1,000 ML 120 ML IV (09:30)
[2019-10-17 10:05] LABS: Lactic Acid 1.8 mmol/L (0.4-1.9)
[2019-10-17 10:55] LABS: Reflex Lactate? Y
--- NOTE | 2019-10-17 13:58 | CASEMGMT ---
RN CM attempted to complete assessment at this time. Patient is currently at surgery. CM to attempt assessment at later time.
--- NOTE | 2019-10-17 14:00 | RAD_ITS ---
CLINICAL HISTORY: Female, 83 years old. Cholecystitis PROCEDURE: CHOLANGIOGRAM - intraoperative CONSENT: SEDATION: FLUOROSCOPY TIME (if supplied): (150.8) seconds Placement of the catheter and the procedure were performed by: Operating surgeon Fluoroscopy was provided by nuclear cardiology technologist, who was present in the room time of the procedure. TECHNIQUE: (Intraoperative cholangiogram was performed in the usual fashion utilizing fluoroscopic guidance. Multiple films were obtained during the exam. For more complete information recommend correlation with surgical notes) RAD/Cholangiogram/ O R,Initial IMPRESSION: Fluoroscopic guided intraoperative cholangiogram Electronically Signed: Austyn Ochoa MD at 21:06 EST , Service support ,
[2019-10-17] MEDS: Bupivacaine Mpf 0.5% 30 ML VIAL (16:01)
--- NOTE | 2019-10-17 16:02 | OP.PCM_ITS ---
Report of Operation Date of Procedure: 10/17/19 Pre-Operative Diagnosis: Acute cholecystitis, cholelithiasis, choledocholi thiasis Post-Operative Diagnosis: Same Surgery/Procedure Performed:: Laparoscopic cholecystectomy with cholangiograms, laparoscopic common bile duct exploration and CBD stent placement 7 Gambian patient care coordinator: Hipolito Salgado Type of Anesthesia:: General/Supplemental Anesthesiologist: Dani Pizarro Special Medications: Zosyn 3.375 g IV every 8 for acute cholecystitis Specimen's removed: Gallbladder Estimated Blood Loss (mL): 30 cc Fluids Replaced: 600 cc Description of Procedure: Indications this is a 83 year-old female who developed abdominal pain/nausea/vomiting and on workup was found to have acute cholecystitis, cholelithiasis, choledocholithiasis, with a normal common bile duct and normal LFTs. Laparoscopic cholecystectomy was elected. Patient was on Zosyn 3.375 g IV every 8 for acute cholecystitis on the floor Description procedure: The patient was placed on operating table in supine position. General Anesthesia was induced. A timeout was completed verifying correct patient, procedure, site, position and special equipment prior to beginning procedure. The abdomen was prepped and draped in usual sterile fashion. An incision was made in the natural skin line above the umbilicus. The fascia was elevated and incised. The peritoneum was elevated and incised. Entry into the peritoneum was confirmed visually and no bowel was noted in the vicinity of the incision. Berg trocar was placed. The abdomen was insufflated with carbon dioxide to a pressure of 12-15 mmHg. Patient tolerated insufflation well. The laparoscope was then inserted and abdomen inspected. No injuries from initial trocar placement were noted. Additional trochars were then inserted in the following locations 5 mm trocar in the epigastrium and 2 more 5 mm trochars along the right costal margin. The abdomen was inspected and the liver was noted to be adhesed to the abdominal wall and the gallbladder was distended/tense and erythematous. The table is placed in reverse Trendelenburg position with the right side up. Due to to tense gallbladder and aspiration needle was used to decompress the gallbladder. The adhesions between the gallbladder and omentum were lysed sharply. The dome of the gallbladder was grasped with atraumatic grasper passed through the lateral port and retracted over the dome of the liver. Infundibulum was then grasped with atraumatic grasper through the midclavicular port and retracted to the right lower quadrant. This maneuver exposed Calot's triangle. The peritoneum overlying the gallbladder infundibulum was then incised and cystic duct and artery identified and circumferentially dissected. Nam catheter was used for cholangiograms. The cholangiogram showed filling defects in the common bile duct. Patient was given glucagon. The cystic duct introducer set was opened and additional incision was made in the right upper quadrant. The guidewire as well as cholangiogram catheter were inserted into the abdomen. A juan was made in the cystic duct and the catheter and wire were placed in the cystic duct and directed to the common bile duct under fluoroscopy. The introducer was changed out for the LEARNING DISABLED TEACHER dilation catheter. This was advanced over the wire and on fluoroscopy was noted to be across the ampulla. This was carefully insufflated under fluoroscopy and held for about 1 to 2 minutes. The dilation catheter balloon was removed and the cholangiogram catheter was replaced over the wire. Cholangiogram was done after initial flushing with saline and still showed a small stone at the distal common bile duct. A stiffer wire was exchanged for the Glidewire 0.[address] the 7 [place]ian biliary stent. The stent was directed using fluoroscopy making sure to be passed the ampulla into the duodenum and the proximal end in the mid common bile duct. Fluoroscopy picture was taken. The cystic duct and artery were then doubly clipped and divided close to the gallbladder. The gallbladder then dissected from its peritoneal attachments by electrocautery. Hemostasis was checked and the gallbladder and contained stones were removed using the endoscopic retrieval bag through the umbilical port. The gallbladder is passed off table as specimen. The gallbladder fossa was copiously irrigated with saline and hemostasis obtained. There is no evidence of bleeding from the gallbladder fossa or cystic artery leakage of bile from the cystic duct stump. Secondary trochars removed under direct vision. No bleeding was noted the trocar sites. The laparoscope was withdrawn and umbilical trocar removed. The abdomen was allowed to collapse. The fascia of the 12 mm trocar was closed with a [id number] 0 Vicryl suture. The skin was closed with sutures of 4-0 Monocryl and Steri-Strips. The orogastric tube was removed and the patient was extubated. The patient tolerated procedure well and was taken to the postanesthesia care unit in stable condition. Grafts/Implants Used: biliary stent 7 Fr - Complications none
--- NOTE | 2019-10-17 17:16 | DCINST_ITS ---
Discharge Diet: Light diet - advance as tolerated Lifting Restrictions: no lifting > 20 lbs x 2 weeks Call your doctor if your incision/area has: Continuous Slow Oozing, Sudden Increased Bleeding, Increased Pain/ Swelling, Increased Redness, Foul Smelling Discharge, Swelling at the incision site Call your doctor if you observe: Fever of 101 or Higher Remove Dressing in (days):: 1 Additional Instructions: We will plan to have you follow-up with Dr. Velasco for stent removal in about 4 weeks. Okay to take Tylenol with the OxyIR as there is no Tylenol in it. Take all pain meds with food. OxyIR can cause constipation recommend taking daily stool softener (i.e. Colace/docusate) while taking the pain meds. Recommend starting some MiraLAX 1 to 2 days if no bowel movement. If still no bowel movement following day recommend taking magnesium citrate half the bottle and waiting 4-6 hours if still no results take the other half the bottle. Allergies/Adverse Reactions: Allergies meperidine [From Demerol] Allergy (Verified 10/16/19 19:04) Unknown Sulfa (Sulfonamide Antibiotics) Allergy (Verified 10/16/19 19:04) Upset Stomach Medications to take at Discharge Atorvastatin Calcium [Lipitor] 20 mg PO QHS 02/03/19 Cyanocobalamin (Vitamin B-12) [Vitamin B-12] 1,000 mcg PO DAILY 02/03/19 Ergocalciferol (Vitamin D2) [Vitamin D2] 50,000 unit PO Q7D 02/03/19 Propranolol HCl 20 mg PO QHS 02/03/19 Acetaminophen [Tylenol] 1,000 mg PO Q8H PRN PRN 02/07/19 Menthol/Lanolin/Calamine/Znox [Calmoseptine Ointment] 1 applic TOPICAL BID PRN PRN tube 02/17/19 Ondansetron [Zofran Odt] 8 mg PO Q8 #30 tablet 02/17/19 Oxycodone [Oxyir] 5 mg PO Q6H PRN PRN 3 Days #5 tab 10/17/19 Pantoprazole Sodium 40 mg PO DAILY #30 tablet. 10/17/19 The following prescriptions were given: Oxycodone [Oxyir] 5 mg PO Q6H PRN PRN 3 Days #5 tab PRN Reason: Pain Score 4-10/10 Transmission Status: Received by [facility] Pantoprazole Sodium 40 mg PO DAILY #30 tablet.dr Transmission Status: Received by [facility] Primary Care Physician: [facility] Doctor,Out of [NON-STAFF] - Test Results: Test results from this visit will be discussed in further detail at your follow- up appointment, if applicable. Please Follow Up With: Gretta Michael MD - After 5:00 and on the weekends call [phone] with any concerns When: Call the office for follow-up appointment in 2 weeks, Proposed Discharge Date: 10/18/19
[2019-10-17] MEDS: 0.9% Normal Saline 1,000 ML 100 ML IV (17:22)
[2019-10-17] MEDS: Propranolol 10 MG Tablet 20 MG PO (22:26)
--- NOTE | 2019-10-17 22:41 | NURSING ---
assisted pt to the bathroom. pt tolerated well. returned to bed, HOB elevated, scd's applied. pt used the IS x10.
[2019-10-17] MEDS: Ensure Clear 120 ML Liquid PO (23:08)
[2019-10-18 00:17] VITALS: O2SAT 92
--- NOTE | 2019-10-18 00:51 | NURSING ---
assisted pt to the bathroom and then walked in the [place]. tolerated well. returned to bed. scd's applied.
[2019-10-18 01:12] VITALS: O2SAT 94
[2019-10-18 03:15] VITALS: BP 115/65; PULSE 87; RESP 18; TEMP 36.8; O2SAT 92
--- NOTE | 2019-10-18 05:49 | PCM.PN.SRG ---
Subjective: Patient notes soreness in the right mid abdomen. She has not been up much since the time of surgery. No nausea. No flatus. - Physical Exam Vitals/I&O's: Vital Signs Temp Pulse Resp BP Pulse Ox 98.3 F 87 18 115/65 92 10/18/19 03:15 10/18/19 03:15 10/18/19 03:15 10/18/19 03:15 10/18/19 03:15 Oxygen Flow Rate (L/min) 1 Oxygen Delivery Method Room Air Weight: 138 lb 10.732 oz Body Mass Index (BMI) 25.8 Intake and Output for Last 24 Hours 10/16/19 10/17/19 10/18/19 23:59 23:59 23:59 Intake Total 1000 / 1000 3717.92 / 3717.92 64.25 / 64.25 Output Total 1300 / 1300 Balance 1000 / 1000 2417.92 / 2417.92 64.25 / 64.25 Lungs: - - Clear, diminished in the bases, uncomfortable with deep respiration Abdomen: Soft, Hypoactive Bowel Sounds, Distended, Tender Laboratory Results 10/17/19 06:42: Lactic Acid 2.6 H* 10/17/19 09:20: Lactic Acid 1.8 Current Medications Pantoprazole Sodium 40 mg/ (Sodium Chloride) 110 mls @ 330 mls/hr IV Q24 [facility] Last Admin: 10/17/19 08:26 Dose: Not Given Documented by: Sodium Chloride () 250 mls @ 15 mls/hr IV .[id number] PRN PRN Reason: Additional IVPB Infusion Last Infusion: 10/18/19 03:14 Dose: Infused Documented by: Sodium Chloride () 1,000 mls @ 80 mls/hr IV .[id number] [facility] Last Infusion: 10/17/19 18:27 Dose: 80 mls/hr Documented by: Melatonin (Melatonin) 6 mg PO QHS [facility] Last Admin: 10/17/19 22:25 Dose: Not Given Documented by: Morphine Sulfate () 1 - 3 mg IV Q2H PRN PRN PRN Reason: Pain Score 1-10/10 Nutritional Formula (Lactose Free) (Ensure Clear) 120 ml PO 4X/DAY [facility] Last Admin: 10/17/19 23:08 Dose: 120 ml Documented by: Ondansetron HCl (Zofran) 4 mg IV Q6H PRN PRN PRN Reason: NAUSEA Propranolol HCl (Inderal) 20 mg PO QHS [facility] Last Admin: 10/17/19 22:26 Dose: 20 mg Documented by: Simethicone (Mylicon) 80 mg PO PCHS [facility] Last Admin: 10/17/19 22:26 Dose: 80 mg Documented by: Sodium Chloride () 10 - 40 ml IV UD PRN PRN Reason: SALINE FLUSH Last Admin: 10/17/19 11:28 Dose: 10 ml Documented by: Medical Necessity - Tobacco Use Smoking Status: Never smoker Assessment/Plan All Active Problems (Last Reviewed 04/28/19 @ 09:06 by Nikki Whiting) Bimalleolar fracture of left ankle (Acute) Increased PTH level (Acute) UTI (urinary tract infection) (Acute) We will need to mobilize patient and see how she progresses through the first portion of the day. Possible discharge later today.
[2019-10-18] MEDS: 0.9% Normal Saline 1,000 ML 30 ML IV (06:02)
--- NOTE | 2019-10-18 06:23 | NURSING ---
Pt walked a half alp in the [place]at[place] with SBA. Tolerated well.
[2019-10-18] MEDS: Acetaminophen 325 MG Tablet 650 MG PO (08:45)
[2019-10-18 09:15] VITALS: BP 146/69; PULSE 90; RESP 18; TEMP 37.3; O2SAT 93
--- NOTE | 2019-10-18 09:44 | NURSING ---
PT AMBULATORY IN [place]-PT STATES SHE PASSED FLATUS
--- NOTE | 2019-10-18 13:04 | CASEMGMT ---
RN CM Assessment Presentation: Lap Choley, CBD stent Intro role of CM and purpose of RN CM assessment to patient and her family. Pt is awake, alert and able to participate in assessment. Demographics, PCP and Pharmacy verified. Pt plans to return home today and family available for support if needed. PCP: Dr. Garner Specialists: Dr. Hipolito Salgado Preferred [facility]acy: [facility] Insurance: [facility] Prescription Benefit: yes LNOK: Daughter Tessie Crabtree Living Arrangements: Lives independently per pt. Plan is to return home with family support. Denies care needs. Transportation: family assists DME: none per pt. HHC/SNF: none Patient DC goals: Home today DC PLAN: Home. Jesus FELIZ RN ACM
[2019-10-18] MEDS: Cefdinir 300 MG Capsule PO (14:12)
[2019-10-18 14:20] VITALS: BP 128/54; PULSE 82; RESP 18; TEMP 37.4; O2SAT 95
--- NOTE | 2019-10-18 14:21 | NURSING ---
PT TOOK FULL LIQUIDS WITHOUT N/V
== END 2019-10-18 15:10 | disposition home or self-care (01) | DRG 418 ==
LOC: ED 19:38 → MS3 23:33
PROVIDERS: Admitting Provider Surgery; Emergency Provider Emergency Medicine; Visit Provider Surgery
PROC: 0FT44ZZ Resection of Gallbladder, Percutaneous Endoscopic Approach (ICD-10-PCS; CPT 47610; principal; 2019-10-17 13:50)
DX: K80.62 Calculus of gallbladder and bile duct with acute cholecystitis without obstruction (principal); N39.0 Urinary tract infection, site not specified; K44.9 Diaphragmatic hernia without obstruction or gangrene; E55.9 Vitamin D deficiency, unspecified; E78.5 Hyperlipidemia, unspecified; B96.20 Unspecified Escherichia coli [E. coli] as the cause of diseases classified elsewhere
CPT/HCPCS: 36415; 71045; 71275; 74177; 74300; 76000; 76705; 80048; 80053; 80076; 81001; 83605; 83690; 84484; 85025; 85379; 87077; 87086; 87088; 87186; 88304; 93005; 97802; 99285; J7030; J7050; J7120; Q9967; A4216; C1725; C1769; J1610; J2405

== ENCOUNTER 2019-11-05 11:52 | Day surgery (SDC) | payer MEDICARE, BC, SELFPAY ==
[2019-10-30 08:47] VITALS: BMI 25.8
--- NOTE | 2019-11-05 11:29 | HP.PCM_ITS ---
Problem List (1) Choledocholithiasis Status: Acute History of Present Illness Date of Admission: 11/05/19 The patient is a 84 year old F who is here for ERCP. Patient recently underwent laparoscopic cholecystectomy with common duct exploration was found to have a retained stone in the common bile duct. A stent was placed from the cystic duct. Patient reports no issues at this time. Past Medical History Past Medical History (Chronic Problems): Chronic Problems (Last Updated 10/30/19 @ 08:33 by Cyndy Ovalles) GERD (gastroesophageal reflux disease) (Chronic) HLD (hyperlipidemia) (Chronic) Benign essential tremor (Chronic) Vitamin D deficiency (Chronic) Hiatal hernia (Chronic) Colon polyps (Chronic) Heart murmur (Chronic) Medical History: Medical History (Last Updated 10/30/19 @ 08:33 by Cyndy Ovalles) Bimalleolar fracture of left ankle (Acute) S82.842A GERD (gastroesophageal reflux disease) (Chronic) K21.9 HLD (hyperlipidemia) (Chronic) E78.5 Benign essential tremor (Chronic) G25.0 Vitamin D deficiency (Chronic) E55.9 Hiatal hernia (Chronic) K44.9 Osteoporosis (Suspected) M81.0 Colon polyps (Chronic) K63.5 Increased PTH level (Acute) E34.9 UTI (urinary tract infection) (Acute) N39.0 Heart murmur (Chronic) R01.1 Cholecystitis, acute K81.0 Cholelithiasis K80.20 Allergies meperidine [From Demerol] Allergy (Verified 11/04/19 08:34) Unknown Sulfa (Sulfonamide Antibiotics) Allergy (Verified 11/04/19 08:34) Upset Stomach Home Medications: Ambulatory Orders Medication Instructions Recorded Atorvastatin Calcium [Lipitor] 20 mg PO QHS 02/03/19 Cyanocobalamin (Vitamin B-12) 1,000 mcg PO DAILY 02/03/19 [Vitamin B-12] Propranolol HCl 20 mg PO QHS 02/03/19 Acetaminophen [Tylenol] 1,000 mg PO Q8H PRN PRN 02/07/19 Menthol/Lanolin/Calamine/Znox 1 applic TOPICAL BID PRN PRN tube 02/17/19 [Calmoseptine Ointment] Pantoprazole Sodium 40 mg PO DAILY #30 tablet. 12/20/19 Surgical History: Surgical History (Last Updated 10/30/19 @ 08:36 by Cyndy Ovalles) History of laparoscopic cholecystectomy Onset Date: ~10/17/19 Z90.49 history common bile duct exploration Onset Date: ~10/17/19 Surgical History: hysterectomy, - - Oopherectomy, skin cancer left ear, hemorrhoids, D&C x3-4 Psychiatric History: No pertinent psych hx GRAIN OILSEED OR PASTURE GROWER History: No pertinent GRAIN OILSEED OR PASTURE GROWER history Smoking Status: Never smoker Tobacco Use: Non-smoker - *Family History Maternal History Items: No pertinent history Paternal History Items: No pertinent history Review of Systems Constitutional: Denies: Fever HEENT: Denies: Difficulty Swallowing Cardiovascular: Denies: Chest Pain Respiratory: Denies: Cough, Shortness of Breath Gastrointestinal: Denies: Abdominal Pain Skin: Denies: Jaundice VTE Information - Inpt Only VTE Present on Admission: No VTE Mechan Device Prophylaxis: SCD's - Physical Exam Vitals/I&O's: Body Mass Index (BMI) 25.8 General: Alert, Oriented x3 Lungs: Normal air movement Cardiovascular: Regular rate, Regular Rhythm Abdomen: Soft, Non Tender, Non-Distended Assessment/Plan All Active Problems (Last Updated 10/30/19 @ 08:33 by Cyndy Ovalles) Choledocholithiasis (Acute) Bimalleolar fracture of left ankle (Acute) Increased PTH level (Acute) UTI (urinary tract infection) (Acute) 84-year-old female with choledocholithiasis 1. Patient had retained stone during laparoscopic common duct exploration. The stent was placed from the trans-cystic route. I discussed ERCP with the patient in detail. I discussed that I would remove the stent and attempt to remove the retained stone. I discussed the risks of the procedure including but not limited to bleeding, infection, perforation of the bile duct or bowel, pancreatitis. The patient understands the risks and is willing to proceed with surgery. Matthew Velasco MD Pager: [facility] [address] [place] [address] Office:
[2019-11-05 12:34] VITALS: BP 136/69; PULSE 72; RESP 16; TEMP 36.1; O2SAT 96; BMI 23.9
[2019-11-05] MEDS: Lactated Ringers 1,000 ML 100 ML IV (12:44)
--- NOTE | 2019-11-05 13:00 | RAD_ITS ---
CLINICAL HISTORY: PAIN, STENT REMOVAL, SPHINCTEROTOMY, BALLOON PASSES. 3 IMAGES COMPARISON: None. TECHNIQUE: 3 image(s) of an ERCP performed by Physician: Matthew Velasco were submitted for evaluation. FINDINGS: 3 images are submitted for review. Endoscope is seen in place with cannulation of the common bile duct. Opacification of a grossly unremarkable common bile duct and intrahepatic biliary system is noted. RAD/ERCP Biliary Only IMPRESSION: 3 intraprocedural images during ERCP. Please see associated operative report for further details. Electronically Signed: Baudilio Williamson, at 20:19 EST Tel , Service support ,
[2019-11-05 14:26] VITALS: BP 136/69; BP 141/61; PULSE 73; RESP 16; TEMP 36.5; O2SAT 99
[2019-11-05 14:30] VITALS: BP 136/69; BP 145/56; PULSE 73; RESP 17; O2SAT 96
[2019-11-05 14:45] VITALS: BP 136/69; BP 151/53; PULSE 59; RESP 16; O2SAT 100
[2019-11-05 14:56] VITALS: BP 136/69; BP 157/54; PULSE 65; RESP 16; TEMP 36.8; O2SAT 97
[2019-11-05 15:59] VITALS: BP 136/69; BP 146/54; PULSE 58; RESP 16; TEMP 36.4; O2SAT 99
--- NOTE | 2019-11-08 12:53 | OP.ERCP_ITS ---
Patient Name: Tamy Delgado Procedure Date: 11/05/2019 1:45 PM Date of : 1935 Age: 84 Procedure: ERCP Indications: Bile duct stone(s) Providers: Matthew Velasco MD Referring MD: Matthew Velasco MD Medicines: General Anesthesia Patient Profile: This is an 84 year old female. Refer to note in patient chart for documentation of history and physical. Complications: No immediate complications. Procedure: Pre-Anesthesia Assessment: - Prior to the procedure, a History and Physical was performed, and patient medications and allergies were reviewed. The patient's tolerance of previous anesthesia was also reviewed. The risks and benefits of the procedure and the sedation options and risks were discussed with the patient. All questions were answered, and informed consent was obtained. Prior Anticoagulants: The patient has taken no previous anticoagulant or antiplatelet agents. After reviewing the risks and benefits, the patient was deemed in satisfactory condition to undergo the procedure. After obtaining informed consent, the scope was passed under direct vision. Throughout the procedure, the patient's blood pressure, pulse, and oxygen saturations were monitored continuously. The [id number] endoscope was introduced through the mouth, and advanced to the duodenum and used to inject contrast into the bile duct. The ERCP was accomplished without difficulty. The patient tolerated the procedure well. Scope In: 1:57:50 PM Scope Out: 2:06:57 PM Total Procedure Duration Time 0 hours 9 minutes 7 seconds Findings: One stent was removed from the biliary tree using a snare. A 0.035 inch x 260 cm straight Dreamwire was passed into the biliary tree. The sphincterotome was passed over the guidewire and the bile duct was then deeply cannulated. Contrast was injected. Biliary sphincterotomy was made with a monofilament sphincterotome using ERBE electrocautery. There was no post-sphincterotomy bleeding. The biliary tree was swept with a 12 mm balloon starting at the bifurcation. Sludge was swept from the duct. The endoscope was withdrawn from the patient. The upper GI tract was traversed under direct vision without detailed examination. A medium-sized hiatal hernia was present. Impression: - Medium-sized hiatal hernia. - One stent was removed from the biliary tree. - A biliary sphincterotomy was performed. - The biliary tree was swept and sludge was found. Recommendation: - Resume previous diet. - Discharge patient to home. - Continue present medications. - Watch for pancreatitis, bleeding, perforation, and cholangitis. Procedure Code(s): --- Professional --- 75537, Endoscopic retrograde cholangiopancreatography (ERCP); with removal of foreign body(s) or stent(s) from biliary/pancreatic duct(s) Diagnosis Code(s): --- Professional --- K44.9, Diaphragmatic hernia without obstruction or gangrene Z46.59, Encounter for fitting and adjustment of other gastrointestinal appliance and device K80.50, Calculus of bile duct without cholangitis or cholecystitis without obstruction CPT copyright 2017 [employer]. All rights reserved. The codes documented in this report are preliminary and upon medical insurance coder review may be revised to meet current compliance requirements. Matthew Velasco MD 11/05/2019 2:20:17 PM This report has been signed electronically. Number of Addenda: 0 Note Initiated On: 11/05/2019 1:45 PM
== END 2019-11-05 16:04 | disposition home or self-care (01) ==
LOC: EN 11:54 → AC 11:55
PROVIDERS: Referring Provider Surgery; Visit Provider Surgery
PROC: (CPT 43260; principal; 2019-11-05 12:30)
DX: K80.50 Calculus of bile duct without cholangitis or cholecystitis without obstruction (principal); Z46.59 Encounter for fitting and adjustment of other gastrointestinal appliance and device; K44.9 Diaphragmatic hernia without obstruction or gangrene; E78.00 Pure hypercholesterolemia, unspecified; G25.0 Essential tremor; M81.0 Age-related osteoporosis without current pathological fracture; R01.1 Cardiac murmur, unspecified
CPT/HCPCS: 43275; 74328; 76000; J7120; J2405

== ENCOUNTER 2021-01-07 15:49 | Outpatient (RCR) | payer MEDICARE, BC, SELFPAY ==
[2021-01-07] MEDS: COVID-19 VACC, MRNA(PFIZER)/PF 30 MCG/0.3 ML SYRINGE IM (14:57)
[2021-01-28] MEDS: COVID-19 VACC, MRNA(PFIZER)/PF 30 MCG/0.3 ML SYRINGE IM (14:43)
== END 2021-04-05 23:59 ==
LOC: IMMUN 15:49
PROVIDERS: Referring Provider Family Medicine; Visit Provider Family Medicine
DX: Z23 Encounter for immunization (principal)
CPT/HCPCS: 0001A; 0002A; 91300

== ENCOUNTER 2021-09-26 08:35 | Day surgery (SDC) | payer MEDICARE, BC, SELFPAY ==
[2021-09-26] VITALS (8 sets, daily range): BP systolic 102–138; BP diastolic 54–88; PULSE 58–67; RESP 16–18; TEMP 35.7–36.5; O2SAT 94–100; BMI 24.5
--- NOTE | 2021-09-26 | LES_PTH ---
PATIENT: JOSE TOLBERT LOC: [facility] U#:[id number] AGE/SX: 85/F ROOM: RE09/26/[address]: Dr. Vincent Hawk MD : 1935 BED: DIS: 09/26/2021 SPEC #: [id number] RECD: 09/26/21 10:24 STATUS: SABIHA REWendy #: [id number] NIMA: 09/26/21 00:[address]: Vincent Hawk DEPT: SURGICAL PATHOLOGY RECD BY: Sharmin Maradiaga Tissues: A - Skin of forehead B - Skin of forehead Procedures: Frozen Section (charge) Frozen Section Add'l ([facility]) Surgery Specimen Level IV HEADER OPERATION: Excision, lesion right lateral forehead, excision basal cell PRE-OP DIAGNOSIS: Lesion right lateral forehead, 1cm, clinically suspicious for carcinoma TISSUE SUBMITTED: A - 1 cm lesion right lateral forehead, suture at 12 o?clock, FS, B - Basal cell carcinoma right lateral forehead, suture at 12 o?clock FROZEN SECTION DIAGNOSIS A. Lesion right lateral forehead, biopsy: Basal cell carcinoma SJ:chhaya 09/26/21 MICROSCOPIC DIAGNOSIS A. Lesion right lateral forehead, biopsy: Basal cell carcinoma, completely excised. Actinic keratosis with moderate to severe atypia. Extensive solar elastosis. See comment. B. Basal cell carcinoma, right lateral forehead, excisional biopsy: Actinic keratosis and solar elastosis. Negative for carcinoma. SJ:fallon 09/27/2021 COMMENT A. The resection margins are free of moderate to severe actinic keratosis. MICROSCOPIC DESCRIPTION Slides are reviewed. GROSS DESCRIPTION A - Received fresh for frozen section diagnosis labeled with the patient's name is a specimen designated lesion right lateral forehead. The specimen consists of a piece of harrell-white skin measuring 1.7 x 1.2 x 0.1 cm. The specimen is oriented by a suture at 12 o?clock. The specimen is inked as follows: 12 to 3 o?clock ? black, 3 to 6 o?clock ? blue, 6 to 9 o?clock ? green and 9 to 12 o?clock ? yellow. The specimen is serially sectioned and submitted entirely for frozen section diagnosis in two cassettes. B - Received in fixative is one container labeled with the patient's name and designated basal cell carcinoma right lateral forehead, suture at 12 o'clock. The specimen consists of a ring-shaped piece of harrell-white skin measuring 2.5 x 2.2 cm and up to 0.3 cm in thickness. There is a central area of defect measuring 2 x 1.5 cm. The specimen is inked as follows: 12 to 3 o?clock ? black, 3 to 6 o?clock ? blue, 6 to 9 o?clock ? green and 9 to 12 o?clock ? yellow. The ring-shaped defect is inked red. The specimen is serially sectioned and submitted entirely in two cassettes. / TERA:fallon 09/26/21 TC:0 CPT: 13912 x2, 78384, 05877
--- NOTE | 2021-09-26 00:28 | HP.PCM_ITS ---
History and Physical Date of Admission: 09/26/21 HISTORY OF PRESENT ILLNESS 85 year old woman presents for evaluation for TBSE. She has concerns about a scabby lesion on her right lateral forehead that has increased in size over the last several months and has developed irregular borders. She states it was burned off 5 years ago and has recurred. She also has concerns about rough areas on her forehead with some crusting. She complains of itching over these areas. She denies fever. She denies trauma. She denies recent infection. She denies any bleeding She has a personal history of skin cancer of the left ear that was excised in 1998. She presents at this time for further evaluation and treatment. PAST MEDICAL HISTORY Actinic keratosis Arthritis Back pain Benign essential tremor Bimalleolar fracture of left ankle Breast lump Cataracts, bilateral Cholecystitis, acute Cholelithiasis Colon polyps Generalized headaches GERD (gastroesophageal reflux disease) Hearing difficulty Heart murmur Hiatal hernia High cholesterol History of blood transfusion HLD (hyperlipidemia) Increased PTH level Osteoporosis UTI (urinary tract infection) Vision problems Vitamin D deficiency PAST SURGICAL HISTORY H/O: hysterectomy history common bile duct exploration (~10/17/19) History of basal cell carcinoma excision History of dilation and curettage History of hemorrhoidectomy History of laparoscopic cholecystectomy (~10/17/19) ALLERGIES meperidine [From Demerol] Sulfa (Sulfonamide Antibiotics) MEDICATIONS atorvastatin cyanocobalamin (vitamin B-12) propranolol tylenol menthol-zinc oxide pantoprazole imiquimod FAMILY HISTORY Sister - Down's syndrome Sister - Breast cancer, Cervical cancer, Ovarian cancer, Seizures, Skin cancer Son - Cancer, Diabetes Grandmother - Colon cancer Brother - Heart disease, Hypertension, Lung cancer Grandmother - CVA (cerebral vascular accident) SOCIAL HISTORY Smoking Status: Never smoker alcohol intake: current substance use type: does not use REVIEW OF SYSTEMS General - Denies fever, fatigue, and weight loss. Eyes - Has cataracts. Denies glaucoma. ENT - Denies nasal congestion and sore throat. Endocrine - Denies excessive thirst and urination. Skin - Denies suspicious lesions and skin cancer. Musculoskeletal - Has joint pain, back pain, and arthritis. Denies joint stiffness and weakness of muscles and joints, Neuro - Denies headaches. Cardiovascular - Denies chest pain, fatigue, and shortness of breath with exertion. Psych - Denies anxiety and depression. Respiratory - Denies chronic cough and shortness of breath. Gastrointestinal - Denies nausea, vomiting, diarrhea, and constipation. Hematologic - Denies abnormal bruising and bleeding. Genitourinary - Denies hematuria and urinary frequency. PHYSICAL EXAMINATION General - Alert and Oriented. HEENT - PERRL. EOMI. Throat is clear. On the right lateral forehead is a 1 cm erythematous lesion that is scabby. Has irregular borders. No ulceration. Lesion is nontender. Has scattered areas actinic damage on her forehead. Some of the damage appears erythematous with some crusting. No ulcerations. No other suspicious lesions noted. Neck - Supple and nontender. No cervical adenopathy. No suspicious lesions noted. Lungs - Clear to auscultation. Heart - Regular rate and rhythm. Abdomen - Soft and nondistended. Extremities - FROM. No axillary adenopathy. Radial pulses are palpable. No suspicious lesions noted. Neuro - CN II-XII grossly intact. Psych - Normal mood and affect. ASSESSMENT 1. 1 cm lesion right lateral forehead, clinically suspicious for carcinoma. 2. Scattered areas actinic damage forehead. 3. Personal history of skin cancer. 4. Family history of skin cancer. PLAN Patient has a scabby erythematous lesion that is increasing in size right lateral forehead. Has irregular borders. No ulceration. It is clinically consistent with a skin cancer, squamous cell carcinoma more than a basal cell carcinoma. Recommend excision of this lesion and send it to Pathology for analysis to rule out carcinoma. Because of suspicion for a squamous cell carcinoma, a full thickness excision will be done to look for invasion. If carcinoma is present then further excision will be done. Reconstruction will be with skin grafting. If the biopsy is negative, the wound will be smaller and a skin flap reconstruction may be possible. Surgery can be done under local anesthesia and IV sedation on an outpatient basis. Patient was informed of the risks and complications of the procedure including alternatives to surgery. These were discussed with the patient personally. Patient voices understanding and wishes to proceed. Some of the risks and complications were included in a form from the [employer]. She also has scattered areas of actinic damage forehead. Will try Aldara cream for therapy to treat the actinic damage. The cream is applied daily at night 5 days per week for 6 weeks. Then wait two weeks and followup for re-evaluation in 2 months. If any of the areas do not respond to the Aldara, then biopsy may be necessary. If biopsy is done then it will be sent to Pathology for analysis to rule out carcinoma. We discussed the current risks associated with COVID-19. While it is understood that there is a community spread of COVID-19, the risk of alison COVID-19 while at [facility] ([facility]) is very low; however, the risk cannot be completely mitigated because of the community spread of the disease. We discussed in detail the risk of exposure to and/or potential harm posed by the COVID-19 virus with having a surgery/procedure at this time versus the risk of delaying the surgery/procedure. It is not possible to know either the risk of delaying the surgery or procedure or chance of getting an infection with perfect accuracy, but a joint decision was made to proceed at this time with the scheduled surgery/procedure as indicated on the consent form. Patient was notified that we will need to comply with any screening or testing [facility] wishes to perform or that surgery may be delayed for any positive results. Procedure Criteria Procedure Type:?Elective COVID Risk Discussion: The surgeon/proceduralist and patient have discussed in detail the risk of exposure to and/or potential harm posed by the COVID-19 virus with having a surgery/procedure at this time versus the risk of delaying the surgery/procedure.? It is not possible to know either the risk of delaying the surgery or procedure or chance of getting an infection with perfect accuracy, but a joint decision was made between the patient and the surgeon/proceduralist to proceed at this time with the scheduled surgery/procedure as indicated on the consent form.
[2021-09-26] MEDS: Lactated Ringers 1,000 ML 15 ML IV (09:42)
[2021-09-26] MEDS: Lidocaine 1% /Epi 1:100 (20ml) 20 ML Vial (10:15)
[2021-09-26] MEDS: Mupirocin Ointment 22gm Tube 1 APPLIC (11:31)
--- NOTE | 2021-09-26 11:31 | OP.PCM_ITS ---
Problems Associated Problem List Diagnoses (1) Basal cell carcinoma of right forehead: (2) Actinic keratosis: (3) Personal history of skin cancer: (4) Family history of skin cancer: Report of Operation Date of Procedure: 09/26/21 Pre-Operative Diagnosis: 1. 1.4 cm ulcerated lesion right lateral forehead, clinically suspicious for carcinoma. 2. Scattered areas actinic damage forehead. 3. Personal history of skin cancer. 4. Family history of skin cancer. Post-Operative Diagnosis: 1. 1.4 cm ulcerated basal cell carcinoma right lateral forehead. 2. Scattered areas actinic damage forehead. 3. Personal history of skin cancer. 4. Family history of skin cancer. Surgery/Procedure Performed:: Excision 1.4 cm ulcerated basal cell carcinoma right lateral forehead with FTSG reconstruction from the right neck (5.76 cm2). Description of Surgical Findings:: 5 year old woman presents for evaluation for TBSE. She has concerns about a scabby lesion on her right lateral forehead that has increased in size over the last several months and has developed irregular borders. She states it was burned off 5 years ago and has recurred. She also has concerns about rough areas on her forehead with some crusting. She complains of itching over these areas. She denies fever. She denies trauma. She denies recent infection. She denies any bleeding She has a personal history of skin cancer of the left ear that was excised in 1998. Patient was informed of the risks and complications of the procedure including alternatives to surgery. These were discussed with the patient personally. Patient voices understanding and wishes to proceed. Some of the risks and complications were included in a form from the [employer]. Size of skin graft right lateral forehead - 2.4 x 2.4 cm. Surgeon: Vincent Hawk occupational medicine physician: Tess Poole Type of Anesthesia: Local MAC (xylocaine with epinephrine and IV sedation.) Specimen's removed: 1. Ulcerated lesion right lateral forehead to Pathology as a frozen section. 2. Ulcerated basal cell carcinoma right lateral forehead to Pathology. Drains: None. Estimated Blood Loss (mL): 20. Description of Procedure: Patient was taken to OR in supine position and was given IV sedation. The right face and right neck areas were prepped and draped in the usual fashion. SCD's were placed for DVT prophylaxis. Perioperative antibiotics were given intravenously. The ulcerated lesion right lateral forehead and the right neck areas were infiltrated with xylocaine and epinephrine. After waiting 5 minutes for the anesthetic to take effect, I excised the ulcerated lesion right lateral forehead as a full thickness excision. It was sent to Pathology as a frozen section for analysis to rule out carcinoma. The frozen section showed a basal cell carcinoma. This required further excision with a 5 mm margin in all directions thus making it a 2.4 cm excision. I excised further margin tissue down into the subcutaneous tissue. The underlying muscle was visible. A suture was marked at the 12 oclock position for pathology orientation. The additional tissue was sent to Pathology for analysis to rule out carcinoma at the margins. Hemostasis was obtained with electrocautery. I then went to the right neck and used a fresh scalped for the excision. I made an elliptical incision down into the subcutaneous tissue. The subcutaneous tissue was removed from the undersurface of the dermis thus making it a full thickness skin graft. The skin graft was placed in saline. The donor incision was irrigated with saline. Hemostasis was obtained with electrocautery. The donor incision was then closed in multiple layers using 5-0 Monocryl interrupted sutures for the deep dermis and subcutaneous tissue. The skin was approximated with 5-0 Prolene simple interrupted sutures. Antibiotic ointment was applied followed by a gauze dressing. I placed the full thickness skin graft on the right lateral forehead wound and secured it to the skin edges with 5-0 Chromic simple interrupted sutures. 5-0 Chromic sutures were also used for central quilting stabilization. This was followed by antibiotic ointment and Xeroform gauze and cotton balls soaked in saline. It was secured to the skin with 4-0 Nylon tie over stent suture dressing. Patient tolerated the procedure well and was sent to PACU in satisfactory c ondition. Patient will be sent home on antibiotics and pain medication. She will keep her head elevated during the initial postoperative period. Patient will followup laterl in the week for a wound check and takedown of the skin graft dressing and for discussion of the pathology report. The neck sutures will be removed at the following appointment, approximately 7-10 days. Grafts/Implants Used: None. Complications None. Admit VTE Documentation VTE Present on Admission: No VTE Mechan Device Prophylaxis: SCD's VTE Pharm Prophylaxis ordered?: No Addendum Addendum: Surgery Charges CPT - 81044 ICD-10 - C44.319, L57.0, Z85.828, Z80.8 95292 C44.319, L57.0, Z85.828, Z80.8
--- NOTE | 2021-09-26 11:57 | PCM.DC ---
Discharge Instructions Diet Discharge Diet: No restrictions Activity Discharge Activity: May Shower (in two days from the neck down. Can wash face gently in the sink. Try and minimize getting the skin graft dressing wet.) and - (keep head elevated. no heavy lifting.) May shower in (days): 2 (in two days from the neck down. Can wash face gently in the sink. Try and minimize getting the skin graft dressing wet.) May resume sexual activity in: No Restrictions Ice area for (Minutes): 5 (as needed for facial swelling.) Weight Bearing Status: Weight bearing as tolerated Lifting Restrictions: 10 lbs. Keep extremity elevated above heart level: - (elevate head. ) Dressing / Incision Call your doctor if your incision/area has: Continuous Slow Oozing, Sudden Increased Bleeding, Increased Pain/ Swelling, Increased Redness, Foul Smelling Discharge and Swelling at the incision site Call your doctor if you observe: Fever of 101 or Higher, Coldness, Increased Pain, Shortness of breath, Chest pain, Calf discomfort and Uncontrolled pain Suture Line Care: - (after right neck dressing removed in two days, apply antibiotic ointment to suture line daily.) Change Dressing in: 4 days (will change the operative skin graft dressing right lateral forehead in the office on Sunday08/31/21.) Remove Dressing in: 2 days (right neck dressing only.) Cleanse incision/area with: - (in two days, may shower from the neck down. And gently wash face in the sink. Minimize getting the skin graft dressing right lateral forehead wet.) Follow Up Care Please Follow Up With: Vincent Hawk MD When: sunday08/31/21 call [phone] for appt. Test Results: Test results from this visit will be discussed in further detail at your follow-up appointment, if applicable. Discharge Plan Admission Primary Reason for Your Visit: excision lesion right lateral forehead, clinically a carcinoma Attending Provider: Vincent Hawk Discharge Orders/Prescriptions Prescriptions: New clindamycin HCl [Cleocin HCl] 300 mg capsule 300 mg PO TID Qty: 15 RF: 0 oxycodone-acetaminophen [Percocet] 5-325 mg tablet 1 tab PO Q6H PRN (Reason: pain (scale score 7-10)) 5 Days Qty: 20 RF: 0 L.acidoph,saliva-B.bif-S.therm [Acidophilus Probiotic Blend] 175 mg capsule 1 cap PO DAILY Qty: 10 RF: 0 Continued atorvastatin 20 MG tablet 20 mg PO QHS RF: 0 propranolol 20 MG tablet 20 mg PO DAILY RF: 0 cyanocobalamin (vitamin B-12) 1,000 MCG capsule 1,000 mcg PO DAILY RF: 0 menthol-zinc oxide 1 APPLIC ointment 1 applic topical BID PRN PRN (Reason: Hemorrhoids) RF: 0 Held acetaminophen 500 MG tablet 1,000 mg PO Q8H PRN PRN (Reason: Pain Or Fever) RF: 0 Hold Instructions: Resume on 10/03/21. hold the Tylenol until the patient is not using Percocet any more. Percocet has added Tylenol. Referrals / Follow Up: KISHA GUTIERREZ [Other] Disposition Disposition (needs filled in before D/C Order can be placed): Home, Self Care
== END 2021-09-26 13:49 | disposition home or self-care (01) ==
LOC: SDC 08:39 → AC 08:41
PROVIDERS: Referring Provider Surgery; Visit Provider Surgery
PROC: (CPT 11643; principal; 2021-09-26 09:40)
DX: C44.319 Basal cell carcinoma of skin of other parts of face (principal); L57.0 Actinic keratosis; R23.3 Spontaneous ecchymoses; E78.00 Pure hypercholesterolemia, unspecified; M19.90 Unspecified osteoarthritis, unspecified site; M81.0 Age-related osteoporosis without current pathological fracture; Z79.899 Other long term (current) drug therapy; Z85.828 Personal history of other malignant neoplasm of skin; Z80.8 Family history of malignant neoplasm of other organs or systems; R11.2 Nausea with vomiting, unspecified; T41.45XA Adverse effect of unspecified anesthetic, initial encounter
CPT/HCPCS: 00300; 11643; 15240; 80048; 80076; 83690; 85025; 88305; 88331; 88332; 96361; 96374; 99283; J7120; J2405

== ENCOUNTER 2021-09-26 22:21 | Emergency (ER) | payer MEDICARE, BC, SELFPAY ==
[2021-09-26 22:21] VITALS: BP 153/70; PULSE 108; RESP 16; TEMP 36.3; O2SAT 96; BMI 26.0
--- NOTE | 2021-09-26 23:20 | EX.ED.DYSGE1 ---
HPI History of Present Illness Chief Complaint: Nausea/Vomiting Narrative Narrative: Patient is an 85-year-old female who presents ER with bouts of nausea and vomiting. Patient states she had an outpatient surgical procedure this morning. She states she was watched in PACU for a few hours and discharged home. She states she was home for approximately 45 minutes and ate a bowl of cereal and had a couple coffee and then began with bouts of nausea and vomiting. She states since that time she has had persistent vomiting throughout the afternoon and secondary to this comes in for reevaluation. [facility] Medical History Actinic keratosis Allergies Anemia Arthritis Arthritis Back pain Back pain Benign essential tremor Benign essential tremor Bimalleolar fracture of left ankle Bone fracture Breast lump Cancer Cataracts, bilateral Cholecystitis, acute Cholelithiasis Colon polyps Difficulty swallowing Family history of skin cancer Generalized headaches GERD (gastroesophageal reflux disease) Hearing difficulty Heart murmur Hiatal hernia High cholesterol High cholesterol History of ankle fracture History of blood transfusion History of edema History of hiatal hernia History of stress test HLD (hyperlipidemia) Increased PTH level Loss of hearing Migraine headache Neoplasm of skin of right lateral forehead Non-smoker Osteoporosis Personal history of skin cancer Skin cancer Tumors UTI (urinary tract infection) Vision problems Vitamin D deficiency Wears glasses Wears partial dentures Home Medications atorvastatin 20 mg PO QHS 02/03/19 [History Last Taken 10/16/19] cyanocobalamin (vitamin B-12) 1,000 mcg PO DAILY 02/03/19 [History Last Taken 10/16/19] propranolol 20 mg PO DAILY 02/03/19 [History Last Taken 09/26/21] acetaminophen 1,000 mg PO Q8H PRN PRN 02/07/19 [History Last Taken Unknown] menthol-zinc oxide 1 applic TOPICAL BID PRN PRN tube 02/17/19 [Rx Last Taken Unknown] L.acidoph,saliva-B.bif-S.therm [Acidophilus Probiotic Blend] 1 cap PO DAILY #10 cap 09/26/21 [Rx Last Taken Unknown] clindamycin HCl [Cleocin HCl] 300 mg PO TID #15 cap 09/26/21 [Rx Last Taken Unknown] oxycodone-acetaminophen [Percocet] 1 tab PO Q6H PRN 5 Days #20 tab 09/26/21 [Rx Last Taken Unknown] ondansetron 4 mg PO Q8H PRN #21 tab 09/27/21 [Rx Last Taken Unknown] Allergy/AdvReac Type Severity Reaction Status Date / Time meperidine [From Demerol] Allergy Unknown Verified 09/26/21 09:16 Sulfa (Sulfonamide Allergy Upset Verified 09/26/21 09:16 Antibiotics) Stomach Family History Sister Down's syndrome Sister Breast cancer Cervical cancer Ovarian cancer History of hysterectomy Seizures Skin cancer Son Cancer Diabetes Grandmother Colon cancer Brother Heart disease Brother Heart disease History of heart bypass surgery Brother Heart disease History of heart bypass surgery Hypertension Lung cancer Grandmother CVA (cerebral vascular accident) Surgical History H/O: hysterectomy history common bile duct exploration (~10/17/19) History of basal cell carcinoma excision History of dilation and curettage History of esophagogastroduodenoscopy (EGD) History of hemorrhoidectomy History of laparoscopic cholecystectomy (~10/17/19) Hx of colonoscopy Social History Smoking Status: Never smoker alcohol intake: current substance use type: does not use additional social history: Does Take Aspirin As Needed Does Take Ibuprofen As Needed ROS ROS ED Constitutional Constitutional ED: Denies chills or fever(s) ENT ENT ED: Denies sore throat Cardiovascular Cardiovascular: Denies chest pain Respiratory/Chest Respiratory/Chest: Denies cough or dyspnea Gastrointestinal Gastrointestinal: Reports nausea and vomiting; Denies abdominal pain or diarrhea Genitourinary Genitourinary ED: Denies dysuria Musculoskeletal Musculoskeletal: Denies myalgias Neurologic Neurologic: Denies headache(s) EXAM Physical Exam Const Vital Signs: 09/26/21 22:21 Temperature 97.4 F L Temperature Source Temporal Pulse Rate 108 H Respiratory Rate 16 Blood Pressure 153/70 H Blood Pressure Mean 97 Pulse Ox 96 Oxygen Delivery Method Room Air Positive well nourished and well developed General Appearance ED: well developed HEENT Reports moist mucous membranes Eyes PERRL and EOMs intact bilaterally Neck supple Resp normal respiratory effort and clear to auscultation bilaterally Cardio regular rate and regular rhythm Rate: other Other Details: Radial pulses are plus 2 out of 4 bilaterally are equal and symmetric GI non-distended GI Narrative: Abdomen is soft and nondistended with hyperactive bowel sounds. There is mild pain with palpation in the left upper and lower quadrants without voluntary guarding or rigidity no pulsatile mass. Palpation: soft Extremity normal to inspection Neuro oriented x3 and CN's II-XII intact bilaterally Sensorium / Orientation: alert Motor Exam: strength 5/5 throughout Psych mental status grossly normal Skin Skin Narrative: Patient has postsurgical changes to her scalp/forehead consistent with recent surgical procedure for removal of a basal cell carcinoma that overall is clean dry and intact MDM MDM MDM Narrative Medical decision making narrative: Patient presented to the ER with stable vitals and a nonsurgical abdomen. Her history of developing nausea and vomiting after anesthesia today is most consistent with postoperative anesthesia reaction versus any type of acute abdominal pathology. Basic labs were obtained which showed no clinically significant findings. Patient was given IV fluids and Zofran and had no further bouts of vomiting. On reevaluation she is resting comfortably and her abdomen remains soft and nonsurgical. Therefore at this time with stable vitals and labs a nonsurgical abdomen and resolution of symptoms I feel it is safe to discharge patient home with symptomatic care. Lab Data Attestation: I reviewed the patient's lab results. Labs: Laboratory Results - last 24 hr 09/26/21 09/26/21 23:20 23:20 WBC 5.5 RBC 4.13 L Hgb 12.9 Hct 38.0 MCV 92.0 MCH 31.2 MCHC 33.9 RDW Std Deviation 45.3 H RDW Coeff of Elva 13.3 Plt Count 158 MPV 10.3 Immature Gran % (Auto) 1.800 H Neut % (Auto) 80.9 H Lymph % (Auto) 11.8 L [place] % (Auto) 5.1 Eos % (Auto) 0.0 Baso % (Auto) 0.4 Absolute Neuts (auto) 4.5 Absolute Lymphs (auto) 0.65 L Nucleated RBC % 0 Sodium 135 L Potassium 3.9 Chloride 103 Carbon Dioxide 21.0 Anion Gap 11 BUN 14 Creatinine 0.66 Estim Creat Clear Calc 33.41 Est GFR (MDRD) Af Amer 110 Est GFR (MDRD) Non-Af 91 BUN/Creatinine Ratio 21.3 H Glucose 128 H Calcium 8.5 Total Bilirubin 1.00 Direct Bilirubin 0.24 AST 20 ALT 16 Alkaline Phosphatase 82 Total Protein 6.7 Albumin 3.3 Globulin 3.4 Lipase 147 Discharge Plan Triage Chief Complaint: Nausea/Vomiting ED Provider: Srinivasa Leon Dx/Rx/DC Orders Clinical Impression: Nausea & vomiting, Adverse effect of anesthesia Instructions: ED Vomiting (Adult) Prescriptions: New ondansetron 4 mg tablet,disintegrating 4 mg PO Q8H PRN (Reason: nausea and vomiting) Qty: 21 RF: 0 No Action atorvastatin 20 MG tablet 20 mg PO QHS RF: 0 propranolol 20 MG tablet 20 mg PO DAILY RF: 0 cyanocobalamin (vitamin B-12) 1,000 MCG capsule 1,000 mcg PO DAILY RF: 0 acetaminophen 500 MG tablet 1,000 mg PO Q8H PRN PRN (Reason: Pain Or Fever) RF: 0 Hold Instructions: Resume on 10/03/21. hold the Tylenol until the patient is not using Percocet any more. Percocet has added Tylenol. menthol-zinc oxide 1 APPLIC ointment 1 applic topical BID PRN PRN (Reason: Hemorrhoids) RF: 0 clindamycin HCl [Cleocin HCl] 300 mg capsule 300 mg PO TID Qty: 15 RF: 0 oxycodone-acetaminophen [Percocet] 5-325 mg tablet 1 tab PO Q6H PRN (Reason: pain (scale score 7-10)) 5 Days Qty: 20 RF: 0 L.acidoph,saliva-B.bif-S.therm [Acidophilus Probiotic Blend] 175 mg capsule 1 cap PO DAILY Qty: 10 RF: 0 Referrals: KISHA GUTIERREZ [Other] Disposition Disposition: Home, Self Care
[2021-09-26] MEDS: 0.9% Normal Saline 1,000 ML 999 ML IV (23:21)
[2021-09-26] MEDS: Ondansetron 4 MG/2 ML Vial IV (23:22)
[2021-09-26 23:34] LABS: Absolute Lymphocyte Count 0.65 X10^3/uL (0.83-4.51); Absolute Neutrophil Count 4.5 X10^3/uL (2.0-7.7); Basophil# 0.02 X10^3/uL; Basophil% 0.4 % (0-1); Hemoglobin 12.9 g/dL (12.0-15.0); Lymphocyte # 0.65 X10^3/ul (0.83-4.51); Lymphocyte % 11.8 % (19-41); Mean Corp Hgb Conc 33.9 g/dL (32-36); Mean Corpuscular Hgb 31.2 pg (27.0-32.0); Mean Platelet Vol. 10.3 fl (6.2-12.0); Monocyte# 0.28 X10^3/uL; Monocyte% 5.1 % (0-10); NRBC Flagged by Analyzer 0 % (0-5); Neutrophil # 4.45 X10^3/uL (2.7-7.7); Neutrophil % 80.9 % (47-70); Platelet Count 158 K/mm3 (150-450); RBC Distribution Width CV 13.3 % (11.6-14.6); RBC Distribution Width SD 45.3 fl (35.1-43.9); Red Blood Count 4.13 M/mm3 (4.2-5.4); White Blood Count 5.5 K/mm3 (4.4-11.0)
[2021-09-26 23:54] LABS: AST(SGOT) 20 U/L (15-37); Alanine Aminotransfer ALT/SGPT 16 U/L (13-56); Albumin, Serum 3.3 g/dL (3.2-5.0); Alkaline Phosphatase 82 U/L (45-117); Anion Gap 11 (5-15); BUN 14 mg/dL (7-18); BUN/Creat Ratio 21.3 RATIO (10-20); Bilirubin, Direct 0.24 mg/dL (0.00-0.30); Calcium,Total 8.5 mg/dL (8.5-10.1); Chloride 103 mmol/L (98-107); Creatinine, Serum 0.66 mg/dL (0.55-1.02); EST Glomerular Filtration Rate 91 mL/min (>60); Est Glom Filt Rate - Afr Amer 110 mL/min (>60); Estimated Creatinine Clearance 33.41 ml/min; Globulin 3.4 g/dL (2.2-4.2); Glucose 128 mg/dL (74-106); Lipase 147 U/L (73-393); Potassium 3.9 mmol/L (3.5-5.1); Protein, Total 6.7 g/dL (6.4-8.2); Sodium Level 135 mmol/L (136-145)
[2021-09-27 00:29] VITALS: BP 113/54; O2SAT 98
== END 2021-09-27 00:36 | disposition home or self-care (01) ==
PROVIDERS: Emergency Provider Emergency Medicine
DX: R11.2 Nausea with vomiting, unspecified (principal); T41.45XA Adverse effect of unspecified anesthetic, initial encounter
CPT/HCPCS: 80048; 80076; 83690; 85025; J2405

== ENCOUNTER → 2022-02-17 | Outpatient (CLI) | payer MEDICARE, BC, SELFPAY ==
[2022-02-17 12:51] LABS: AST(SGOT) 16 U/L (15-37); Alanine Aminotransfer ALT/SGPT 16 U/L (13-56); Albumin, Serum 3.4 g/dL (3.2-5.0); Alkaline Phosphatase 94 U/L (45-117); BUN 12 mg/dL (7-18); BUN/Creat Ratio 14.9 RATIO (10-20); Calcium,Total 9.1 mg/dL (8.5-10.1); EST Glomerular Filtration Rate 72 mL/min (>60); Est Glom Filt Rate - Afr Amer 87 mL/min (>60); Globulin 3.4 g/dL (2.2-4.2); Glucose 92 mg/dL (74-106); Protein, Total 6.8 g/dL (6.4-8.2)
[2022-02-17 12:52] LABS: Anion Gap 6 (5-15); Chloride 109 mmol/L (98-107); Cholesterol 170 mg/dL (200); High Density Lipoprotein 80 mg/dL; Sodium Level 141 mmol/L (136-145); Triglycerides 106 mg/dL; Very Low Density Lipoprotein 21 mg/dL (5-40)
[2022-02-17 12:55] LABS: Vitamin D,25 Hydroxy 42.3 ng/mL
== END | disposition home or self-care (01) ==
LOC: MTLAB 10:04
DX: E78.5 Hyperlipidemia, unspecified (principal); E55.9 Vitamin D deficiency, unspecified
CPT/HCPCS: 36415; 80053; 80061; 82306

== ENCOUNTER 2022-09-17 00:27 | Inpatient (IN) | payer MEDICARE, BC, SELFPAY ==
[2022-09-17] VITALS (7 sets, daily range): BP systolic 95–141; BP diastolic 44–82; PULSE 71–85; RESP 15–18; TEMP 36.2–37.2; O2SAT 93–99; BMI 26.6; BMI 26.4
--- NOTE | 2022-09-17 01:13 | CT_ITS ---
STUDY: CT ABDOMEN AND PELVIS WITH CONTRAST REASON FOR EXAM: Female, 86 years old. Abdominal pain. RADIATION DOSAGE (If Supplied By Facility): CTDIvol = ( 11.08 ) mGy, DLP = ( 615.78 ) mGycm TECHNIQUE: Transaxial images were obtained from the dome of the diaphragm to the symphysis pubis without oral contrast. 75 mL Isovue-370 intravenous contrast was administered. Sagittal and coronal images were reconstructed. Individualized dose optimization techniques were used for this CT. COMPARISON: October 16, 2019. FINDINGS: The visualized lung bases are unremarkable. The visualized portions of the heart are within normal limits. Large hiatal hernia unchanged. 1 cm low attenuation lesion left lobe of the liver present previously and not representing a simple cyst, not significantly changed since September 2019. There is non-visualization of the gallbladder, suggestive of a prior cholecystectomy. There are multiple benign calcified granulomata of the spleen. Normal pancreas. Normal bilateral adrenal glands. Normal right kidney. Normal left kidney. Normal visualized stomach. Fluid-filled loops of small bowel vasodilator 2.4 cm suggestive of a small bowel obstruction which may represent a closed loop obstruction. Normal colon. The appendix is visualized and appears normal, coronal image 68. There are atherosclerotic changes of the abdominal aorta. Normal inferior vena cava. Normal retroperitoneum. No intra-abdominal free air. Normal urinary bladder. There is absence of the uterus consistent with a prior hysterectomy. No adnexal mass is seen. Normal abdominal wall. Normal osseous structures. CT/Abdomen/Pelvis W IV Cont ONLY IMPRESSION: Mid small bowel obstruction which may represent a closed-loop obstruction. Old granulomatous disease. Large hiatal hernia unchanged. Benign lesion left lobe of the liver not significantly changed since September 2019. Electronically Signed: Homero Sanodval MD at 2:56 EST Reading Location ID and State: [id number] / , Service support ,
[2022-09-17 01:29] LABS: Absolute Lymphocyte Count 1.69 X10^3/uL (0.83-4.51); Absolute Neutrophil Count 5.8 X10^3/uL (2.0-7.7); Basophil# 0.03 X10^3/uL; Basophil% 0.4 % (0-1); Eosinophil# 0.04 X10^3/uL; Eosinophils% 0.5 % (0-5); Hematocrit 36.5 % (37-47); Hemoglobin 11.6 g/dL (12.0-15.0); Lymphocyte # 1.69 X10^3/ul (0.83-4.51); Lymphocyte % 20.5 % (19-41); Mean Corp Hgb Conc 31.8 g/dL (32-36); Mean Corpuscular Hgb 30.4 pg (27.0-32.0); Mean Corpuscular Volume 95.8 fL (81-99); Mean Platelet Vol. 10.8 fl (6.2-12.0); Monocyte# 0.68 X10^3/uL; Monocyte% 8.3 % (0-10); NRBC Flagged by Analyzer 0 % (0-5); Neutrophil # 5.77 X10^3/uL (2.7-7.7); Neutrophil % 69.9 % (47-70); Platelet Count 223 K/mm3 (150-450); RBC Distribution Width CV 13.4 % (11.6-14.6); RBC Distribution Width SD 47.1 fl (35.1-43.9); Red Blood Count 3.81 M/mm3 (4.2-5.4); White Blood Count 8.2 K/mm3 (4.4-11.0)
[2022-09-17] MEDS: Ondansetron 4 MG/2 ML Vial IV (01:29)
[2022-09-17] MEDS: fentaNYL 100 MCG/2 ML Ampul 50 MCG IV (01:29)
[2022-09-17 01:43] LABS: AST(SGOT) 15 U/L (15-37); Alanine Aminotransfer ALT/SGPT 16 U/L (13-56); Albumin, Serum 3.6 g/dL (3.2-5.0); Alkaline Phosphatase 88 U/L (45-117); Anion Gap 11 (5-15); BUN 17 mg/dL (7-18); BUN/Creat Ratio 22.5 RATIO (10-20); Chloride 108 mmol/L (98-107); Creatinine, Serum 0.75 mg/dL (0.55-1.02); EST Glomerular Filtration Rate 77 mL/min (>60); Est Glom Filt Rate - Afr Amer 93 mL/min (>60); Estimated Creatinine Clearance 29.91 ml/min; Globulin 3.3 g/dL (2.2-4.2); Glucose 155 mg/dL (74-106); Lipase 198 U/L (73-393); Potassium 3.6 mmol/L (3.5-5.1); Protein, Total 6.9 g/dL (6.4-8.2); Sodium Level 141 mmol/L (136-145)
[2022-09-17 02:08] LABS: Lactic Acid 1.8 mmol/L (0.4-1.9)
--- NOTE | 2022-09-17 03:39 | EX.ED.DYSGE1 ---
HPI History of Present Illness Chief Complaint: Abd Pain Narrative Narrative: Patient is an 86-year-old female with past medical history of hyperlipidemia and benign tremor. She also reports a past surgical history of cholecystectomy and hysterectomy. She states that this evening around 9 or 10:00 she began with generalized abdominal pain and cramping. She states she then developed bouts of nausea and vomiting. She states that she thought the symptoms would improve with time but they have not done so and secondary to this she comes in for evaluation [facility] Medical History (Updated 09/17/22 @ 05:[address] Srinivasa Leon, ) Actinic keratosis Allergies Anemia Arthritis Arthritis Back pain Back pain Basal cell carcinoma of right forehead Benign essential tremor Benign essential tremor Bimalleolar fracture of left ankle Bone fracture Breast lump Cancer Cataracts, bilateral Cholecystitis, acute Cholelithiasis Colon polyps Difficulty swallowing Family history of skin cancer Generalized headaches GERD (gastroesophageal reflux disease) Hearing difficulty Heart murmur Hiatal hernia High cholesterol High cholesterol History of ankle fracture History of blood transfusion History of edema History of hiatal hernia History of stress test HLD (hyperlipidemia) Increased PTH level Loss of hearing Migraine headache Neoplasm of skin of right lateral forehead Non-smoker Osteoporosis Personal history of skin cancer Skin cancer Tumors UTI (urinary tract infection) Vision problems Vitamin D deficiency Wears glasses Wears partial dentures Home Medications atorvastatin 20 mg tablet 20 mg PO DAILY CHOLESTEROL 02/03/19 [History Last Taken 09/16/22 05:00] cyanocobalamin (vitamin B-12) 1,000 mcg capsule 1,000 mcg PO DAILY SUPPLEMENT 02/03/19 [History Last Taken 09/16/22 05:00] propranolol 20 mg tablet 20 mg PO DAILY TREMORS 02/03/19 [History Last Taken 09/16/22 05:00] acetaminophen 500 mg tablet 1,000 mg PO Q8H PRN PRN Pain Or Fever 02/07/19 [History Last Taken Unknown] menthol 0.44 %-zinc oxide 20.6 % topical ointment 1 applic topical BID PRN PRN Hemorrhoids 02/17/19 [Rx Last Taken Unknown] cholecalciferol (vitamin D3) 25 mcg (1,000 unit) chewable tablet (Vitamin D3) 25 mcg PO DAILY vitamin 09/17/22 [History Last Taken 09/16/22 05:00] simethicone 125 mg capsule 125 mg PO DAILY gas 09/17/22 [History Last Taken 09/16/22 17:00] Allergy/AdvReac Type Severity Reaction Status Date / Time meperidine [From Demerol] Allergy Drowsiness Verified 09/17/22 05:31 Sulfa (Sulfonamide Allergy Upset Verified 09/17/22 05:31 Antibiotics) Stomach, rash Family History Sister Down's syndrome Sister Breast cancer Cervical cancer Ovarian cancer History of hysterectomy Seizures Skin cancer Son Cancer Diabetes Grandmother Colon cancer Brother Heart disease Brother Heart disease History of heart bypass surgery Brother Heart disease History of heart bypass surgery Hypertension Lung cancer Grandmother CVA (cerebral vascular accident) Surgical History H/O: hysterectomy history common bile duct exploration (~10/17/19) History of basal cell carcinoma excision History of dilation and curettage History of esophagogastroduodenoscopy (EGD) History of hemorrhoidectomy History of laparoscopic cholecystectomy (~10/17/19) Hx of colonoscopy Social History Smoking Status: Never smoker alcohol intake: current substance use type: does not use additional social history: Does Take Aspirin As Needed Does Take Ibuprofen As Needed ROS ROS ED Constitutional Constitutional ED: Denies chills or fever(s) ENT ENT ED: Denies sore throat Cardiovascular Cardiovascular: Denies chest pain Respiratory/Chest Respiratory/Chest: Denies cough or dyspnea Gastrointestinal Gastrointestinal: Reports abdominal pain, nausea and vomiting; Denies diarrhea Genitourinary Genitourinary ED: Denies dysuria Musculoskeletal Musculoskeletal: Denies myalgias Integumentary Denies rash Neurologic Neurologic: Denies headache(s) Hematologic/Lymphatic Hematologic/Lymphatic: Denies easy bleeding or easy bruising EXAM Physical Exam Const Vital Signs: 09/17/22 00:29 09/17/22 03:04 09/17/22 04:37 Temperature 97.1 F L 98.9 F Temperature Source Temporal Temporal Pulse Rate 80 85 83 Respiratory Rate 15 17 15 Blood Pressure 141/75 H 95/52 L 102/82 H Blood Pressure Mean 97 66 88 Blood Pressure Source Blood Pressure Position Blood Pressure Location Pulse Ox 97 99 98 Oxygen Delivery Method Room Air Room Air 09/17/22 05:12 Temperature 98.6 F Temperature Source Oral Pulse Rate 84 Respiratory Rate 18 Blood Pressure 119/56 L Blood Pressure Mean 77 Blood Pressure Source Monitor Blood Pressure Position Semi-Fowlers Blood Pressure Location Right Arm Pulse Ox 96 Oxygen Delivery Method Room Air Positive well nourished and well developed General Appearance ED: well developed HEENT Reports moist mucous membranes Eyes PERRL and EOMs intact bilaterally Neck supple Resp normal respiratory effort and clear to auscultation bilaterally Cardio regular rate and regular rhythm Rate: other Other Details: Radial pulses are plus 2 out of 4 bilaterally are equal and symmetric GI non-distended GI Narrative: Abdomen is soft but nondistended. Bowel sounds are hypoactive. No voluntary guarding or rigidity but there is mild diffuse tenderness with palpation. No increased tympany noted. No pulsatile mass. Auscultation: hypoactive bowel sounds Palpation: soft Extremity normal to inspection Neuro oriented x3 and CN's II-XII intact bilaterally Sensorium / Orientation: alert Psych mental status grossly normal Skin no rashes or lesions noted MDM MDM MDM Narrative Medical decision making narrative: Patient presented to the ER afebrile. She did not have overt distention or guarding but with her previous surgical history as well as the bouts of nausea and vomiting and pain and elected perform a CT scan with IV contrast. Basic labs revealed no clinically significant findings and CT scan showed changes consistent with a closed-loop bowel obstruction. Secondary to this the case was discussed with general surgery. They recommend NG tube placement and admission at this time. Therefore patient will be admitted to their service for further treatment of her obstruction. Lab Data Attestation: I reviewed the patient's lab results. Labs: Laboratory Results - last 24 hr 09/17/22 09/17/22 09/17/22 00:45 00:45 01:30 WBC 8.2 RBC 3.81 L Hgb 11.6 L Hct 36.5 L MCV 95.8 MCH 30.4 MCHC 31.8 L RDW Std Deviation 47.1 H RDW Coeff of Elva 13.4 Plt Count 223 MPV 10.8 Immature Gran % (Auto) 0.400 Neut % (Auto) 69.9 Lymph % (Auto) 20.5 [place] % (Auto) 8.3 Eos % (Auto) 0.5 Baso % (Auto) 0.4 Absolute Neuts (auto) 5.8 Absolute Lymphs (auto) 1.69 Nucleated RBC % 0 Sodium 141 Potassium 3.6 Chloride 108 H Carbon Dioxide 22.0 Anion Gap 11 BUN 17 Creatinine 0.75 Estim Creat Clear Calc 29.91 Est GFR (MDRD) Af Amer 93 Est GFR (MDRD) Non-Af 77 BUN/Creatinine Ratio 22.5 H Glucose 155 H Lactic Acid 1.8 Calcium 9.0 Total Bilirubin 0.70 Direct Bilirubin 0.20 AST 15 ALT 16 Alkaline Phosphatase 88 Total Protein 6.9 Albumin 3.6 Globulin 3.3 Lipase 198 Radiography Diagnostic Testing: Clinical Impression(s) from Imaging Studies Abdomen/Pelvis CT 09/17/22 01:13 IMPRESSION: Mid small bowel obstruction which may represent a closed-loop obstruction. Old granulomatous disease. Large hiatal hernia unchanged. Benign lesion left lobe of the liver not significantly changed since September 2019. Electronically Signed: Homero Sandoval MD at 2:56 EST Reading Location ID and State: [id number] / , Service support , Discharge Plan Dx/Rx/DC Orders Clinical Impression: Small bowel obstruction, Hyperlipidemia, Nausea & vomiting Disposition Disposition: Acute Care Hospital [facility] Discharge Date/Time: 09/17/22 05:10
--- NOTE | 2022-09-17 04:39 | ED.RN ---
ATTEMPT X 3 TO INSERT NG TUBE BY [address]. SANDOVAL MADE AWARE AND SAID TO HOLD OFF FOR NOW UNTIL MORNING
[2022-09-17] MEDS: Lactated Ringers 1,000 ML 100 ML IV ×2 (05:44→17:19)
--- NOTE | 2022-09-17 08:44 | PCM.HP.STD ---
HPI - General General Date of Admission: 09/17/22 Date of Service: 09/17/22 Chief Complaint: abdominal pain HPI Narrative JOSE TOLBERT, is a pleasant 86 F who presents with abdominal pain. She states that this began suddenly last evening around 9pm. She does not recall eating any possible spoiled food. She had severe sharp pain - generalized. She presented to [facility] ED and workup revealed: normal WBC with no left shift of differential. Normal serum creatinine and normal serum lactic acid. CT scan revealed possible closed loop small bowel obstruction. Presently, she denies any abdominal pain whatsoever. She states that she has not left off gas this morning. [facility] [place] Medical History Actinic keratosis Allergies Anemia Arthritis Arthritis Back pain Back pain Basal cell carcinoma of right forehead Benign essential tremor Benign essential tremor Bimalleolar fracture of left ankle Bone fracture Breast lump Cancer Cataracts, bilateral Cholecystitis, acute Cholelithiasis Colon polyps Difficulty swallowing Family history of skin cancer Generalized headaches GERD (gastroesophageal reflux disease) Hearing difficulty Heart murmur Hiatal hernia High cholesterol High cholesterol History of ankle fracture History of blood transfusion History of edema History of hiatal hernia History of stress test HLD (hyperlipidemia) Increased PTH level Loss of hearing Migraine headache Neoplasm of skin of right lateral forehead Non-smoker Osteoporosis Personal history of skin cancer Skin cancer Tumors UTI (urinary tract infection) Vision problems Vitamin D deficiency Wears glasses Wears partial dentures Home Medications atorvastatin 20 mg tablet 20 mg PO DAILY CHOLESTEROL 02/03/19 [History Last Taken 09/16/22 05:00] cyanocobalamin (vitamin B-12) 1,000 mcg capsule 1,000 mcg PO DAILY SUPPLEMENT 02/03/19 [History Last Taken 09/16/22 05:00] propranolol 20 mg tablet 20 mg PO DAILY TREMORS 02/03/19 [History Last Taken 09/16/22 05:00] acetaminophen 500 mg tablet 1,000 mg PO Q8H PRN PRN Pain Or Fever 02/07/19 [History Last Taken Unknown] menthol 0.44 %-zinc oxide 20.6 % topical ointment 1 applic topical BID PRN PRN Hemorrhoids 02/17/19 [Rx Last Taken Unknown] cholecalciferol (vitamin D3) 25 mcg (1,000 unit) chewable tablet (Vitamin D3) 25 mcg PO DAILY vitamin 09/17/22 [History Last Taken 09/16/22 05:00] simethicone 125 mg capsule 125 mg PO DAILY gas 09/17/22 [History Last Taken 09/16/22 17:00] Allergy/AdvReac Type Severity Reaction Status Date / Time meperidine [From Demerol] Allergy Drowsiness Verified 09/17/22 05:31 Sulfa (Sulfonamide Allergy Upset Verified 09/17/22 05:31 Antibiotics) Stomach, rash Family History Sister Down's syndrome Sister Breast cancer Cervical cancer Ovarian cancer History of hysterectomy Seizures Skin cancer Son Cancer Diabetes Grandmother Colon cancer Brother Heart disease Brother Heart disease History of heart bypass surgery Brother Heart disease History of heart bypass surgery Hypertension Lung cancer Grandmother CVA (cerebral vascular accident) Surgical History H/O: hysterectomy history common bile duct exploration (~10/17/19) History of basal cell carcinoma excision History of dilation and curettage History of esophagogastroduodenoscopy (EGD) History of hemorrhoidectomy History of laparoscopic cholecystectomy (~10/17/19) Hx of colonoscopy Social History Smoking Status: Never smoker alcohol intake: current substance use type: does not use additional social history: Does Take Aspirin As Needed Does Take Ibuprofen As Needed ROS Constitutional Constitutional: Denies anorexia or fever(s) Eyes Eyes: Denies change in vision ENT HEENT: Denies epistaxis Cardiovascular Cardiovascular: Denies chest pain at rest Respiratory/Chest Respiratory/Chest: Denies productive cough or shortness of breath at rest Gastrointestinal Gastrointestinal: Reports abdominal pain Genitourinary Genitourinary: Denies hematuria Musculoskeletal Musculoskeletal: Denies abnormal gait Integumentary Integumentary: Denies jaundice Vital Signs Vital Signs Vital Signs: 09/17/22 00:29 09/17/22 03:04 09/17/22 04:37 Temperature 97.1 F L 98.9 F Temperature Source Temporal Temporal Pulse Rate 80 85 83 Respiratory Rate 15 17 15 Respiratory Effort Respiratory Depth Respiratory Pattern Blood Pressure 141/75 H 95/52 L 102/82 H Blood Pressure Mean 97 66 88 Blood Pressure Source Blood Pressure Position Blood Pressure Location Pulse Ox 97 99 98 Oxygen Delivery Method Room Air Room Air 09/17/22 05:12 09/17/22 05:09 Temperature 98.6 F Temperature Source Oral Pulse Rate 84 Respiratory Rate 18 Respiratory Effort Normal Respiratory Depth Normal Respiratory Pattern Normal Blood Pressure 119/56 L Blood Pressure Mean 77 Blood Pressure Source Monitor Blood Pressure Position Semi-Fowlers Blood Pressure Location Right Arm Pulse Ox 96 Oxygen Delivery Method Room Air Room Air Weight Weight: 63.5 kg Body Mass Index (BMI) 26.4 Physical Exam Const oriented x3 and no apparent distress Resp normal respiratory effort Cardio regular rate GI GI Narrative: abdomen is soft and benign, tenderness only to deep palpation but no peritoneal signs Extremity no clubbing, cyanosis or edema Results Medical Records Data Attestation: I reviewed the patient's medical records Lab / Micro Data Attestation: I reviewed the patient's lab results. Result Diagrams: 09/17/22 00:45 09/17/22 00:45 Labs: Laboratory Results - last 24 hr 09/17/22 00:45: WBC 8.2, RBC 3.81 L, Hgb 11.6 L, Hct 36.5 L, MCV 95.8, MCH 30.4, MCHC 31.8 L, RDW Std Deviation 47.1 H, RDW Coeff of Elva 13.4, Plt Count 223, MPV 10.8, Immature Gran % (Auto) 0.400, Neut % (Auto) 69.9, Lymph % (Auto) 20.5, [place] % (Auto) 8.3, Eos % (Auto) 0.5, Baso % (Auto) 0.4, Absolute Neuts (auto) 5.8, Absolute Lymphs (auto) 1.69, Nucleated RBC % 0 09/17/22 00:45: Sodium 141, Potassium 3.6, Chloride 108 H, Carbon Dioxide 22.0, Anion Gap 11, BUN 17, Creatinine 0.75, Estim Creat Clear Calc 29.91, Est GFR (MDRD) Af Amer 93, Est GFR (MDRD) Non-Af 77, BUN/Creatinine Ratio 22.5 H, Glucose 155 H, Calcium 9.0, Total Bilirubin 0.70, Direct Bilirubin 0.20, AST 15, ALT 16, Alkaline Phosphatase 88, Total Protein 6.9, Albumin 3.6, Globulin 3.3, Lipase 198 09/17/22 01:30: Lactic Acid 1.8 Radiology Impression Abdomen/Pelvis CT 09/17/22 01:13 IMPRESSION: Mid small bowel obstruction which may represent a closed-loop obstruction. Old granulomatous disease. Large hiatal hernia unchanged. Benign lesion left lobe of the liver not significantly changed since September 2019. Electronically Signed: Homero Sandoval MD at 2:56 EST Reading Location ID and State: [id number] / , Service support , Assessment & Plan Assessment/Plan (1) Small bowel obstruction: PLAN: Clinically, the patient does not appear in extremis, despite findings on CT scan. She has a normal WBC with NO left shift of differential - normal serum lactic acid and normal serum creatinine. She could not tolerate placement of NG tube - given clinical findings of improvement - will hold off on this. Will repeat CT scan with oral gastrogaffin - this may be diagnostic as well as therapeutic. i have attempted to contact patient's daughter, Tessie, left message on her phone PLAN: Plan See above
--- NOTE | 2022-09-17 09:25 | CT_ITS ---
STUDY: CT ABDOMEN AND PELVIS WITH CONTRAST REASON FOR EXAM: Female, 86 years old. Abdominal pain and distention RADIATION DOSAGE (If Supplied By Facility): CTDIvol = ( 14.99 ) mGy, DLP = ( 1198.07 ) mGycm TECHNIQUE: Transaxial images were obtained from the dome of the diaphragm to the symphysis pubis with oral contrast. IV 70mL Isovue-[id number] was administered. Sagittal and coronal images were reconstructed. Individualized dose optimization techniques were used for this CT. COMPARISON: Earlier today FINDINGS: Chronic interstitial changes in the lung bases with bibasilar atelectasis likely due to a prominent retrocardiac hiatal hernia. The visualized portions of the heart are within normal limits. Liver is unremarkable aside from a stable 1.5 cm cyst in the left lobe. There is non-visualization of the gallbladder, which may be secondary to either contraction or a prior cholecystectomy. Normal spleen. Normal pancreas. Normal bilateral adrenal glands. Normal right kidney. Normal left kidney. As mentioned previously, there is a prominent retrocardiac hiatal hernia containing a majority of the stomach with evidence of GE reflux. Previously noted borderline dilated fluid-filled small bowel loops have improved slightly since the previous study and are less distended on current examination suggesting more of an ileus picture than obstruction. This is of particular note in the lower mid abdomen upper pelvis. Retained stool noted in the colon with scattered diverticula but no CT evidence of acute diverticulitis. Appendix not seen There is diffuse atherosclerotic calcification of the abdominal aorta, without a demonstrated aneurysm. Normal inferior vena cava. Normal retroperitoneum. Normal urinary bladder. There is absence of the uterus consistent with a prior hysterectomy. Normal abdominal wall. There are diffuse degenerative changes of the visualized lumbar spine, and pelvis. CT/Abdomen/Pelvis WITH Contrast IMPRESSION: Previously noted fluid distended small bowel loops have improved slightly since the previous study and are less distended suggesting more of an ileus picture then obstruction. Stable simple hepatic cyst, no specific follow-up needed. Stable large retrocardiac hiatal hernia with evidence of GE reflux Degenerative bony changes Electronically Signed: Esteban Patel MD at 12:02 EST ,
[2022-09-18] MEDS: Lactated Ringers 1,000 ML 100 ML IV (02:20)
[2022-09-18 04:00] VITALS: BP 126/52; PULSE 81; RESP 16; TEMP 36.9; O2SAT 96
--- NOTE | 2022-09-18 05:55 | RAD_ITS ---
INDICATION: bowel obstruction EXAMINATION/TECHNIQUE: X-RAY - XR Abdomen 1 View COMPARISON: CT September 17, 2022 FINDINGS: BOWEL GAS PATTERN: Nonspecific non-obstructive bowel gas pattern. Enteric contrast extends to the colonic splenic flexure. Contrast noted within normal caliber appendix. Distal rectosigmoid colonic gas noted. FREE AIR: Not well assessed on a supine view. No extraluminal oral contrast is suggested. ORGANOMEGALY: Not seen. CALCIFICATIONS: No concerning calcifications. LOWER CHEST: No acute pathology. BONES AND SOFT TISSUES: No acute pathology. RAD/Abdomen Single View IMPRESSION: Nonspecific non-obstructive bowel gas pattern. Electronically Signed: Romero Buck MD at 5:37 EST ,
--- NOTE | 2022-09-18 07:17 | PCM.PN.SRG ---
Subjective Subjective patient denies abdominal pain has passed flatus and had bowel movements wants to go home, feels hungry Objective Data Objective Data Vital Signs: Vital Signs Temp Pulse Resp BP Pulse Ox O2 Del Method 98.5 F 81 16 126/52 H 96 Room Air 09/18/22 04:00 09/18/22 04:00 09/18/22 04:00 09/18/22 04:00 09/18/22 04:00 09/18/22 04:00 Oxygen Delivery Method Room Air Weight: 63.5 kg Body Mass Index (BMI) 26.4 Intake & Output: Intake and Output for Last 24 Hours 09/16/22 09/17/22 09/18/22 23:59 23:59 23:59 Intake Total 1719 1450 / 1450 Balance 1719 1450 / 1450 Lab / Micro Data Attestation: I reviewed the patient's lab results. Result Diagrams: 09/17/22 00:45 09/17/22 00:45 Radiography Diagnostic Testing: Radiology Impression Abdomen/Pelvis CT 09/17/22 09:25 IMPRESSION: Previously noted fluid distended small bowel loops have improved slightly since the previous study and are less distended suggesting more of an ileus picture then obstruction. Stable simple hepatic cyst, no specific follow-up needed. Stable large retrocardiac hiatal hernia with evidence of GE reflux Degenerative bony changes Electronically Signed: Esteban Patel MD at 12:02 EST , KUB X-Ray 09/18/22 05:55 IMPRESSION: Nonspecific non-obstructive bowel gas pattern. Electronically Signed: Romero Buck MD at 5:37 EST , Physical Exam Const alert and oriented x3 General Appearance: cooperative and comfortable HEENT normocephalic and head/scalp atraumatic Neck supple Resp normal respiratory effort Effort and Inspection: able to speak in complete sentences GI GI Narrative: abdomen is soft and benign Assessment & Plan Assessment/Plan (1) Small bowel obstruction: PLAN: no SBO clinically discharge to home patient can follow up with her PCP regular diet at home no further treatment required PLAN: Plan see above
[2022-09-18 08:43] VITALS: BP 137/57; PULSE 89; RESP 16; TEMP 36.8; O2SAT 95
--- NOTE | 2022-09-18 10:46 | CASEMGMT ---
Pt has dc'd prior to RN CM assessment.
--- NOTE | 2022-09-18 12:29 | PHA.DC.MR ---
Pharmacy Service has performed discharge medication reconciliation for this patient. The patient's discharge medication list was reviewed for discrepancies and discrepancies were resolved. Home Medications atorvastatin 20 mg tablet 20 mg PO DAILY CHOLESTEROL 02/03/19 cyanocobalamin (vitamin B-12) 1,000 mcg capsule 1,000 mcg PO DAILY SUPPLEMENT 02/03/19 propranolol 20 mg tablet 20 mg PO DAILY TREMORS 02/03/19 acetaminophen 500 mg tablet 1,000 mg PO Q8H PRN PRN Pain Or Fever 02/07/19 menthol 0.44 %-zinc oxide 20.6 % topical ointment 1 applic topical BID PRN PRN Hemorrhoids 02/17/19 cholecalciferol (vitamin D3) 25 mcg (1,000 unit) chewable tablet (Vitamin D3) 25 mcg PO DAILY vitamin 09/17/22 simethicone 125 mg capsule 125 mg PO DAILY gas 09/17/22
== END 2022-09-18 09:35 | disposition home or self-care (01) | DRG 392 ==
LOC: ED 03:40 → MS3 03:56
PROVIDERS: Admitting Provider Surgery; Emergency Provider Emergency Medicine; Visit Provider Surgery
DX: R10.84 Generalized abdominal pain (principal); E78.00 Pure hypercholesterolemia, unspecified; R11.2 Nausea with vomiting, unspecified; Z79.899 Other long term (current) drug therapy; Z80.0 Family history of malignant neoplasm of digestive organs
CPT/HCPCS: 74018; 74177; 80048; 80076; 83605; 83690; 85025; 99285; J7040; J7120; Q9967; A4216; J2405

== ENCOUNTER → 2023-02-01 | Outpatient (CLI) | payer MEDICARE, BC, SELFPAY ==
[2023-02-01 10:03] LABS: Cholesterol 155 mg/dL (200); High Density Lipoprotein 76 mg/dL; Triglycerides 123 mg/dL; Very Low Density Lipoprotein 25 mg/dL (5-40)
== END | disposition home or self-care (01) ==
LOC: MTLAB 08:33
DX: E78.5 Hyperlipidemia, unspecified (principal)
CPT/HCPCS: 36415; 80061

== ENCOUNTER → 2023-08-17 | Outpatient (CLI) | payer MEDICARE, BC, SELFPAY ==
[2023-08-17 09:59] LABS: Color, Urine Yellow (Yellow); Glucose, Dipstick Normal (Normal); Ketone-Dipstick 5 mg/dl (Negative); Leukocyte Esterase-Dipstick 500 /ul (Negative); Nitrite-Dipstick Positive (Negative); Occult Blood-Urine 25 /ul (Negative); Protein-Dipstick 15 mg/dl (Negative); Urine Bilirubin Dipstick Negative (Negative); Urine Clarity Sl. Cloudy (Clear); Urine Urobilinogen Normal (Normal)
[2023-08-17 10:19] LABS: Hematocrit 25.6 % (37-47); Hemoglobin 7.2 g/dL (12.0-15.0); Mean Corp Hgb Conc 28.1 g/dL (32-36); Mean Corpuscular Hgb 24.2 pg (27.0-32.0); Mean Corpuscular Volume 85.9 fL (81-99); Mean Platelet Vol. 11.1 fl (6.2-12.0); Platelet Count 262 K/mm3 (150-450); RBC Distribution Width CV 17.7 % (11.6-14.6); Red Blood Count 2.98 M/mm3 (4.2-5.4); White Blood Count 3.9 K/mm3 (4.4-11.0)
[2023-08-17 10:33] LABS: ALB/GLOB Ratio 1.1 RATIO (0.9-2.4); AST(SGOT) 9 U/L (15-37); Alanine Aminotransfer ALT/SGPT 13 U/L (13-56); Albumin, Serum 3.3 g/dL (3.2-5.0); Alkaline Phosphatase 77 U/L (45-117); Anion Gap 6 (5-15); BUN 17 mg/dL (7-18); BUN/Creat Ratio 20.6 RATIO (10-20); Calcium,Total 8.6 mg/dL (8.5-10.1); Chloride 110 mmol/L (98-107); Cholesterol 129 mg/dL (200); Creatinine, Serum 0.82 mg/dL (0.55-1.02); EST Glomerular Filtration Rate 69 mL/min (>60); Est Glom Filt Rate - Afr Amer 84 mL/min (>60); Globulin 3.1 g/dL (2.2-4.2); Glucose 100 mg/dL (74-106); High Density Lipoprotein 77 mg/dL; Potassium 3.7 mmol/L (3.5-5.1); Protein, Total 6.4 g/dL (6.4-8.2); Sodium Level 143 mmol/L (136-145); Triglycerides 84 mg/dL; Very Low Density Lipoprotein 17 mg/dL (5-40)
== END | disposition home or self-care (01) ==
LOC: MTLAB 07:28
DX: E78.5 Hyperlipidemia, unspecified (principal)
CPT/HCPCS: 36415; 80053; 80061; 81002; 85027

== ENCOUNTER → 2023-10-12 | Outpatient (CLI) | payer MEDICARE, BC, SELFPAY ==
[2023-10-12 14:56] LABS: Hematocrit 39.3 % (37-47); Mean Corpuscular Hgb 24.8 pg (27.0-32.0); Mean Corpuscular Volume 88.5 fL (81-99); Mean Platelet Vol. 9.7 fl (6.2-12.0); POSITIVE MORPHOLOGY YES; Platelet Count 225 K/mm3 (150-450); RBC Distribution Width CV 21.6 % (11.6-14.6); Red Blood Count 4.44 M/mm3 (4.2-5.4); White Blood Count 4.2 K/mm3 (4.4-11.0)
[2023-10-12 14:58] LABS: Scan Indicated on CBC? Y/N YES- FLAGS NOTED
== END | disposition home or self-care (01) ==
DX: D64.9 Anemia, unspecified (principal)
CPT/HCPCS: 36415; 85027

== ENCOUNTER → 2024-02-15 | Outpatient (CLI) | payer MEDICARE, BC, SELFPAY ==
[2024-02-15 12:20] LABS: Absolute Lymphocyte Count 1.27 X10^3/uL (0.83-4.51); Absolute Neutrophil Count 3.1 X10^3/uL (2.0-7.7); Basophil# 0.02 X10^3/uL; Basophil% 0.4 % (0-1); Eosinophil# 0.03 X10^3/uL; Eosinophils% 0.6 % (0-5); Hematocrit 38.6 % (37-47); Hemoglobin 12.2 g/dL (12.0-15.0); Lymphocyte # 1.27 X10^3/ul (0.83-4.51); Lymphocyte % 25.8 % (19-41); Mean Corp Hgb Conc 31.6 g/dL (32-36); Mean Corpuscular Hgb 29.8 pg (27.0-32.0); Mean Corpuscular Volume 94.1 fL (81-99); Mean Platelet Vol. 10.7 fl (6.2-12.0); Monocyte# 0.48 X10^3/uL; Monocyte% 9.8 % (0-10); NRBC Flagged by Analyzer 0 % (0-5); Neutrophil # 3.11 X10^3/uL (2.7-7.7); Neutrophil % 63.2 % (47-70); Platelet Count 200 K/mm3 (150-450); RBC Distribution Width CV 15.6 % (11.6-14.6); RBC Distribution Width SD 53.1 fl (35.1-43.9); White Blood Count 4.9 K/mm3 (4.4-11.0)
== END | disposition home or self-care (01) ==
DX: E78.5 Hyperlipidemia, unspecified (principal)
CPT/HCPCS: 36415; 85025

== ENCOUNTER 2024-02-28 15:11 | Outpatient (CLI) | payer MEDICARE, BC, SELFPAY ==
[2024-02-28 17:42] LABS: Erythrocyte Sedimentation Rate 14 mm/hr (0-30)
[2024-02-28 17:57] LABS: Vitamin B12 > 2000 pg/mL (211-911); Vitamin D,25 Hydroxy 57.5 ng/mL
[2024-02-28 18:28] LABS: BNP,B-Type NATRIURETIC PEPTIDE 55.6 pg/mL (0-100)
[2024-02-28 18:54] LABS: ALB/GLOB Ratio 1.1 RATIO (0.9-2.4); AST(SGOT) 18 U/L (15-37); Alanine Aminotransfer ALT/SGPT 19 U/L (13-56); Albumin, Serum 3.6 g/dL (3.2-5.0); Alkaline Phosphatase 79 U/L (45-117); Anion Gap 7 (5-15); BUN 14 mg/dL (7-18); BUN/Creat Ratio 15.3 RATIO (10-20); CRP < 2.90 mg/L (0.0-3.0); Chloride 110 mmol/L (98-107); Creatinine, Serum 0.92 mg/dL (0.55-1.02); EST Glomerular Filtration Rate 61 mL/min (>60); Est Glom Filt Rate - Afr Amer 74 mL/min (>60); Ferritin 5 ng/mL (8-252); Globulin 3.4 g/dL (2.2-4.2); Glucose 121 mg/dL (74-106); Iron 40 ug/dL (50-170); Iron Binding Capacity,Total 412 ug/dL (250-450); PERCENT IRON SATURATION 9.7 % (15.0-55.0); Sodium Level 141 mmol/L (136-145); Thyroid Stim Hormone (TSH) 1.53 uIU/mL (0.358-3.74)
== END 2024-02-28 23:59 | disposition home or self-care (01) ==
LOC: MTLAB 15:12
DX: I73.9 Peripheral vascular disease, unspecified (principal); I87.2 Venous insufficiency (chronic) (peripheral); R41.3 Other amnesia; D50.9 Iron deficiency anemia, unspecified; E78.5 Hyperlipidemia, unspecified
CPT/HCPCS: 36415; 80053; 82306; 82607; 82728; 83540; 83550; 83880; 84439; 84443; 85652; 86140

== ENCOUNTER → 2024-04-02 | Outpatient (CLI) | payer MEDICARE, BC, SELFPAY ==
--- NOTE | 2024-04-02 13:55 | ART_ITS ---
Reason For Study: PVD Procedure A bilateral lower extremity continuous wave Doppler with analog waveform analysis and ankle brachial indexes. Left Segmental Pressures Left brachial= 147mmHg. Left posterior tibial artery = 188mmHg. Left dorsalis pedis artery = 165mmHg. Left digit = 69 mmHg. The left posterior tibial artery waveforms are triphasic. The left dorsalis pedis waveforms are triphasic. Right Segmental Pressures Right brachial= 149mmHg. Right posterior tibial artery = 190mmHg. Right dorsalis pedis artery = 148mmHg. Right digit = 102 mmHg. The right posterior tibial artery waveforms are triphasic. The right dorsalis pedis waveforms are biphasic. Indices The right ankle brachial index by the posterior tibial artery is 1.28. The right ankle brachial index by the dorsalis pedis is 0.99. The right digital-brachial index is 0.68. The left ankle brachial index by the posterior tibial artery is 1.26. The left ankle brachial index by the dorsalis pedis is 1.11. The left digital-brachial index is 0.46. VL/Ankle Brachial Index Interpretation Summary Right KATYA 1.28, normal. Doppler/PVR waveforms of the right leg normal at rest. TBI diminished, pedal/digit disease vs spasm. Left KATYA 1.26, normal. Doppler/PVR waveforms of the left leg normal at rest. TB I diminished, pedal/digit disease vs spasm. Ordering Physician: JOSELYN GARNER Referring Physician: Joselyn Garner Performed By: Navneet Ochoa RVT and Student
== END | disposition home or self-care (01) ==
LOC: CVS 13:54
DX: I73.9 Peripheral vascular disease, unspecified (principal)
CPT/HCPCS: 93922

== ENCOUNTER → 2024-04-30 | Outpatient (CLI) | payer MEDICARE, BC, SELFPAY ==
[2024-04-30 10:09] LABS: Hematocrit 42.5 % (37-47); Hemoglobin 13.7 g/dL (12.0-15.0); Mean Corp Hgb Conc 32.2 g/dL (32-36); Mean Corpuscular Hgb 31.4 pg (27.0-32.0); Mean Corpuscular Volume 97.5 fL (81-99); Mean Platelet Vol. 10.5 fl (6.2-12.0); Platelet Count 167 K/mm3 (150-450); RBC Distribution Width CV 14.7 % (11.6-14.6); RBC Distribution Width SD 53.2 fl (35.1-43.9); Red Blood Count 4.36 M/mm3 (4.2-5.4)
[2024-04-30 10:27] LABS: Ferritin 18 ng/mL (8-252); Iron 243 ug/dL (50-170); Iron Binding Capacity,Total 298 ug/dL (250-450); PERCENT IRON SATURATION 81.5 % (15.0-55.0)
== END | disposition home or self-care (01) ==
DX: D50.9 Iron deficiency anemia, unspecified (principal)
CPT/HCPCS: 36415; 82728; 83540; 83550; 85027

== ENCOUNTER → 2024-08-13 | Outpatient (CLI) | payer MEDICARE, BC, SELFPAY ==
[2024-08-13 12:17] LABS: Hemoglobin 11.9 g/dL (12.0-15.0); Mean Corp Hgb Conc 32.2 g/dL (32-36); Mean Corpuscular Hgb 32.4 pg (27.0-32.0); Mean Corpuscular Volume 100.8 fL (81-99); Mean Platelet Vol. 10.6 fl (6.2-12.0); Platelet Count 194 K/mm3 (150-450); RBC Distribution Width CV 13.2 % (11.6-14.6); RBC Distribution Width SD 49.1 fl (35.1-43.9); Red Blood Count 3.67 M/mm3 (4.2-5.4); White Blood Count 5.1 K/mm3 (4.4-11.0)
[2024-08-13 13:13] LABS: ALB/GLOB Ratio 1.1 RATIO (0.9-2.4); AST(SGOT) 14 U/L (15-37); Alanine Aminotransfer ALT/SGPT 17 U/L (13-56); Albumin, Serum 3.4 g/dL (3.2-5.0); Alkaline Phosphatase 75 U/L (45-117); Anion Gap 7 (5-15); BUN 16 mg/dL (7-18); BUN/Creat Ratio 22.1 RATIO (10-20); Calcium,Total 9.2 mg/dL (8.5-10.1); Chloride 111 mmol/L (98-107); Cholesterol 141 mg/dL (200); Creatinine, Serum 0.72 mg/dL (0.55-1.02); EST Glomerular Filtration Rate 80 mL/min (>60); Est Glom Filt Rate - Afr Amer 97 mL/min (>60); Glucose 94 mg/dL (74-106); High Density Lipoprotein 76 mg/dL; Iron 94 ug/dL (50-170); Iron Binding Capacity,Total 351 ug/dL (250-450); PERCENT IRON SATURATION 26.8 % (15.0-55.0); Potassium 3.6 mmol/L (3.5-5.1); Protein, Total 6.4 g/dL (6.4-8.2); Sodium Level 143 mmol/L (136-145); Triglycerides 101 mg/dL; Very Low Density Lipoprotein 20 mg/dL (5-40)
== END | disposition home or self-care (01) ==
LOC: MTLAB 09:27
DX: E78.5 Hyperlipidemia, unspecified (principal); D64.9 Anemia, unspecified
CPT/HCPCS: 36415; 80053; 80061; 83540; 83550; 85027

== ENCOUNTER → 2024-09-01 | Outpatient (CLI) | payer MEDICARE, BC, SELFPAY ==
[2024-09-01 10:08] LABS: Hematocrit 36.9 % (37-47); Platelet Count 178 K/mm3 (150-450)
[2024-09-01 10:28] LABS: ALB/GLOB Ratio 1.1 RATIO (0.9-2.4); AST(SGOT) 17 U/L (15-37); Alanine Aminotransfer ALT/SGPT 15 U/L (13-56); Albumin, Serum 3.5 g/dL (3.2-5.0); Alkaline Phosphatase 82 U/L (45-117); Anion Gap 4 (5-15); BUN 16 mg/dL (7-18); BUN/Creat Ratio 20.8 RATIO (10-20); Calcium,Total 8.8 mg/dL (8.5-10.1); Chloride 112 mmol/L (98-107); Cholesterol 158 mg/dL (200); Creatinine, Serum 0.77 mg/dL (0.55-1.02); EST Glomerular Filtration Rate 75 mL/min (>60); Est Glom Filt Rate - Afr Amer 91 mL/min (>60); Globulin 3.2 g/dL (2.2-4.2); Glucose 95 mg/dL (74-106); High Density Lipoprotein 86 mg/dL; Potassium 3.9 mmol/L (3.5-5.1); Protein, Total 6.7 g/dL (6.4-8.2); Sodium Level 143 mmol/L (136-145); Triglycerides 88 mg/dL; Very Low Density Lipoprotein 18 mg/dL (5-40)
[2024-09-01 16:56] LABS: Mean Corp Hgb Conc 32.4 g/dL (32-36); Mean Corpuscular Hgb 32.3 pg (27.0-32.0); Mean Corpuscular Volume 99.7 fL (81-99); Mean Platelet Vol. 11.2 fl (6.2-12.0); RBC Distribution Width SD 47.5 fl (35.1-43.9); Red Blood Count 3.75 M/mm3 (4.2-5.4)
== END | disposition home or self-care (01) ==
DX: D50.9 Iron deficiency anemia, unspecified (principal); E78.5 Hyperlipidemia, unspecified; I73.9 Peripheral vascular disease, unspecified; G25.0 Essential tremor
CPT/HCPCS: 36415; 80053; 80061; 85014; 85018; 85027; 85049